=== PATIENT | male | born 1960 | race African-American/Black ===

== ENCOUNTER 2021-12-23 10:17 | Inpatient (IN) | payer OTHER ==
[2021-12-23 11:17] VITALS: BMI 23.9
[2021-12-23] MEDS ORDERED: LOPERAMIDE HCL 2 MG CAPSULE PO PRN (12:11)
[2021-12-23] MEDS ORDERED: MAG HYDROX/AL HYDROX/SIMETH 30 ML UNIT-DOSE CUP PO PRN (12:11)
[2021-12-23] MEDS ORDERED: P-EPHED 60MG/TRIPROLIDI 2.5MG TABLET PO PRN (12:11)
[2021-12-23] MEDS ORDERED: MAGNESIUM CITRATE 300 ML BOTTLE PO PRN (12:11)
[2021-12-23] MEDS ORDERED: guaiFENesin 200 MG/10 ML 10 ML UNIT-DOSE CUPS PO PRN (12:11)
[2021-12-23] MEDS ORDERED: MAGNESIUM HYDROX 2400MG/30ML ORAL SUSPENSION 30 ML CUP PO PRN (12:11)
[2021-12-23] MEDS ORDERED: IPRATROPIUM/ALBUTEROL (COMBIVENT) RESPIMAT 20-100 MCG IH PRN (12:47)
[2021-12-23 16:59] LABS: CALCIUM 8.9 mg/dL (8.5-10.1)
[2021-12-23 17:00] LABS: ALBUMIN 3.6 g/dl (3.4-5.0); BLOOD UREA NITROGEN 10.9 mg/dL (7-18)
[2021-12-23 17:03] LABS: CREATININE 0.9 mg/dL (0.55-1.3)
[2021-12-23 17:04] LABS: HEMATOCRIT 42.9 % (35.4-49); HEMOGLOBIN 14.6 GM/dL (11.7-16.9); MCH 30.7 pg (25.7-33.7); MEAN CELL VOLUME 90.3 fl (80-96); MEAN PLT VOLUME 7.2 fl (7.5-11.1); PLATELET COUNT 115 10^3/uL (134-434); RBC 4.75 M/mm3 (4.00-5.60); RDW 16.9 % (11.9-15.9); WHITE BLOOD COUNT 4.4 K/mm3 (4.0-10.0)
[2021-12-23 17:05] LABS: BILIRUBIN,TOTAL 0.7 mg/dL (0.2-1); TOT PROT 6.8 g/dl (6.4-8.2)
[2021-12-23] MEDS: hydrOXYzine PAMOATE 25 MG CAPSULE (FP) PO SCH ×3 (18:27→22:35)
[2021-12-23 20:05] LABS: SYPHILIS W/ RPR CONF NON-REACTIVE (NONREACTIVE)
[2021-12-23] MEDS: IBUPROFEN 400 MG TABLET (FP) PO PRN (20:29)
[2021-12-23] MEDS ORDERED: MELATONIN 5 MG TABLETS PO SCH (22:00)
[2021-12-23] MEDS: MONTELUKAST NA 10 MG TABLET PO SCH (22:32)
[2021-12-23] MEDS: THIAMINE HCL 100 MG TABLET (FP) PO SCH (22:32)
[2021-12-23] MEDS: TAMSULOSIN HCL 0.4 MG CAP PO SCH (22:35)
[2021-12-23] MEDS: BACITRACIN 0.9 GM PACKET TP SCH (22:38)
[2021-12-24] MEDS: hydrOXYzine PAMOATE 25 MG CAPSULE (FP) PO SCH ×2 (07:14→10:48)
[2021-12-24] MEDS: TAMSULOSIN HCL 0.4 MG CAP PO SCH ×2 (10:41→21:39)
[2021-12-24] MEDS: BACITRACIN 0.9 GM PACKET TP SCH (10:41)
[2021-12-24] MEDS: LISINOPRIL 20 MG TABLET PO SCH (10:41)
[2021-12-24] MEDS: amLODIPine BESYLATE 10 MG TABLET (FP) PO SCH (10:41)
[2021-12-24] MEDS: PRENATAL VITAMINS W/ FOLIC ACID TABLET (FP) PO SCH (10:41)
[2021-12-24] MEDS: NICOTINE 7 MG/24 HOURS TOPICAL PATCH TD SCH (10:42)
[2021-12-24] MEDS: ESCITALOPRAM OXALATE 20 MG TABLET PO SCH (10:42)
[2021-12-24] MEDS: IBUPROFEN 400 MG TABLET (FP) PO PRN ×2 (10:44→21:40)
[2021-12-24 12:49] LABS: URINE APPEARANCE CLEAR; URINE BILIRUBIN NEGATIVE (NEGATIVE); URINE COLOR YELLOW; URINE GLUCOSE (UA) NEGATIVE (NEGATIVE); URINE KETONE NEGATIVE (NEGATIVE); URINE LEUK ESTERASE NEGATIVE (NEGATIVE); URINE NITRITE NEGATIVE (NEGATIVE); URINE PROTEIN NEGATIVE (NEGATIVE); URINE UROBILINOGEN 0.2 mg/dL (0.2-1.0)
[2021-12-24] MEDS: SILVER SULFADIAZINE 1% TOP CREAM 50 GM JAR TP SCH (14:34)
[2021-12-24] MEDS: MONTELUKAST NA 10 MG TABLET PO SCH (21:39)
[2021-12-24] MEDS: MELATONIN 5 MG TABLETS PO SCH (21:39)
[2021-12-24] MEDS: THIAMINE HCL 100 MG TABLET (FP) PO SCH (21:39)
[2021-12-25] MEDS: TAMSULOSIN HCL 0.4 MG CAP PO SCH ×2 (10:31→21:51)
[2021-12-25] MEDS: PRENATAL VITAMINS W/ FOLIC ACID TABLET (FP) PO SCH (10:31)
[2021-12-25] MEDS: NICOTINE 7 MG/24 HOURS TOPICAL PATCH TD SCH (10:31)
[2021-12-25] MEDS: amLODIPine BESYLATE 10 MG TABLET (FP) PO SCH (10:31)
[2021-12-25] MEDS: LISINOPRIL 20 MG TABLET PO SCH (10:31)
[2021-12-25] MEDS: SILVER SULFADIAZINE 1% TOP CREAM 50 GM JAR TP SCH (10:31)
[2021-12-25] MEDS: ESCITALOPRAM OXALATE 20 MG TABLET PO SCH (10:31)
[2021-12-25] MEDS: IBUPROFEN 400 MG TABLET (FP) PO PRN ×2 (10:31→21:52)
[2021-12-25] MEDS: MELATONIN 5 MG TABLETS PO SCH (21:51)
[2021-12-25] MEDS: THIAMINE HCL 100 MG TABLET (FP) PO SCH (21:51)
[2021-12-25] MEDS: MONTELUKAST NA 10 MG TABLET PO SCH (21:52)
[2021-12-26] MEDS: LISINOPRIL 20 MG TABLET PO SCH (09:42)
[2021-12-26] MEDS: TAMSULOSIN HCL 0.4 MG CAP PO SCH ×2 (09:42→21:13)
[2021-12-26] MEDS: amLODIPine BESYLATE 10 MG TABLET (FP) PO SCH (09:42)
[2021-12-26] MEDS: PRENATAL VITAMINS W/ FOLIC ACID TABLET (FP) PO SCH (09:42)
[2021-12-26] MEDS: ESCITALOPRAM OXALATE 20 MG TABLET PO SCH (09:43)
[2021-12-26] MEDS: IBUPROFEN 400 MG TABLET (FP) PO PRN ×2 (09:44→21:13)
[2021-12-26] MEDS: NICOTINE 7 MG/24 HOURS TOPICAL PATCH TD SCH (10:00)
[2021-12-26] MEDS: SILVER SULFADIAZINE 1% TOP CREAM 50 GM JAR TP SCH (10:30)
[2021-12-26] MEDS: THIAMINE HCL 100 MG TABLET (FP) PO SCH (21:13)
[2021-12-26] MEDS: MELATONIN 5 MG TABLETS PO SCH (21:13)
[2021-12-26] MEDS: MONTELUKAST NA 10 MG TABLET PO SCH (21:14)
[2021-12-26] MEDS: hydrOXYzine PAMOATE 25 MG CAPSULE (FP) PO PRN (21:15)
[2021-12-27] MEDS: PRENATAL VITAMINS W/ FOLIC ACID TABLET (FP) PO SCH (10:27)
[2021-12-27] MEDS: LISINOPRIL 20 MG TABLET PO SCH (10:27)
[2021-12-27] MEDS: TAMSULOSIN HCL 0.4 MG CAP PO SCH ×2 (10:28→22:06)
[2021-12-27] MEDS: amLODIPine BESYLATE 10 MG TABLET (FP) PO SCH (10:28)
[2021-12-27] MEDS: NICOTINE 7 MG/24 HOURS TOPICAL PATCH TD SCH (10:28)
[2021-12-27] MEDS: ESCITALOPRAM OXALATE 20 MG TABLET PO SCH (10:28)
[2021-12-27] MEDS: SILVER SULFADIAZINE 1% TOP CREAM 50 GM JAR TP SCH (10:28)
[2021-12-27] MEDS: IBUPROFEN 400 MG TABLET (FP) PO PRN (10:29)
[2021-12-27] MEDS: MELATONIN 5 MG TABLETS PO SCH (22:06)
[2021-12-27] MEDS: THIAMINE HCL 100 MG TABLET (FP) PO SCH (22:06)
[2021-12-27] MEDS: MONTELUKAST NA 10 MG TABLET PO SCH (22:11)
[2021-12-28] MEDS: PRENATAL VITAMINS W/ FOLIC ACID TABLET (FP) PO SCH (10:29)
[2021-12-28] MEDS: LISINOPRIL 20 MG TABLET PO SCH (10:29)
[2021-12-28] MEDS: NICOTINE 7 MG/24 HOURS TOPICAL PATCH TD SCH (10:29)
[2021-12-28] MEDS: TAMSULOSIN HCL 0.4 MG CAP PO SCH ×2 (10:29→21:30)
[2021-12-28] MEDS: SILVER SULFADIAZINE 1% TOP CREAM 50 GM JAR TP SCH (10:29)
[2021-12-28] MEDS: amLODIPine BESYLATE 10 MG TABLET (FP) PO SCH (10:29)
[2021-12-28] MEDS: ESCITALOPRAM OXALATE 20 MG TABLET PO SCH (10:29)
[2021-12-28] MEDS: ACETAMINOPHEN 325 MG TABLET (FP) PO PRN (10:30)
[2021-12-28] MEDS: MONTELUKAST NA 10 MG TABLET PO SCH (21:30)
[2021-12-28] MEDS: MELATONIN 5 MG TABLETS PO SCH (21:30)
[2021-12-28] MEDS: THIAMINE HCL 100 MG TABLET (FP) PO SCH (21:30)
[2021-12-29] MEDS: ESCITALOPRAM OXALATE 20 MG TABLET PO SCH (10:41)
[2021-12-29] MEDS: LISINOPRIL 20 MG TABLET PO SCH (10:41)
[2021-12-29] MEDS: amLODIPine BESYLATE 10 MG TABLET (FP) PO SCH (10:41)
[2021-12-29] MEDS: SILVER SULFADIAZINE 1% TOP CREAM 50 GM JAR TP SCH (10:41)
[2021-12-29] MEDS: TAMSULOSIN HCL 0.4 MG CAP PO SCH ×2 (10:41→21:04)
[2021-12-29] MEDS: PRENATAL VITAMINS W/ FOLIC ACID TABLET (FP) PO SCH (10:41)
[2021-12-29] MEDS: NICOTINE 7 MG/24 HOURS TOPICAL PATCH TD SCH (10:42)
[2021-12-29] MEDS: THIAMINE HCL 100 MG TABLET (FP) PO SCH (21:04)
[2021-12-29] MEDS: MELATONIN 5 MG TABLETS PO SCH (21:04)
[2021-12-29] MEDS: hydrOXYzine PAMOATE 25 MG CAPSULE (FP) PO PRN (21:04)
[2021-12-29] MEDS: MONTELUKAST NA 10 MG TABLET PO SCH (21:04)
[2021-12-30] MEDS: PRENATAL VITAMINS W/ FOLIC ACID TABLET (FP) PO SCH (10:43)
[2021-12-30] MEDS: amLODIPine BESYLATE 10 MG TABLET (FP) PO SCH (10:44)
[2021-12-30] MEDS: LISINOPRIL 20 MG TABLET PO SCH (10:44)
[2021-12-30] MEDS: ESCITALOPRAM OXALATE 20 MG TABLET PO SCH (10:44)
[2021-12-30] MEDS: TAMSULOSIN HCL 0.4 MG CAP PO SCH ×2 (10:44→21:05)
[2021-12-30] MEDS: SILVER SULFADIAZINE 1% TOP CREAM 50 GM JAR TP SCH (10:44)
[2021-12-30] MEDS: NICOTINE 7 MG/24 HOURS TOPICAL PATCH TD SCH (10:45)
[2021-12-30] MEDS: MONTELUKAST NA 10 MG TABLET PO SCH (21:05)
[2021-12-30] MEDS: THIAMINE HCL 100 MG TABLET (FP) PO SCH (21:05)
[2021-12-30] MEDS: MELATONIN 5 MG TABLETS PO SCH (21:06)
[2021-12-30] MEDS: hydrOXYzine PAMOATE 25 MG CAPSULE (FP) PO PRN (21:06)
[2021-12-30] MEDS: COLLOIDAL OATMEAL 1 BAR EACH TP PRN (21:08)
[2021-12-30] MEDS: NICOTINE 10 MG CARTRIDGE (INHALER) IH PRN (21:08)
[2021-12-31] MEDS: PRENATAL VITAMINS W/ FOLIC ACID TABLET (FP) PO SCH (10:34)
[2021-12-31] MEDS: TAMSULOSIN HCL 0.4 MG CAP PO SCH ×2 (10:35→21:15)
[2021-12-31] MEDS: ESCITALOPRAM OXALATE 20 MG TABLET PO SCH (10:35)
[2021-12-31] MEDS: amLODIPine BESYLATE 10 MG TABLET (FP) PO SCH (10:35)
[2021-12-31] MEDS: LISINOPRIL 20 MG TABLET PO SCH (10:35)
[2021-12-31] MEDS: NICOTINE 7 MG/24 HOURS TOPICAL PATCH TD SCH (10:36)
[2021-12-31] MEDS: SILVER SULFADIAZINE 1% TOP CREAM 50 GM JAR TP SCH (10:36)
[2021-12-31] MEDS: hydrOXYzine PAMOATE 25 MG CAPSULE (FP) PO PRN (21:15)
[2021-12-31] MEDS: THIAMINE HCL 100 MG TABLET (FP) PO SCH (21:15)
[2021-12-31] MEDS: MELATONIN 5 MG TABLETS PO SCH (21:15)
[2021-12-31] MEDS: MONTELUKAST NA 10 MG TABLET PO SCH (21:15)
[2022-01-01] MEDS: LISINOPRIL 20 MG TABLET PO SCH (10:26)
[2022-01-01] MEDS: TAMSULOSIN HCL 0.4 MG CAP PO SCH ×2 (10:26→22:03)
[2022-01-01] MEDS: amLODIPine BESYLATE 10 MG TABLET (FP) PO SCH (10:26)
[2022-01-01] MEDS: PRENATAL VITAMINS W/ FOLIC ACID TABLET (FP) PO SCH (10:26)
[2022-01-01] MEDS: ESCITALOPRAM OXALATE 20 MG TABLET PO SCH (10:26)
[2022-01-01] MEDS: NICOTINE 7 MG/24 HOURS TOPICAL PATCH TD SCH (10:27)
[2022-01-01] MEDS: SILVER SULFADIAZINE 1% TOP CREAM 50 GM JAR TP SCH (10:27)
[2022-01-01] MEDS: MONTELUKAST NA 10 MG TABLET PO SCH (22:03)
[2022-01-01] MEDS: THIAMINE HCL 100 MG TABLET (FP) PO SCH (22:03)
[2022-01-01] MEDS: MELATONIN 5 MG TABLETS PO SCH (22:03)
[2022-01-02] MEDS: LISINOPRIL 20 MG TABLET PO SCH (10:28)
[2022-01-02] MEDS: PRENATAL VITAMINS W/ FOLIC ACID TABLET (FP) PO SCH (10:28)
[2022-01-02] MEDS: TAMSULOSIN HCL 0.4 MG CAP PO SCH ×2 (10:28→22:13)
[2022-01-02] MEDS: amLODIPine BESYLATE 10 MG TABLET (FP) PO SCH (10:28)
[2022-01-02] MEDS: ESCITALOPRAM OXALATE 20 MG TABLET PO SCH (10:28)
[2022-01-02] MEDS: NICOTINE 7 MG/24 HOURS TOPICAL PATCH TD SCH (10:28)
[2022-01-02] MEDS: SILVER SULFADIAZINE 1% TOP CREAM 50 GM JAR TP SCH (10:29)
[2022-01-02] MEDS: MELATONIN 5 MG TABLETS PO SCH (22:13)
[2022-01-02] MEDS: MONTELUKAST NA 10 MG TABLET PO SCH (22:13)
[2022-01-02] MEDS: THIAMINE HCL 100 MG TABLET (FP) PO SCH (22:13)
[2022-01-03] MEDS: ESCITALOPRAM OXALATE 20 MG TABLET PO SCH (10:35)
[2022-01-03] MEDS: amLODIPine BESYLATE 10 MG TABLET (FP) PO SCH (10:35)
[2022-01-03] MEDS: LISINOPRIL 20 MG TABLET PO SCH (10:35)
[2022-01-03] MEDS: TAMSULOSIN HCL 0.4 MG CAP PO SCH ×2 (10:35→22:19)
[2022-01-03] MEDS: PRENATAL VITAMINS W/ FOLIC ACID TABLET (FP) PO SCH (10:35)
[2022-01-03] MEDS: NICOTINE 7 MG/24 HOURS TOPICAL PATCH TD SCH (10:36)
[2022-01-03] MEDS: SILVER SULFADIAZINE 1% TOP CREAM 50 GM JAR TP SCH (10:36)
[2022-01-03] MEDS: NICOTINE 10 MG CARTRIDGE (INHALER) IH PRN (20:02)
[2022-01-03] MEDS: THIAMINE HCL 100 MG TABLET (FP) PO SCH (22:19)
[2022-01-03] MEDS: MELATONIN 5 MG TABLETS PO SCH (22:19)
[2022-01-03] MEDS: MONTELUKAST NA 10 MG TABLET PO SCH (22:19)
[2022-01-04] MEDS: amLODIPine BESYLATE 10 MG TABLET (FP) PO SCH (11:16)
[2022-01-04] MEDS: ESCITALOPRAM OXALATE 20 MG TABLET PO SCH (11:16)
[2022-01-04] MEDS: PRENATAL VITAMINS W/ FOLIC ACID TABLET (FP) PO SCH (11:16)
[2022-01-04] MEDS: TAMSULOSIN HCL 0.4 MG CAP PO SCH ×2 (11:17→21:11)
[2022-01-04] MEDS: NICOTINE 7 MG/24 HOURS TOPICAL PATCH TD SCH (11:17)
[2022-01-04] MEDS: SILVER SULFADIAZINE 1% TOP CREAM 50 GM JAR TP SCH (11:19)
[2022-01-04] MEDS: LISINOPRIL 20 MG TABLET PO SCH (12:07)
[2022-01-04] MEDS: THIAMINE HCL 100 MG TABLET (FP) PO SCH (21:11)
[2022-01-04] MEDS: MELATONIN 5 MG TABLETS PO SCH (21:12)
[2022-01-04] MEDS: MONTELUKAST NA 10 MG TABLET PO SCH (21:14)
[2022-01-05] MEDS: LISINOPRIL 20 MG TABLET PO SCH (10:28)
[2022-01-05] MEDS: ESCITALOPRAM OXALATE 20 MG TABLET PO SCH (10:28)
[2022-01-05] MEDS: TAMSULOSIN HCL 0.4 MG CAP PO SCH ×2 (10:28→21:11)
[2022-01-05] MEDS: amLODIPine BESYLATE 10 MG TABLET (FP) PO SCH (10:28)
[2022-01-05] MEDS: NICOTINE 7 MG/24 HOURS TOPICAL PATCH TD SCH (10:29)
[2022-01-05] MEDS: PRENATAL VITAMINS W/ FOLIC ACID TABLET (FP) PO SCH (10:29)
[2022-01-05] MEDS: METHYL SALICYLATE/MENTHOL OINT 30 GM TUBE TP SCH ×2 (10:29→21:55)
[2022-01-05] MEDS: SILVER SULFADIAZINE 1% TOP CREAM 50 GM JAR TP SCH (10:30)
[2022-01-05] MEDS: HYDROCORTISONE 0.5% TOPICAL CREAM 30 GM TUBE TP SCH ×2 (10:39→21:55)
[2022-01-05] MEDS: NICOTINE 10 MG CARTRIDGE (INHALER) IH PRN (18:56)
[2022-01-05] MEDS: THIAMINE HCL 100 MG TABLET (FP) PO SCH (21:11)
[2022-01-05] MEDS: MONTELUKAST NA 10 MG TABLET PO SCH (21:11)
[2022-01-05] MEDS: MELATONIN 5 MG TABLETS PO SCH (21:56)
[2022-01-06 07:34] VITALS: RESP 18
[2022-01-06] MEDS: amLODIPine BESYLATE 10 MG TABLET (FP) PO SCH (10:37)
[2022-01-06] MEDS: ESCITALOPRAM OXALATE 20 MG TABLET PO SCH (10:37)
[2022-01-06] MEDS: LISINOPRIL 20 MG TABLET PO SCH (10:37)
[2022-01-06] MEDS: PRENATAL VITAMINS W/ FOLIC ACID TABLET (FP) PO SCH (10:37)
[2022-01-06] MEDS: TAMSULOSIN HCL 0.4 MG CAP PO SCH ×2 (10:38→21:29)
[2022-01-06] MEDS: SILVER SULFADIAZINE 1% TOP CREAM 50 GM JAR TP SCH (10:39)
[2022-01-06] MEDS: METHYL SALICYLATE/MENTHOL OINT 30 GM TUBE TP SCH ×2 (10:39→21:30)
[2022-01-06] MEDS: HYDROCORTISONE 0.5% TOPICAL CREAM 30 GM TUBE TP SCH ×2 (10:39→21:30)
[2022-01-06] MEDS: NICOTINE 7 MG/24 HOURS TOPICAL PATCH TD SCH (10:39)
[2022-01-06] MEDS: MONTELUKAST NA 10 MG TABLET PO SCH (21:29)
[2022-01-06] MEDS: THIAMINE HCL 100 MG TABLET (FP) PO SCH (21:29)
[2022-01-06] MEDS: MELATONIN 5 MG TABLETS PO SCH (21:30)
[2022-01-07] MEDS: PRENATAL VITAMINS W/ FOLIC ACID TABLET (FP) PO SCH (10:39)
[2022-01-07] MEDS: METHYL SALICYLATE/MENTHOL OINT 30 GM TUBE TP SCH ×2 (10:40→22:15)
[2022-01-07] MEDS: TAMSULOSIN HCL 0.4 MG CAP PO SCH ×2 (10:40→21:32)
[2022-01-07] MEDS: ESCITALOPRAM OXALATE 20 MG TABLET PO SCH (10:40)
[2022-01-07] MEDS: LISINOPRIL 20 MG TABLET PO SCH (10:40)
[2022-01-07] MEDS: amLODIPine BESYLATE 10 MG TABLET (FP) PO SCH (10:40)
[2022-01-07] MEDS: HYDROCORTISONE 0.5% TOPICAL CREAM 30 GM TUBE TP SCH ×2 (10:41→22:16)
[2022-01-07] MEDS: NICOTINE 7 MG/24 HOURS TOPICAL PATCH TD SCH (10:41)
[2022-01-07] MEDS: MONTELUKAST NA 10 MG TABLET PO SCH (21:32)
[2022-01-07] MEDS: THIAMINE HCL 100 MG TABLET (FP) PO SCH (21:32)
[2022-01-07] MEDS: MELATONIN 5 MG TABLETS PO SCH (22:16)
[2022-01-08] MEDS: PRENATAL VITAMINS W/ FOLIC ACID TABLET (FP) PO SCH (10:41)
[2022-01-08] MEDS: TAMSULOSIN HCL 0.4 MG CAP PO SCH ×2 (10:43→21:03)
[2022-01-08] MEDS: LISINOPRIL 20 MG TABLET PO SCH (10:44)
[2022-01-08] MEDS: amLODIPine BESYLATE 10 MG TABLET (FP) PO SCH (10:44)
[2022-01-08] MEDS: NICOTINE 7 MG/24 HOURS TOPICAL PATCH TD SCH (10:44)
[2022-01-08] MEDS: ESCITALOPRAM OXALATE 20 MG TABLET PO SCH (10:44)
[2022-01-08] MEDS: HYDROCORTISONE 0.5% TOPICAL CREAM 30 GM TUBE TP SCH ×2 (10:44→21:04)
[2022-01-08] MEDS: METHYL SALICYLATE/MENTHOL OINT 30 GM TUBE TP SCH ×2 (10:47→21:04)
[2022-01-08] MEDS: THIAMINE HCL 100 MG TABLET (FP) PO SCH (21:03)
[2022-01-08] MEDS: MONTELUKAST NA 10 MG TABLET PO SCH (21:03)
[2022-01-08] MEDS: MELATONIN 5 MG TABLETS PO SCH (21:04)
[2022-01-09] MEDS: ESCITALOPRAM OXALATE 20 MG TABLET PO SCH (10:36)
[2022-01-09] MEDS: TAMSULOSIN HCL 0.4 MG CAP PO SCH ×2 (10:36→21:20)
[2022-01-09] MEDS: PRENATAL VITAMINS W/ FOLIC ACID TABLET (FP) PO SCH (10:36)
[2022-01-09] MEDS: amLODIPine BESYLATE 10 MG TABLET (FP) PO SCH (10:36)
[2022-01-09] MEDS: NICOTINE 7 MG/24 HOURS TOPICAL PATCH TD SCH (10:37)
[2022-01-09] MEDS: LISINOPRIL 20 MG TABLET PO SCH (10:37)
[2022-01-09] MEDS: HYDROCORTISONE 0.5% TOPICAL CREAM 30 GM TUBE TP SCH ×2 (10:37→21:21)
[2022-01-09] MEDS: METHYL SALICYLATE/MENTHOL OINT 30 GM TUBE TP SCH ×2 (10:37→22:37)
[2022-01-09] MEDS: NICOTINE 10 MG CARTRIDGE (INHALER) IH PRN (12:46)
[2022-01-09] MEDS: MONTELUKAST NA 10 MG TABLET PO SCH (21:20)
[2022-01-09] MEDS: THIAMINE HCL 100 MG TABLET (FP) PO SCH (21:20)
[2022-01-09] MEDS: MELATONIN 5 MG TABLETS PO SCH (21:21)
[2022-01-10] MEDS: hydrOXYzine PAMOATE 25 MG CAPSULE (FP) PO PRN (01:59)
[2022-01-10] MEDS: TAMSULOSIN HCL 0.4 MG CAP PO SCH ×2 (09:51→21:08)
[2022-01-10] MEDS: PRENATAL VITAMINS W/ FOLIC ACID TABLET (FP) PO SCH (09:51)
[2022-01-10] MEDS: amLODIPine BESYLATE 10 MG TABLET (FP) PO SCH (09:52)
[2022-01-10] MEDS: ESCITALOPRAM OXALATE 20 MG TABLET PO SCH (09:52)
[2022-01-10] MEDS: LISINOPRIL 20 MG TABLET PO SCH (09:52)
[2022-01-10] MEDS: HYDROCORTISONE 0.5% TOPICAL CREAM 30 GM TUBE TP SCH ×2 (09:53→21:09)
[2022-01-10] MEDS: NICOTINE 7 MG/24 HOURS TOPICAL PATCH TD SCH (09:54)
[2022-01-10] MEDS: METHYL SALICYLATE/MENTHOL OINT 30 GM TUBE TP SCH ×2 (11:49→21:09)
[2022-01-10] MEDS: THIAMINE HCL 100 MG TABLET (FP) PO SCH (21:08)
[2022-01-10] MEDS: MELATONIN 5 MG TABLETS PO SCH (21:09)
[2022-01-10] MEDS: MONTELUKAST NA 10 MG TABLET PO SCH (22:15)
[2022-01-11] MEDS: METHYL SALICYLATE/MENTHOL OINT 30 GM TUBE TP SCH ×2 (10:42→21:29)
[2022-01-11] MEDS: ACETAMINOPHEN 325 MG TABLET (FP) PO PRN (10:43)
[2022-01-11] MEDS: TAMSULOSIN HCL 0.4 MG CAP PO SCH ×2 (10:44→21:28)
[2022-01-11] MEDS: PRENATAL VITAMINS W/ FOLIC ACID TABLET (FP) PO SCH (10:44)
[2022-01-11] MEDS: LISINOPRIL 20 MG TABLET PO SCH (10:44)
[2022-01-11] MEDS: amLODIPine BESYLATE 10 MG TABLET (FP) PO SCH (10:44)
[2022-01-11] MEDS: ESCITALOPRAM OXALATE 20 MG TABLET PO SCH (10:44)
[2022-01-11] MEDS: NICOTINE 7 MG/24 HOURS TOPICAL PATCH TD SCH (10:44)
[2022-01-11] MEDS: HYDROCORTISONE 0.5% TOPICAL CREAM 30 GM TUBE TP SCH ×2 (11:17→21:29)
[2022-01-11] MEDS: NICOTINE 10 MG CARTRIDGE (INHALER) IH PRN (12:40)
[2022-01-11] MEDS: MONTELUKAST NA 10 MG TABLET PO SCH (21:28)
[2022-01-11] MEDS: MELATONIN 5 MG TABLETS PO SCH (21:28)
[2022-01-11] MEDS: THIAMINE HCL 100 MG TABLET (FP) PO SCH (21:28)
[2022-01-12] MEDS: hydrOXYzine PAMOATE 25 MG CAPSULE (FP) PO PRN ×2 (02:46→21:08)
[2022-01-12] MEDS: LISINOPRIL 20 MG TABLET PO SCH (10:42)
[2022-01-12] MEDS: amLODIPine BESYLATE 10 MG TABLET (FP) PO SCH (10:42)
[2022-01-12] MEDS: ESCITALOPRAM OXALATE 20 MG TABLET PO SCH (10:42)
[2022-01-12] MEDS: PRENATAL VITAMINS W/ FOLIC ACID TABLET (FP) PO SCH (10:42)
[2022-01-12] MEDS: TAMSULOSIN HCL 0.4 MG CAP PO SCH ×2 (10:43→21:08)
[2022-01-12] MEDS: NICOTINE 7 MG/24 HOURS TOPICAL PATCH TD SCH (10:43)
[2022-01-12] MEDS: METHYL SALICYLATE/MENTHOL OINT 30 GM TUBE TP SCH ×2 (10:44→21:38)
[2022-01-12] MEDS: COLLOIDAL OATMEAL 1 BAR EACH TP PRN (19:33)
[2022-01-12] MEDS: NICOTINE 10 MG CARTRIDGE (INHALER) IH PRN (19:34)
[2022-01-12] MEDS: MONTELUKAST NA 10 MG TABLET PO SCH (21:08)
[2022-01-12] MEDS: THIAMINE HCL 100 MG TABLET (FP) PO SCH (21:08)
[2022-01-12] MEDS: MELATONIN 5 MG TABLETS PO SCH (21:08)
[2022-01-13 07:37] VITALS: TEMP 97.6
[2022-01-13] MEDS: METHYL SALICYLATE/MENTHOL OINT 30 GM TUBE TP SCH (09:05)
[2022-01-13] MEDS: ESCITALOPRAM OXALATE 20 MG TABLET PO SCH (09:05)
[2022-01-13] MEDS: PRENATAL VITAMINS W/ FOLIC ACID TABLET (FP) PO SCH (09:05)
[2022-01-13] MEDS: LISINOPRIL 20 MG TABLET PO SCH (09:05)
[2022-01-13] MEDS: amLODIPine BESYLATE 10 MG TABLET (FP) PO SCH (09:05)
[2022-01-13] MEDS: NICOTINE 7 MG/24 HOURS TOPICAL PATCH TD SCH (09:05)
[2022-01-13] MEDS: TAMSULOSIN HCL 0.4 MG CAP PO SCH (09:05)
[2022-01-13 09:07] VITALS: BP 118/69; PULSE 92
== END 2022-01-13 09:10 | disposition home or self-care (01) | DRG 772 ==
LOC: YASAS 10:17 → Y5N 17:14
PROVIDERS: ADMIT Allergy & Immunology; ATTEND Psychiatry & Neurology Pain Medicine
PROC: HZ42ZZZ Group Counseling for Substance Abuse Treatment, Cognitive-Behavioral (ICD-10-PCS; principal; 2021-12-23)
DX: F10.20 Alcohol dependence, uncomplicated (principal); F14.20 Cocaine dependence, uncomplicated; F12.20 Cannabis dependence, uncomplicated; F17.210 Nicotine dependence, cigarettes, uncomplicated; F19.24 Other psychoactive substance dependence with psychoactive substance-induced mood disorder; I10 Essential (primary) hypertension; J44.9 Chronic obstructive pulmonary disease, unspecified; M25.561 Pain in right knee; M25.571 Pain in right ankle and joints of right foot; M54.50 Low back pain, unspecified; G89.29 Other chronic pain; N40.0 Benign prostatic hyperplasia without lower urinary tract symptoms; R21 Rash and other nonspecific skin eruption; Z62.810 Personal history of physical and sexual abuse in childhood; T21.24XD Burn of second degree of lower back, subsequent encounter; T21.23XD Burn of second degree of upper back, subsequent encounter; X97.XXXD Assault by smoke, fire and flames, subsequent encounter
CPT/HCPCS: 36415; 71046-TC-FY; 80053; 81003; 85027; 86780; 86803; 93005; 93010; C9803-CS; J3535; U0003; U0005

== ENCOUNTER 2022-02-22 11:08 | Inpatient (IN) | payer OTHER ==
[2022-02-22 11:52] VITALS: BMI 25.2
[2022-02-22] MEDS ORDERED: FLU VACC QS2022-23(6MOS UP)/PF 60 MCG/0.5 ML SYRINGE IM ONE (12:14)
[2022-02-22] MEDS ORDERED: LOPERAMIDE HCL 2 MG CAPSULE PO PRN (15:56)
[2022-02-22] MEDS ORDERED: MAG HYDROX/AL HYDROX/SIMETH 30 ML UNIT-DOSE CUP PO PRN (15:56)
[2022-02-22] MEDS ORDERED: MAGNESIUM HYDROX 2400MG/30ML ORAL SUSPENSION 30 ML CUP PO PRN (15:56)
[2022-02-22] MEDS ORDERED: NICOTINE 10 MG CARTRIDGE (INHALER) IH PRN (15:56)
[2022-02-22] MEDS ORDERED: MAGNESIUM CITRATE 300 ML BOTTLE PO PRN (15:56)
[2022-02-22] MEDS ORDERED: PATIENT'S OWN MEDICATION (NON-FORMULARY) (Lisinopril [Prinivil -] 40 MG Tablet) PO SCH (16:00)
[2022-02-22] MEDS: PRENATAL VITAMINS W/ FOLIC ACID TABLET (FP) PO SCH (16:47)
[2022-02-22] MEDS: HYDROCHLOROTHIAZIDE 25 MG TABLET (FP) PO SCH (16:48)
[2022-02-22] MEDS: amLODIPine BESYLATE 10 MG TABLET (FP) PO SCH (16:48)
[2022-02-22] MEDS: LISINOPRIL 20 MG TABLET PO SCH (16:48)
[2022-02-22] MEDS: TAMSULOSIN HCL 0.4 MG CAP PO SCH (16:48)
[2022-02-22] MEDS: NICOTINE 7 MG/24 HOURS TOPICAL PATCH TD SCH (16:52)
[2022-02-22] MEDS: MELATONIN 5 MG TABLETS PO SCH (21:33)
[2022-02-22] MEDS: THIAMINE HCL 100 MG TABLET (FP) PO SCH (21:33)
[2022-02-22] MEDS: MONTELUKAST NA 10 MG TABLET PO SCH (21:33)
[2022-02-23 07:11] VITALS: RESP 18
[2022-02-23] MEDS: PRENATAL VITAMINS W/ FOLIC ACID TABLET (FP) PO SCH (10:17)
[2022-02-23] MEDS: TAMSULOSIN HCL 0.4 MG CAP PO SCH (10:17)
[2022-02-23] MEDS: amLODIPine BESYLATE 10 MG TABLET (FP) PO SCH (10:18)
[2022-02-23] MEDS: NICOTINE 7 MG/24 HOURS TOPICAL PATCH TD SCH (10:18)
[2022-02-23] MEDS: HYDROCHLOROTHIAZIDE 25 MG TABLET (FP) PO SCH (10:18)
[2022-02-23] MEDS: LISINOPRIL 20 MG TABLET PO SCH (10:18)
[2022-02-23 10:53] LABS: HEMATOCRIT 40.7 % (35.4-49); HEMOGLOBIN 13.7 GM/dL (11.7-16.9); MCH 30.7 pg (25.7-33.7); MCHC 33.8 g/dl (32.0-35.9); MEAN CELL VOLUME 90.7 fl (80-96); MEAN PLT VOLUME 7.4 fl (7.5-11.1); PLATELET COUNT 142 10^3/uL (134-434); RBC 4.48 M/mm3 (4.00-5.60); RDW 16.9 % (11.9-15.9); URINE APPEARANCE CLEAR; URINE BILIRUBIN NEGATIVE (NEGATIVE); URINE COLOR YELLOW; URINE GLUCOSE (UA) NEGATIVE (NEGATIVE); URINE KETONE NEGATIVE (NEGATIVE); URINE LEUK ESTERASE NEGATIVE (NEGATIVE); URINE NITRITE NEGATIVE (NEGATIVE); URINE PROTEIN NEGATIVE (NEGATIVE); URINE UROBILINOGEN 0.2 mg/dL (0.2-1.0); WHITE BLOOD COUNT 3.1 K/mm3 (4.0-10.0)
[2022-02-23 11:29] LABS: CALCIUM 9.5 mg/dL (8.5-10.1)
[2022-02-23 11:30] LABS: ALBUMIN 3.4 g/dl (3.4-5.0); BLOOD UREA NITROGEN 16.6 mg/dL (7-18)
[2022-02-23 11:33] LABS: CREATININE 1.1 mg/dL (0.55-1.3)
[2022-02-23 11:36] LABS: BILIRUBIN,TOTAL 0.5 mg/dL (0.2-1)
[2022-02-23 11:49] LABS: SYPHILIS W/ RPR CONF NON-REACTIVE (NONREACTIVE)
[2022-02-23] MEDS ORDERED: ALBUTEROL SO4 HFA INHALER IH PRN (11:58)
[2022-02-23] MEDS ORDERED: FLU VACC QS2022-23(6MOS UP)/PF 60 MCG/0.5 ML SYRINGE IM ONE (12:00)
[2022-02-23] MEDS ORDERED: PNEUMOCOCCAL 23 VACCINE 0.5 ML VIAL IM ONE (12:06)
[2022-02-23] MEDS: IBUPROFEN 400 MG TABLET (FP) PO PRN (12:09)
[2022-02-23] MEDS ORDERED: PNEUMOC 20-VAL CONJ-DIP CRM/PF 0.5 ML SYRINGE IM ONE (13:15)
[2022-02-23] MEDS: guaiFENesin 200 MG/10 ML 10 ML UNIT-DOSE CUPS PO PRN (15:14)
[2022-02-23] MEDS: ACETAMINOPHEN 325 MG TABLET (FP) PO PRN (15:14)
[2022-02-23] MEDS: THIAMINE HCL 100 MG TABLET (FP) PO SCH (21:09)
[2022-02-23] MEDS: MELATONIN 5 MG TABLETS PO SCH (21:09)
[2022-02-23] MEDS: MONTELUKAST NA 10 MG TABLET PO SCH (21:09)
[2022-02-24] MEDS: ACETAMINOPHEN 325 MG TABLET (FP) PO PRN ×2 (02:17→18:21)
[2022-02-24] MEDS: P-EPHED 60MG/TRIPROLIDI 2.5MG TABLET PO PRN ×2 (06:05→21:26)
[2022-02-24] MEDS: guaiFENesin 200 MG/10 ML 10 ML UNIT-DOSE CUPS PO PRN (06:05)
[2022-02-24] MEDS: TAMSULOSIN HCL 0.4 MG CAP PO SCH (07:36)
[2022-02-24] MEDS: PRENATAL VITAMINS W/ FOLIC ACID TABLET (FP) PO SCH (09:06)
[2022-02-24] MEDS: IBUPROFEN 400 MG TABLET (FP) PO PRN (09:08)
[2022-02-24] MEDS: HYDROCHLOROTHIAZIDE 25 MG TABLET (FP) PO SCH (09:09)
[2022-02-24] MEDS: amLODIPine BESYLATE 10 MG TABLET (FP) PO SCH (09:09)
[2022-02-24] MEDS: NICOTINE 7 MG/24 HOURS TOPICAL PATCH TD SCH (09:09)
[2022-02-24] MEDS: LISINOPRIL 20 MG TABLET PO SCH (09:09)
[2022-02-24] MEDS: MONTELUKAST NA 10 MG TABLET PO SCH (21:26)
[2022-02-24] MEDS: MELATONIN 5 MG TABLETS PO SCH (21:26)
[2022-02-24] MEDS: THIAMINE HCL 100 MG TABLET (FP) PO SCH (21:26)
[2022-02-25] MEDS: TAMSULOSIN HCL 0.4 MG CAP PO SCH (07:56)
[2022-02-25] MEDS: PRENATAL VITAMINS W/ FOLIC ACID TABLET (FP) PO SCH (09:01)
[2022-02-25] MEDS: NICOTINE 7 MG/24 HOURS TOPICAL PATCH TD SCH (09:01)
[2022-02-25] MEDS: guaiFENesin 200 MG/10 ML 10 ML UNIT-DOSE CUPS PO PRN (09:04)
[2022-02-25] MEDS: P-EPHED 60MG/TRIPROLIDI 2.5MG TABLET PO PRN ×2 (09:04→21:09)
[2022-02-25] MEDS: hydrOXYzine PAMOATE 25 MG CAPSULE (FP) PO PRN (09:04)
[2022-02-25] MEDS: HYDROCHLOROTHIAZIDE 25 MG TABLET (FP) PO SCH (09:05)
[2022-02-25] MEDS: IBUPROFEN 400 MG TABLET (FP) PO PRN (09:05)
[2022-02-25] MEDS: amLODIPine BESYLATE 10 MG TABLET (FP) PO SCH (09:05)
[2022-02-25] MEDS: LISINOPRIL 20 MG TABLET PO SCH (09:05)
[2022-02-25] MEDS: ACETAMINOPHEN 325 MG TABLET (FP) PO PRN (17:02)
[2022-02-25] MEDS ORDERED: TAMSULOSIN HCL 0.4 MG CAP PO ONE (20:08)
[2022-02-25] MEDS: MELATONIN 5 MG TABLETS PO SCH (21:08)
[2022-02-25] MEDS: MONTELUKAST NA 10 MG TABLET PO SCH (21:08)
[2022-02-25] MEDS: THIAMINE HCL 100 MG TABLET (FP) PO SCH (21:08)
[2022-02-26] MEDS: IBUPROFEN 400 MG TABLET (FP) PO PRN (08:52)
[2022-02-26] MEDS: hydrOXYzine PAMOATE 25 MG CAPSULE (FP) PO PRN (08:53)
[2022-02-26] MEDS: guaiFENesin 200 MG/10 ML 10 ML UNIT-DOSE CUPS PO PRN (08:53)
[2022-02-26] MEDS: TAMSULOSIN HCL 0.4 MG CAP PO SCH (08:55)
[2022-02-26] MEDS: HYDROCHLOROTHIAZIDE 25 MG TABLET (FP) PO SCH (09:04)
[2022-02-26] MEDS: ESCITALOPRAM OXALATE 10 MG TABLET PO SCH (09:04)
[2022-02-26] MEDS: PRENATAL VITAMINS W/ FOLIC ACID TABLET (FP) PO SCH (09:04)
[2022-02-26] MEDS: amLODIPine BESYLATE 10 MG TABLET (FP) PO SCH (09:04)
[2022-02-26] MEDS: LISINOPRIL 20 MG TABLET PO SCH (09:06)
[2022-02-26] MEDS: NICOTINE 7 MG/24 HOURS TOPICAL PATCH TD SCH (09:07)
[2022-02-26] MEDS: MELATONIN 5 MG TABLETS PO SCH (21:40)
[2022-02-26] MEDS: MONTELUKAST NA 10 MG TABLET PO SCH (21:40)
[2022-02-26] MEDS: THIAMINE HCL 100 MG TABLET (FP) PO SCH (21:41)
[2022-02-27] MEDS: HYDROCHLOROTHIAZIDE 25 MG TABLET (FP) PO SCH (09:24)
[2022-02-27] MEDS: TAMSULOSIN HCL 0.4 MG CAP PO SCH (09:24)
[2022-02-27] MEDS: NICOTINE 7 MG/24 HOURS TOPICAL PATCH TD SCH (09:25)
[2022-02-27] MEDS: PRENATAL VITAMINS W/ FOLIC ACID TABLET (FP) PO SCH (09:25)
[2022-02-27] MEDS: amLODIPine BESYLATE 10 MG TABLET (FP) PO SCH (09:25)
[2022-02-27] MEDS: ESCITALOPRAM OXALATE 10 MG TABLET PO SCH (09:25)
[2022-02-27] MEDS: LISINOPRIL 20 MG TABLET PO SCH (09:25)
[2022-02-27] MEDS: THIAMINE HCL 100 MG TABLET (FP) PO SCH (21:30)
[2022-02-27] MEDS: MONTELUKAST NA 10 MG TABLET PO SCH (21:30)
[2022-02-27] MEDS: MELATONIN 5 MG TABLETS PO SCH (21:30)
[2022-02-27] MEDS: IBUPROFEN 400 MG TABLET (FP) PO PRN (21:30)
[2022-02-27] MEDS: P-EPHED 60MG/TRIPROLIDI 2.5MG TABLET PO PRN (21:31)
[2022-02-28] MEDS: amLODIPine BESYLATE 10 MG TABLET (FP) PO SCH (10:19)
[2022-02-28] MEDS: TAMSULOSIN HCL 0.4 MG CAP PO SCH (10:19)
[2022-02-28] MEDS: ESCITALOPRAM OXALATE 10 MG TABLET PO SCH (10:19)
[2022-02-28] MEDS: HYDROCHLOROTHIAZIDE 25 MG TABLET (FP) PO SCH (10:19)
[2022-02-28] MEDS: PRENATAL VITAMINS W/ FOLIC ACID TABLET (FP) PO SCH (10:19)
[2022-02-28] MEDS: LISINOPRIL 20 MG TABLET PO SCH (10:19)
[2022-02-28] MEDS: NICOTINE 7 MG/24 HOURS TOPICAL PATCH TD SCH (10:20)
[2022-02-28] MEDS: MELATONIN 5 MG TABLETS PO SCH (21:38)
[2022-02-28] MEDS: THIAMINE HCL 100 MG TABLET (FP) PO SCH (21:38)
[2022-02-28] MEDS: MONTELUKAST NA 10 MG TABLET PO SCH (21:38)
[2022-03-01] MEDS: ACETAMINOPHEN 325 MG TABLET (FP) PO PRN (00:48)
[2022-03-01] MEDS: TAMSULOSIN HCL 0.4 MG CAP PO SCH (07:32)
[2022-03-01] MEDS: PRENATAL VITAMINS W/ FOLIC ACID TABLET (FP) PO SCH (10:46)
[2022-03-01] MEDS: ESCITALOPRAM OXALATE 10 MG TABLET PO SCH (10:46)
[2022-03-01] MEDS: NICOTINE 7 MG/24 HOURS TOPICAL PATCH TD SCH (10:46)
[2022-03-01] MEDS: LISINOPRIL 20 MG TABLET PO SCH (10:46)
[2022-03-01] MEDS: amLODIPine BESYLATE 10 MG TABLET (FP) PO SCH (10:46)
[2022-03-01] MEDS: HYDROCHLOROTHIAZIDE 25 MG TABLET (FP) PO SCH (10:46)
[2022-03-01] MEDS: IBUPROFEN 400 MG TABLET (FP) PO PRN ×2 (10:48→21:08)
[2022-03-01] MEDS: MONTELUKAST NA 10 MG TABLET PO SCH (21:07)
[2022-03-01] MEDS: MELATONIN 5 MG TABLETS PO SCH (21:07)
[2022-03-01] MEDS: THIAMINE HCL 100 MG TABLET (FP) PO SCH (21:07)
[2022-03-02 06:42] VITALS: PULSE 75; TEMP 97.7
[2022-03-02] MEDS: LISINOPRIL 20 MG TABLET PO SCH (11:03)
[2022-03-02] MEDS: HYDROCHLOROTHIAZIDE 25 MG TABLET (FP) PO SCH (11:03)
[2022-03-02] MEDS: ESCITALOPRAM OXALATE 10 MG TABLET PO SCH (11:04)
[2022-03-02] MEDS: PRENATAL VITAMINS W/ FOLIC ACID TABLET (FP) PO SCH (11:04)
[2022-03-02] MEDS: amLODIPine BESYLATE 10 MG TABLET (FP) PO SCH (11:04)
[2022-03-02] MEDS: NICOTINE 7 MG/24 HOURS TOPICAL PATCH TD SCH (11:04)
[2022-03-02] MEDS: TAMSULOSIN HCL 0.4 MG CAP PO SCH (11:13)
[2022-03-02] MEDS: THIAMINE HCL 100 MG TABLET (FP) PO SCH (21:17)
[2022-03-02] MEDS: MONTELUKAST NA 10 MG TABLET PO SCH (21:17)
[2022-03-02] MEDS: MELATONIN 5 MG TABLETS PO SCH (21:17)
[2022-03-03] MEDS: PRENATAL VITAMINS W/ FOLIC ACID TABLET (FP) PO SCH (10:36)
[2022-03-03] MEDS: ESCITALOPRAM OXALATE 10 MG TABLET PO SCH (10:36)
[2022-03-03] MEDS: amLODIPine BESYLATE 10 MG TABLET (FP) PO SCH (10:36)
[2022-03-03] MEDS: LISINOPRIL 20 MG TABLET PO SCH (10:36)
[2022-03-03] MEDS: HYDROCHLOROTHIAZIDE 25 MG TABLET (FP) PO SCH (10:36)
[2022-03-03] MEDS: NICOTINE 7 MG/24 HOURS TOPICAL PATCH TD SCH (10:37)
[2022-03-03] MEDS: TAMSULOSIN HCL 0.4 MG CAP PO SCH (10:37)
[2022-03-03] MEDS ORDERED: METHYL SALICYLATE/MENTHOL OINT 30 GM TUBE TP PRN (15:08)
[2022-03-03] MEDS ORDERED: IBUPROFEN 600 MG TABLET (FP) PO PRN (15:08)
[2022-03-03] MEDS: MONTELUKAST NA 10 MG TABLET PO SCH (21:12)
[2022-03-03] MEDS: MELATONIN 5 MG TABLETS PO SCH (21:12)
[2022-03-03] MEDS: THIAMINE HCL 100 MG TABLET (FP) PO SCH (21:12)
[2022-03-04 07:12] VITALS: BP 140/87
[2022-03-04] MEDS: NICOTINE 7 MG/24 HOURS TOPICAL PATCH TD SCH (09:18)
[2022-03-04] MEDS: PRENATAL VITAMINS W/ FOLIC ACID TABLET (FP) PO SCH (09:18)
[2022-03-04] MEDS: ESCITALOPRAM OXALATE 10 MG TABLET PO SCH (09:19)
[2022-03-04] MEDS: TAMSULOSIN HCL 0.4 MG CAP PO SCH (09:19)
[2022-03-04] MEDS: amLODIPine BESYLATE 10 MG TABLET (FP) PO SCH (09:19)
[2022-03-04] MEDS: LISINOPRIL 20 MG TABLET PO SCH (09:19)
== END 2022-03-04 09:42 | disposition home or self-care (01) | DRG 772 ==
LOC: YASAS 11:08 → Y3W 15:36
PROVIDERS: ADMIT Allergy & Immunology; ATTEND Psychiatry & Neurology Pain Medicine
PROC: HZ42ZZZ Group Counseling for Substance Abuse Treatment, Cognitive-Behavioral (ICD-10-PCS; principal; 2022-02-22)
DX: F10.20 Alcohol dependence, uncomplicated (principal); F14.20 Cocaine dependence, uncomplicated; F17.210 Nicotine dependence, cigarettes, uncomplicated; F41.9 Anxiety disorder, unspecified; F32.A Depression, unspecified; I10 Essential (primary) hypertension; J44.9 Chronic obstructive pulmonary disease, unspecified; K21.9 Gastro-esophageal reflux disease without esophagitis; M15.9 Polyosteoarthritis, unspecified; M54.50 Low back pain, unspecified; G89.29 Other chronic pain; N40.0 Benign prostatic hyperplasia without lower urinary tract symptoms
CPT/HCPCS: 36415; 80053; 81003; 85027; 86780; 86803; 90677; C9803-CS; G0008; Q2036; U0003; U0005

== ENCOUNTER 2022-07-19 12:22 | Inpatient (IN) | payer OTHER ==
[2022-07-19 12:52] VITALS: BMI 25.0
[2022-07-19] MEDS ORDERED: hydrOXYzine PAMOATE 25 MG CAPSULE (FP) PO PRN (13:02)
[2022-07-19] MEDS ORDERED: MAG HYDROX/AL HYDROX/SIMETH 30 ML UNIT-DOSE CUP PO PRN (13:02)
[2022-07-19] MEDS ORDERED: IBUPROFEN 600 MG TABLET (FP) PO PRN (13:02)
[2022-07-19] MEDS ORDERED: NICOTINE 10 MG CARTRIDGE (INHALER) IH PRN (13:02)
[2022-07-19] MEDS ORDERED: ACETAMINOPHEN 325 MG TABLET (FP) PO PRN (13:02)
[2022-07-19] MEDS ORDERED: BENZONATATE 200 MG CAPSULE PO PRN (13:02)
[2022-07-19] MEDS ORDERED: MAGNESIUM HYDROX 2400MG/30ML ORAL SUSPENSION 30 ML CUP PO PRN (13:02)
[2022-07-19] MEDS ORDERED: guaiFENesin 600 MG TABLET.ER (FP) PO PRN (13:02)
[2022-07-19] MEDS ORDERED: BENZOCAINE/MENTHOL (CHLORASEPTIC ) LOZENGE MM PRN (13:02)
[2022-07-19] MEDS ORDERED: NICOTINE 7 MG/24 HOURS TOPICAL PATCH TD PRN (13:02)
[2022-07-19] MEDS ORDERED: IBUPROFEN 400 MG TABLET (FP) PO PRN (13:02)
[2022-07-19] MEDS ORDERED: LOPERAMIDE HCL 2 MG CAPSULE PO PRN (13:02)
[2022-07-19] MEDS ORDERED: POLYETHYLENE GLYCOL (HEALTHYLAX) 3350 17 GM PACKET PO PRN (13:02)
[2022-07-19 14:58] LABS: HEMATOCRIT 40.1 % (35.4-49); HEMOGLOBIN 13.7 GM/dL (11.7-16.9); MCH 29.9 pg (25.7-33.7); MEAN CELL VOLUME 87.9 fl (80-96); MEAN PLT VOLUME 6.8 fl (7.5-11.1); PLATELET COUNT 127 10^3/uL (134-434); RBC 4.57 M/mm3 (4.00-5.60); RDW 17.2 % (11.9-15.9); WHITE BLOOD COUNT 3.7 K/mm3 (4.0-10.0)
[2022-07-19 15:02] LABS: CALCIUM 8.8 mg/dL (8.5-10.1)
[2022-07-19 15:03] LABS: ALBUMIN 3.2 g/dl (3.4-5.0); BLOOD UREA NITROGEN 7.4 mg/dL (7-18)
[2022-07-19 15:08] LABS: BILIRUBIN,TOTAL 0.6 mg/dL (0.2-1); TOT PROT 6.1 g/dl (6.4-8.2)
[2022-07-19 15:33] LABS: SYPHILIS W/ RPR CONF NON-REACTIVE (NONREACTIVE)
[2022-07-19] MEDS: BUDESONIDE/FORMETEROL FUMARATE 160/4.5 mcg INHALER IH SCH (21:26)
[2022-07-19] MEDS: THIAMINE HCL 100 MG TABLET (FP) PO SCH (21:26)
[2022-07-19] MEDS: MELATONIN 5 MG TABLETS PO SCH (21:26)
[2022-07-19] MEDS: FAMOTIDINE 20 MG TABLET PO SCH (21:26)
[2022-07-20] MEDS: FAMOTIDINE 20 MG TABLET PO SCH ×2 (10:06→21:25)
[2022-07-20] MEDS: TAMSULOSIN HCL 0.4 MG CAP PO SCH (10:07)
[2022-07-20] MEDS: MONTELUKAST NA 10 MG TABLET PO SCH (10:07)
[2022-07-20] MEDS: PRENATAL VITAMINS W/ FOLIC ACID TABLET (FP) PO SCH (10:07)
[2022-07-20] MEDS: BUDESONIDE/FORMETEROL FUMARATE 160/4.5 mcg INHALER IH SCH ×2 (10:08→21:24)
[2022-07-20] MEDS: ESCITALOPRAM OXALATE 10 MG TABLET PO SCH (11:58)
[2022-07-20 15:19] LABS: PH,URINE 6.5 (5.0-8.0); URINE APPEARANCE CLEAR; URINE BILIRUBIN NEGATIVE (NEGATIVE); URINE COLOR YELLOW; URINE GLUCOSE (UA) NEGATIVE (NEGATIVE); URINE KETONE NEGATIVE (NEGATIVE); URINE LEUK ESTERASE NEGATIVE (NEGATIVE); URINE NITRITE NEGATIVE (NEGATIVE); URINE PROTEIN NEGATIVE (NEGATIVE); URINE UROBILINOGEN 0.2 mg/dL (0.2-1.0)
[2022-07-20] MEDS: MELATONIN 5 MG TABLETS PO SCH (21:25)
[2022-07-20] MEDS: THIAMINE HCL 100 MG TABLET (FP) PO SCH (21:25)
[2022-07-21] MEDS: MONTELUKAST NA 10 MG TABLET PO SCH (09:47)
[2022-07-21] MEDS: PRENATAL VITAMINS W/ FOLIC ACID TABLET (FP) PO SCH (09:47)
[2022-07-21] MEDS: TAMSULOSIN HCL 0.4 MG CAP PO SCH (09:47)
[2022-07-21] MEDS: BUDESONIDE/FORMETEROL FUMARATE 160/4.5 mcg INHALER IH SCH ×2 (09:47→21:43)
[2022-07-21] MEDS: ESCITALOPRAM OXALATE 10 MG TABLET PO SCH (09:48)
[2022-07-21] MEDS: FAMOTIDINE 20 MG TABLET PO SCH ×2 (09:48→21:43)
[2022-07-21 12:22] LABS: HIV INTERPRETATION NEGATIVE (NEGATIVE)
[2022-07-21] MEDS: THIAMINE HCL 100 MG TABLET (FP) PO SCH (21:43)
[2022-07-21] MEDS: MELATONIN 5 MG TABLETS PO SCH (21:44)
[2022-07-22] MEDS: BUDESONIDE/FORMETEROL FUMARATE 160/4.5 mcg INHALER IH SCH ×2 (10:01→21:41)
[2022-07-22] MEDS: FAMOTIDINE 20 MG TABLET PO SCH ×2 (10:01→21:41)
[2022-07-22] MEDS: ESCITALOPRAM OXALATE 10 MG TABLET PO SCH (10:01)
[2022-07-22] MEDS: MONTELUKAST NA 10 MG TABLET PO SCH (10:01)
[2022-07-22] MEDS: PRENATAL VITAMINS W/ FOLIC ACID TABLET (FP) PO SCH (10:01)
[2022-07-22] MEDS: TAMSULOSIN HCL 0.4 MG CAP PO SCH (10:01)
[2022-07-22] MEDS: LISINOPRIL 20 MG TABLET PO SCH (11:43)
[2022-07-22] MEDS: CHOLECALCIFEROL (VIT D3) 1,000 UNIT (25 MCG) TABLET PO SCH (11:45)
[2022-07-22] MEDS: amLODIPine BESYLATE 10 MG TABLET (FP) PO SCH (11:45)
[2022-07-22] MEDS: MELATONIN 5 MG TABLETS PO SCH (21:41)
[2022-07-22] MEDS: THIAMINE HCL 100 MG TABLET (FP) PO SCH (21:41)
[2022-07-23] MEDS: PRENATAL VITAMINS W/ FOLIC ACID TABLET (FP) PO SCH (09:52)
[2022-07-23] MEDS: amLODIPine BESYLATE 10 MG TABLET (FP) PO SCH (09:54)
[2022-07-23] MEDS: TAMSULOSIN HCL 0.4 MG CAP PO SCH (09:54)
[2022-07-23] MEDS: BUDESONIDE/FORMETEROL FUMARATE 160/4.5 mcg INHALER IH SCH ×2 (09:54→21:36)
[2022-07-23] MEDS: FAMOTIDINE 20 MG TABLET PO SCH ×2 (09:55→21:36)
[2022-07-23] MEDS: LISINOPRIL 20 MG TABLET PO SCH (09:55)
[2022-07-23] MEDS: CHOLECALCIFEROL (VIT D3) 1,000 UNIT (25 MCG) TABLET PO SCH (09:55)
[2022-07-23] MEDS: ESCITALOPRAM OXALATE 10 MG TABLET PO SCH (09:55)
[2022-07-23] MEDS: MONTELUKAST NA 10 MG TABLET PO SCH (09:55)
[2022-07-23] MEDS: MELATONIN 5 MG TABLETS PO SCH (21:36)
[2022-07-23] MEDS: THIAMINE HCL 100 MG TABLET (FP) PO SCH (21:36)
[2022-07-24] MEDS: TAMSULOSIN HCL 0.4 MG CAP PO SCH (10:03)
[2022-07-24] MEDS: PRENATAL VITAMINS W/ FOLIC ACID TABLET (FP) PO SCH (10:03)
[2022-07-24] MEDS: LISINOPRIL 20 MG TABLET PO SCH (10:03)
[2022-07-24] MEDS: ESCITALOPRAM OXALATE 10 MG TABLET PO SCH (10:03)
[2022-07-24] MEDS: CHOLECALCIFEROL (VIT D3) 1,000 UNIT (25 MCG) TABLET PO SCH (10:03)
[2022-07-24] MEDS: FAMOTIDINE 20 MG TABLET PO SCH ×2 (10:03→21:37)
[2022-07-24] MEDS: amLODIPine BESYLATE 10 MG TABLET (FP) PO SCH (10:03)
[2022-07-24] MEDS: MONTELUKAST NA 10 MG TABLET PO SCH (10:03)
[2022-07-24] MEDS: BUDESONIDE/FORMETEROL FUMARATE 160/4.5 mcg INHALER IH SCH ×2 (10:04→21:37)
[2022-07-24] MEDS: MELATONIN 5 MG TABLETS PO SCH (21:37)
[2022-07-24] MEDS: THIAMINE HCL 100 MG TABLET (FP) PO SCH (21:37)
[2022-07-25] MEDS: TAMSULOSIN HCL 0.4 MG CAP PO SCH (09:59)
[2022-07-25] MEDS: BUDESONIDE/FORMETEROL FUMARATE 160/4.5 mcg INHALER IH SCH ×2 (09:59→21:43)
[2022-07-25] MEDS: ESCITALOPRAM OXALATE 10 MG TABLET PO SCH (09:59)
[2022-07-25] MEDS: FAMOTIDINE 20 MG TABLET PO SCH ×2 (10:00→21:43)
[2022-07-25] MEDS: PRENATAL VITAMINS W/ FOLIC ACID TABLET (FP) PO SCH (10:00)
[2022-07-25] MEDS: MONTELUKAST NA 10 MG TABLET PO SCH (10:00)
[2022-07-25] MEDS: amLODIPine BESYLATE 10 MG TABLET (FP) PO SCH (10:00)
[2022-07-25] MEDS: LISINOPRIL 20 MG TABLET PO SCH (10:00)
[2022-07-25] MEDS: CHOLECALCIFEROL (VIT D3) 1,000 UNIT (25 MCG) TABLET PO SCH (10:40)
[2022-07-25] MEDS: THIAMINE HCL 100 MG TABLET (FP) PO SCH (21:43)
[2022-07-25] MEDS: MELATONIN 5 MG TABLETS PO SCH (21:43)
[2022-07-26] MEDS: TAMSULOSIN HCL 0.4 MG CAP PO SCH (07:56)
[2022-07-26] MEDS: LISINOPRIL 20 MG TABLET PO SCH (10:02)
[2022-07-26] MEDS: amLODIPine BESYLATE 10 MG TABLET (FP) PO SCH (10:02)
[2022-07-26] MEDS: FAMOTIDINE 20 MG TABLET PO SCH ×2 (10:02→21:18)
[2022-07-26] MEDS: ESCITALOPRAM OXALATE 10 MG TABLET PO SCH (10:03)
[2022-07-26] MEDS: PRENATAL VITAMINS W/ FOLIC ACID TABLET (FP) PO SCH (10:03)
[2022-07-26] MEDS: MONTELUKAST NA 10 MG TABLET PO SCH (10:04)
[2022-07-26] MEDS: BUDESONIDE/FORMETEROL FUMARATE 160/4.5 mcg INHALER IH SCH ×2 (10:04→21:18)
[2022-07-26] MEDS: CHOLECALCIFEROL (VIT D3) 1,000 UNIT (25 MCG) TABLET PO SCH (10:05)
[2022-07-26] MEDS: THIAMINE HCL 100 MG TABLET (FP) PO SCH (21:18)
[2022-07-26] MEDS: MELATONIN 5 MG TABLETS PO SCH (21:19)
[2022-07-27] MEDS: TAMSULOSIN HCL 0.4 MG CAP PO SCH (09:02)
[2022-07-27] MEDS: ALBUTEROL SO4 HFA INHALER IH PRN (09:02)
[2022-07-27] MEDS: PRENATAL VITAMINS W/ FOLIC ACID TABLET (FP) PO SCH (09:57)
[2022-07-27] MEDS: BUDESONIDE/FORMETEROL FUMARATE 160/4.5 mcg INHALER IH SCH ×2 (09:57→21:28)
[2022-07-27] MEDS: amLODIPine BESYLATE 10 MG TABLET (FP) PO SCH (09:58)
[2022-07-27] MEDS: CHOLECALCIFEROL (VIT D3) 1,000 UNIT (25 MCG) TABLET PO SCH (09:58)
[2022-07-27] MEDS: MONTELUKAST NA 10 MG TABLET PO SCH (09:58)
[2022-07-27] MEDS: LISINOPRIL 20 MG TABLET PO SCH (09:58)
[2022-07-27] MEDS: ESCITALOPRAM OXALATE 10 MG TABLET PO SCH (09:58)
[2022-07-27] MEDS: FAMOTIDINE 20 MG TABLET PO SCH ×2 (09:59→21:29)
[2022-07-27] MEDS: THIAMINE HCL 100 MG TABLET (FP) PO SCH (21:29)
[2022-07-27] MEDS: MELATONIN 5 MG TABLETS PO SCH (21:29)
[2022-07-28 07:33] VITALS: RESP 18
[2022-07-28] MEDS: BUDESONIDE/FORMETEROL FUMARATE 160/4.5 mcg INHALER IH SCH ×2 (10:11→21:18)
[2022-07-28] MEDS: ESCITALOPRAM OXALATE 10 MG TABLET PO SCH (10:11)
[2022-07-28] MEDS: MONTELUKAST NA 10 MG TABLET PO SCH (10:11)
[2022-07-28] MEDS: PRENATAL VITAMINS W/ FOLIC ACID TABLET (FP) PO SCH (10:11)
[2022-07-28] MEDS: TAMSULOSIN HCL 0.4 MG CAP PO SCH (10:12)
[2022-07-28] MEDS: FAMOTIDINE 20 MG TABLET PO SCH ×2 (10:12→21:18)
[2022-07-28] MEDS: LISINOPRIL 20 MG TABLET PO SCH (10:12)
[2022-07-28] MEDS: amLODIPine BESYLATE 10 MG TABLET (FP) PO SCH (10:12)
[2022-07-28] MEDS: CHOLECALCIFEROL (VIT D3) 1,000 UNIT (25 MCG) TABLET PO SCH (10:13)
[2022-07-28] MEDS: THIAMINE HCL 100 MG TABLET (FP) PO SCH (21:18)
[2022-07-28] MEDS: MELATONIN 5 MG TABLETS PO SCH (21:18)
[2022-07-29] MEDS: TAMSULOSIN HCL 0.4 MG CAP PO SCH (09:30)
[2022-07-29] MEDS: ESCITALOPRAM OXALATE 10 MG TABLET PO SCH (09:47)
[2022-07-29] MEDS: PRENATAL VITAMINS W/ FOLIC ACID TABLET (FP) PO SCH (09:47)
[2022-07-29] MEDS: FAMOTIDINE 20 MG TABLET PO SCH ×2 (09:47→21:19)
[2022-07-29] MEDS: amLODIPine BESYLATE 10 MG TABLET (FP) PO SCH (09:47)
[2022-07-29] MEDS: MONTELUKAST NA 10 MG TABLET PO SCH (09:48)
[2022-07-29] MEDS: BUDESONIDE/FORMETEROL FUMARATE 160/4.5 mcg INHALER IH SCH ×2 (09:48→21:19)
[2022-07-29] MEDS: CHOLECALCIFEROL (VIT D3) 1,000 UNIT (25 MCG) TABLET PO SCH (09:48)
[2022-07-29] MEDS: LISINOPRIL 20 MG TABLET PO SCH (09:48)
[2022-07-29] MEDS: THIAMINE HCL 100 MG TABLET (FP) PO SCH (21:19)
[2022-07-29] MEDS: MELATONIN 5 MG TABLETS PO SCH (21:19)
[2022-07-30] MEDS: PRENATAL VITAMINS W/ FOLIC ACID TABLET (FP) PO SCH (10:00)
[2022-07-30] MEDS: MONTELUKAST NA 10 MG TABLET PO SCH (10:01)
[2022-07-30] MEDS: BUDESONIDE/FORMETEROL FUMARATE 160/4.5 mcg INHALER IH SCH ×2 (10:01→21:25)
[2022-07-30] MEDS: LISINOPRIL 20 MG TABLET PO SCH (10:01)
[2022-07-30] MEDS: amLODIPine BESYLATE 10 MG TABLET (FP) PO SCH (10:01)
[2022-07-30] MEDS: FAMOTIDINE 20 MG TABLET PO SCH ×2 (10:01→21:24)
[2022-07-30] MEDS: ESCITALOPRAM OXALATE 10 MG TABLET PO SCH (10:01)
[2022-07-30] MEDS: TAMSULOSIN HCL 0.4 MG CAP PO SCH (10:01)
[2022-07-30] MEDS: CHOLECALCIFEROL (VIT D3) 1,000 UNIT (25 MCG) TABLET PO SCH (10:02)
[2022-07-30] MEDS: MELATONIN 5 MG TABLETS PO SCH (21:24)
[2022-07-30] MEDS: THIAMINE HCL 100 MG TABLET (FP) PO SCH (21:24)
[2022-07-30] MEDS: ALBUTEROL SO4 HFA INHALER IH PRN (21:24)
[2022-07-31] MEDS: BUDESONIDE/FORMETEROL FUMARATE 160/4.5 mcg INHALER IH SCH ×2 (10:10→21:16)
[2022-07-31] MEDS: TAMSULOSIN HCL 0.4 MG CAP PO SCH (10:11)
[2022-07-31] MEDS: amLODIPine BESYLATE 10 MG TABLET (FP) PO SCH (10:12)
[2022-07-31] MEDS: PRENATAL VITAMINS W/ FOLIC ACID TABLET (FP) PO SCH (10:12)
[2022-07-31] MEDS: LISINOPRIL 20 MG TABLET PO SCH (10:12)
[2022-07-31] MEDS: MONTELUKAST NA 10 MG TABLET PO SCH (10:12)
[2022-07-31] MEDS: FAMOTIDINE 20 MG TABLET PO SCH ×2 (10:12→21:15)
[2022-07-31] MEDS: ESCITALOPRAM OXALATE 10 MG TABLET PO SCH (10:12)
[2022-07-31] MEDS: CHOLECALCIFEROL (VIT D3) 1,000 UNIT (25 MCG) TABLET PO SCH (10:13)
[2022-07-31] MEDS: THIAMINE HCL 100 MG TABLET (FP) PO SCH (21:15)
[2022-07-31] MEDS: MELATONIN 5 MG TABLETS PO SCH (21:16)
[2022-08-01] MEDS: PRENATAL VITAMINS W/ FOLIC ACID TABLET (FP) PO SCH (09:58)
[2022-08-01] MEDS: ESCITALOPRAM OXALATE 10 MG TABLET PO SCH (09:59)
[2022-08-01] MEDS: MONTELUKAST NA 10 MG TABLET PO SCH (09:59)
[2022-08-01] MEDS: amLODIPine BESYLATE 10 MG TABLET (FP) PO SCH (09:59)
[2022-08-01] MEDS: TAMSULOSIN HCL 0.4 MG CAP PO SCH (09:59)
[2022-08-01] MEDS: BUDESONIDE/FORMETEROL FUMARATE 160/4.5 mcg INHALER IH SCH ×2 (09:59→21:16)
[2022-08-01] MEDS: FAMOTIDINE 20 MG TABLET PO SCH ×2 (09:59→21:15)
[2022-08-01] MEDS: LISINOPRIL 20 MG TABLET PO SCH (09:59)
[2022-08-01] MEDS: CHOLECALCIFEROL (VIT D3) 1,000 UNIT (25 MCG) TABLET PO SCH (10:02)
[2022-08-01] MEDS: MELATONIN 5 MG TABLETS PO SCH (21:15)
[2022-08-01] MEDS: THIAMINE HCL 100 MG TABLET (FP) PO SCH (21:16)
[2022-08-02] MEDS: TAMSULOSIN HCL 0.4 MG CAP PO SCH (09:25)
[2022-08-02] MEDS: ESCITALOPRAM OXALATE 10 MG TABLET PO SCH (09:25)
[2022-08-02] MEDS: amLODIPine BESYLATE 10 MG TABLET (FP) PO SCH (09:26)
[2022-08-02] MEDS: FAMOTIDINE 20 MG TABLET PO SCH ×2 (09:26→21:37)
[2022-08-02] MEDS: PRENATAL VITAMINS W/ FOLIC ACID TABLET (FP) PO SCH (09:26)
[2022-08-02] MEDS: LISINOPRIL 20 MG TABLET PO SCH (09:26)
[2022-08-02] MEDS: BUDESONIDE/FORMETEROL FUMARATE 160/4.5 mcg INHALER IH SCH ×2 (09:27→21:37)
[2022-08-02] MEDS: MONTELUKAST NA 10 MG TABLET PO SCH (09:27)
[2022-08-02] MEDS: CHOLECALCIFEROL (VIT D3) 1,000 UNIT (25 MCG) TABLET PO SCH (09:28)
[2022-08-02] MEDS: SALICYLIC ACID 1 APPLIC BOTTLE TP SCH ×2 (12:26→21:36)
[2022-08-02] MEDS: MELATONIN 5 MG TABLETS PO SCH (21:36)
[2022-08-02] MEDS: THIAMINE HCL 100 MG TABLET (FP) PO SCH (21:37)
[2022-08-03] MEDS: MONTELUKAST NA 10 MG TABLET PO SCH (10:05)
[2022-08-03] MEDS: amLODIPine BESYLATE 10 MG TABLET (FP) PO SCH (10:05)
[2022-08-03] MEDS: FAMOTIDINE 20 MG TABLET PO SCH ×2 (10:05→21:27)
[2022-08-03] MEDS: LISINOPRIL 20 MG TABLET PO SCH (10:05)
[2022-08-03] MEDS: BUDESONIDE/FORMETEROL FUMARATE 160/4.5 mcg INHALER IH SCH ×2 (10:05→21:28)
[2022-08-03] MEDS: ESCITALOPRAM OXALATE 10 MG TABLET PO SCH (10:05)
[2022-08-03] MEDS: TAMSULOSIN HCL 0.4 MG CAP PO SCH (10:05)
[2022-08-03] MEDS: PRENATAL VITAMINS W/ FOLIC ACID TABLET (FP) PO SCH (10:05)
[2022-08-03] MEDS: SALICYLIC ACID 1 APPLIC BOTTLE TP SCH ×2 (10:06→21:28)
[2022-08-03] MEDS: CHOLECALCIFEROL (VIT D3) 1,000 UNIT (25 MCG) TABLET PO SCH (10:07)
[2022-08-03] MEDS: NICOTINE POLACRILEX 2 MG GUM BC PRN ×2 (17:52→20:14)
[2022-08-03] MEDS: THIAMINE HCL 100 MG TABLET (FP) PO SCH (21:27)
[2022-08-03] MEDS: MELATONIN 5 MG TABLETS PO SCH (21:28)
[2022-08-04] MEDS: NICOTINE POLACRILEX 2 MG GUM BC PRN ×2 (08:05→10:11)
[2022-08-04] MEDS: amLODIPine BESYLATE 10 MG TABLET (FP) PO SCH (10:07)
[2022-08-04] MEDS: CHOLECALCIFEROL (VIT D3) 1,000 UNIT (25 MCG) TABLET PO SCH (10:07)
[2022-08-04] MEDS: LISINOPRIL 20 MG TABLET PO SCH (10:07)
[2022-08-04] MEDS: FAMOTIDINE 20 MG TABLET PO SCH ×2 (10:07→21:30)
[2022-08-04] MEDS: TAMSULOSIN HCL 0.4 MG CAP PO SCH (10:08)
[2022-08-04] MEDS: SALICYLIC ACID 1 APPLIC BOTTLE TP SCH ×2 (10:08→21:31)
[2022-08-04] MEDS: BUDESONIDE/FORMETEROL FUMARATE 160/4.5 mcg INHALER IH SCH ×2 (10:08→21:31)
[2022-08-04] MEDS: MONTELUKAST NA 10 MG TABLET PO SCH (10:08)
[2022-08-04] MEDS: PRENATAL VITAMINS W/ FOLIC ACID TABLET (FP) PO SCH (10:08)
[2022-08-04] MEDS: ESCITALOPRAM OXALATE 10 MG TABLET PO SCH (10:08)
[2022-08-04] MEDS: THIAMINE HCL 100 MG TABLET (FP) PO SCH (21:30)
[2022-08-04] MEDS: MELATONIN 5 MG TABLETS PO SCH (21:30)
[2022-08-05] MEDS: TAMSULOSIN HCL 0.4 MG CAP PO SCH (08:45)
[2022-08-05] MEDS: PRENATAL VITAMINS W/ FOLIC ACID TABLET (FP) PO SCH (10:00)
[2022-08-05] MEDS: SALICYLIC ACID 1 APPLIC BOTTLE TP SCH ×2 (10:01→21:20)
[2022-08-05] MEDS: FAMOTIDINE 20 MG TABLET PO SCH ×2 (10:01→21:19)
[2022-08-05] MEDS: ESCITALOPRAM OXALATE 10 MG TABLET PO SCH (10:01)
[2022-08-05] MEDS: MONTELUKAST NA 10 MG TABLET PO SCH (10:01)
[2022-08-05] MEDS: amLODIPine BESYLATE 10 MG TABLET (FP) PO SCH (10:01)
[2022-08-05] MEDS: BUDESONIDE/FORMETEROL FUMARATE 160/4.5 mcg INHALER IH SCH ×2 (10:01→21:47)
[2022-08-05] MEDS: LISINOPRIL 20 MG TABLET PO SCH (10:01)
[2022-08-05] MEDS: CHOLECALCIFEROL (VIT D3) 1,000 UNIT (25 MCG) TABLET PO SCH (10:02)
[2022-08-05] MEDS: THIAMINE HCL 100 MG TABLET (FP) PO SCH (21:19)
[2022-08-05] MEDS: MELATONIN 5 MG TABLETS PO SCH (21:19)
[2022-08-06] MEDS: TAMSULOSIN HCL 0.4 MG CAP PO SCH (09:05)
[2022-08-06] MEDS: LISINOPRIL 20 MG TABLET PO SCH (10:05)
[2022-08-06] MEDS: PRENATAL VITAMINS W/ FOLIC ACID TABLET (FP) PO SCH (10:05)
[2022-08-06] MEDS: BUDESONIDE/FORMETEROL FUMARATE 160/4.5 mcg INHALER IH SCH ×2 (10:05→21:35)
[2022-08-06] MEDS: SALICYLIC ACID 1 APPLIC BOTTLE TP SCH ×2 (10:06→23:20)
[2022-08-06] MEDS: FAMOTIDINE 20 MG TABLET PO SCH ×2 (10:06→21:35)
[2022-08-06] MEDS: MONTELUKAST NA 10 MG TABLET PO SCH (10:06)
[2022-08-06] MEDS: ESCITALOPRAM OXALATE 10 MG TABLET PO SCH (10:06)
[2022-08-06] MEDS: amLODIPine BESYLATE 10 MG TABLET (FP) PO SCH (10:06)
[2022-08-06] MEDS: CHOLECALCIFEROL (VIT D3) 1,000 UNIT (25 MCG) TABLET PO SCH (10:09)
[2022-08-06] MEDS ORDERED: COLLOIDAL OATMEAL 1 BAR EACH TP PRN (10:57)
[2022-08-06] MEDS ORDERED: diphenhydrAMINE HCL 25 MG CAPSULE (FP) PO ONE (10:57)
[2022-08-06] MEDS: MELATONIN 5 MG TABLETS PO SCH (21:35)
[2022-08-06] MEDS: THIAMINE HCL 100 MG TABLET (FP) PO SCH (21:35)
[2022-08-07] MEDS: PRENATAL VITAMINS W/ FOLIC ACID TABLET (FP) PO SCH (09:56)
[2022-08-07] MEDS: LISINOPRIL 20 MG TABLET PO SCH (09:57)
[2022-08-07] MEDS: TAMSULOSIN HCL 0.4 MG CAP PO SCH (09:57)
[2022-08-07] MEDS: BUDESONIDE/FORMETEROL FUMARATE 160/4.5 mcg INHALER IH SCH ×2 (09:57→21:36)
[2022-08-07] MEDS: FAMOTIDINE 20 MG TABLET PO SCH ×2 (09:58→21:36)
[2022-08-07] MEDS: ESCITALOPRAM OXALATE 10 MG TABLET PO SCH (09:58)
[2022-08-07] MEDS: MONTELUKAST NA 10 MG TABLET PO SCH (09:58)
[2022-08-07] MEDS: amLODIPine BESYLATE 10 MG TABLET (FP) PO SCH (09:58)
[2022-08-07] MEDS: SALICYLIC ACID 1 APPLIC BOTTLE TP SCH ×2 (09:59→21:37)
[2022-08-07] MEDS: CHOLECALCIFEROL (VIT D3) 1,000 UNIT (25 MCG) TABLET PO SCH (09:59)
[2022-08-07] MEDS: MELATONIN 5 MG TABLETS PO SCH (21:36)
[2022-08-07] MEDS: THIAMINE HCL 100 MG TABLET (FP) PO SCH (21:36)
[2022-08-08] MEDS ORDERED: diphenhydrAMINE HCL 25 MG CAPSULE (FP) PO ONE (08:59)
[2022-08-08] MEDS: PRENATAL VITAMINS W/ FOLIC ACID TABLET (FP) PO SCH (09:18)
[2022-08-08] MEDS: BUDESONIDE/FORMETEROL FUMARATE 160/4.5 mcg INHALER IH SCH ×2 (09:18→21:57)
[2022-08-08] MEDS: TAMSULOSIN HCL 0.4 MG CAP PO SCH (09:18)
[2022-08-08] MEDS: LISINOPRIL 20 MG TABLET PO SCH (09:19)
[2022-08-08] MEDS: amLODIPine BESYLATE 10 MG TABLET (FP) PO SCH (09:19)
[2022-08-08] MEDS: FAMOTIDINE 20 MG TABLET PO SCH ×2 (09:19→21:36)
[2022-08-08] MEDS: ESCITALOPRAM OXALATE 10 MG TABLET PO SCH (09:19)
[2022-08-08] MEDS: MONTELUKAST NA 10 MG TABLET PO SCH (09:19)
[2022-08-08] MEDS: CHOLECALCIFEROL (VIT D3) 1,000 UNIT (25 MCG) TABLET PO SCH (09:20)
[2022-08-08] MEDS: SALICYLIC ACID 1 APPLIC BOTTLE TP SCH ×2 (09:20→21:57)
[2022-08-08] MEDS ORDERED: HYDROCORTISONE 1% TOPICAL CREAM 30 GM TUBE TP PRN (20:10)
[2022-08-08] MEDS: MELATONIN 5 MG TABLETS PO SCH (21:36)
[2022-08-08] MEDS: THIAMINE HCL 100 MG TABLET (FP) PO SCH (21:36)
[2022-08-09 06:51] VITALS: TEMP 97.7
[2022-08-09] MEDS: amLODIPine BESYLATE 10 MG TABLET (FP) PO SCH (09:07)
[2022-08-09] MEDS: ESCITALOPRAM OXALATE 10 MG TABLET PO SCH (09:07)
[2022-08-09] MEDS: MONTELUKAST NA 10 MG TABLET PO SCH (09:07)
[2022-08-09] MEDS: TAMSULOSIN HCL 0.4 MG CAP PO SCH (09:07)
[2022-08-09] MEDS: LISINOPRIL 20 MG TABLET PO SCH (09:07)
[2022-08-09] MEDS: FAMOTIDINE 20 MG TABLET PO SCH (09:08)
[2022-08-09] MEDS: BUDESONIDE/FORMETEROL FUMARATE 160/4.5 mcg INHALER IH SCH (09:08)
[2022-08-09] MEDS: SALICYLIC ACID 1 APPLIC BOTTLE TP SCH (09:08)
[2022-08-09] MEDS: CHOLECALCIFEROL (VIT D3) 1,000 UNIT (25 MCG) TABLET PO SCH (09:09)
[2022-08-09] MEDS: PRENATAL VITAMINS W/ FOLIC ACID TABLET (FP) PO SCH (09:09)
[2022-08-09 10:53] VITALS: BP 115/74; PULSE 77
== END 2022-08-09 09:20 | disposition home or self-care (01) | DRG 772 ==
LOC: YASAS 12:22 → Y5N 16:45
PROVIDERS: ADMIT Allergy & Immunology; ATTEND Psychiatry & Neurology Pain Medicine
PROC: HZ42ZZZ Group Counseling for Substance Abuse Treatment, Cognitive-Behavioral (ICD-10-PCS; principal; 2022-07-19)
DX: F10.20 Alcohol dependence, uncomplicated (principal); F14.20 Cocaine dependence, uncomplicated; F17.213 Nicotine dependence, cigarettes, with withdrawal; F32.A Depression, unspecified; F41.9 Anxiety disorder, unspecified; I10 Essential (primary) hypertension; J43.0 Unilateral pulmonary emphysema [MacLeod's syndrome]; J30.9 Allergic rhinitis, unspecified; K21.9 Gastro-esophageal reflux disease without esophagitis; N40.0 Benign prostatic hyperplasia without lower urinary tract symptoms; Z86.59 Personal history of other mental and behavioral disorders
CPT/HCPCS: 36415; 80053; 81003; 85027; 86695; 86696; 86780; 86803; 87389; 87491; 87591; 87661; 87811; C9803-CS; U0003; U0005

== ENCOUNTER 2022-11-17 15:07 | Inpatient (IN) | payer OTHER ==
[2022-11-17 15:32] VITALS: BMI 25.0
[2022-11-17] MEDS ORDERED: ALBUTEROL SO4 HFA INHALER IH PRN (19:38)
[2022-11-17] MEDS ORDERED: ACETAMINOPHEN 325 MG TABLET (FP) PO PRN (19:39)
[2022-11-17] MEDS ORDERED: IBUPROFEN 400 MG TABLET (FP) PO PRN (19:39)
[2022-11-17] MEDS ORDERED: BENZOCAINE/MENTHOL (CHLORASEPTIC ) LOZENGE MM PRN (19:39)
[2022-11-17] MEDS ORDERED: LOPERAMIDE HCL 2 MG CAPSULE PO PRN (19:39)
[2022-11-17] MEDS ORDERED: AMMONIUM LACTATE 12% LOTION 225 GM BOTTLE TP PRN (19:39)
[2022-11-17] MEDS ORDERED: MAGNESIUM HYDROX 2400MG/30ML ORAL SUSPENSION 30 ML CUP PO PRN (19:39)
[2022-11-17] MEDS ORDERED: BENZONATATE 200 MG CAPSULE PO PRN (19:39)
[2022-11-17] MEDS ORDERED: IBUPROFEN 600 MG TABLET (FP) PO PRN (19:39)
[2022-11-17] MEDS ORDERED: guaiFENesin 600 MG TABLET.ER (FP) PO PRN (19:39)
[2022-11-17] MEDS ORDERED: NICOTINE POLACRILEX 2 MG GUM BUC PRN (19:39)
[2022-11-17] MEDS ORDERED: P-EPHED 60MG/TRIPROLIDI 2.5MG TABLET PO PRN (19:39)
[2022-11-17] MEDS ORDERED: POLYETHYLENE GLYCOL (HEALTHYLAX) 3350 17 GM PACKET PO PRN (19:39)
[2022-11-17] MEDS ORDERED: MAG HYDROX/AL HYDROX/SIMETH 30 ML UNIT-DOSE CUP PO PRN (19:39)
[2022-11-17] MEDS ORDERED: guaiFENesin 200 MG/10 ML 10 ML UNIT-DOSE CUPS PO PRN (19:41)
[2022-11-17] MEDS ORDERED: ALBUTEROL SO4 2.5/IPRATROPIUM 0.5 INH SOL 3 ML VIAL.NEB. NEB SCH (19:45)
[2022-11-17] MEDS: MONTELUKAST NA 10 MG TABLET PO SCH (22:29)
[2022-11-17] MEDS: amLODIPine BESYLATE 10 MG TABLET (FP) PO SCH (22:29)
[2022-11-17] MEDS: TAMSULOSIN HCL 0.4 MG CAP PO SCH (22:29)
[2022-11-17] MEDS: MELATONIN 5 MG TABLETS PO SCH (22:29)
[2022-11-17] MEDS: THIAMINE HCL 100 MG TABLET (FP) PO SCH (22:29)
[2022-11-17] MEDS: LIDOCAINE PATCH REMOVAL MC SCH (22:33)
[2022-11-18] MEDS ORDERED: ALBUTEROL SO4 2.5/IPRATROPIUM 0.5 INH SOL 3 ML VIAL.NEB. NEB PRN (08:51)
[2022-11-18] MEDS: TAMSULOSIN HCL 0.4 MG CAP PO SCH (10:04)
[2022-11-18] MEDS: PRENATAL VITAMINS W/ FOLIC ACID TABLET (FP) PO SCH (10:04)
[2022-11-18] MEDS: amLODIPine BESYLATE 10 MG TABLET (FP) PO SCH (10:04)
[2022-11-18] MEDS: CHOLECALCIFEROL (VIT D3) 1,000 UNIT (25 MCG) TABLET PO SCH (10:04)
[2022-11-18] MEDS: LIDOCAINE 5% TOPICAL PATCH TP SCH (10:05)
[2022-11-18 11:27] LABS: HEMATOCRIT 43.9 % (35.4-49); HEMOGLOBIN 14.2 GM/dL (11.7-16.9); MCH 29.8 pg (25.7-33.7); MCHC 32.3 g/dl (32.0-35.9); MEAN CELL VOLUME 92.4 fl (80-96); MEAN PLT VOLUME 7.3 fl (7.5-11.1); PLATELET COUNT 108 10^3/uL (134-434); RBC 4.76 M/mm3 (4.00-5.60); RDW 17.4 % (11.9-15.9); WHITE BLOOD COUNT 3.2 K/mm3 (4.0-10.0)
[2022-11-18 11:31] LABS: POTASSIUM 4.1 mmol/L (3.5-5.1)
[2022-11-18 11:37] LABS: PH,URINE 6.5 (5.0-8.0); URINE APPEARANCE CLEAR; URINE BILIRUBIN NEGATIVE (NEGATIVE); URINE COLOR YELLOW; URINE GLUCOSE (UA) NEGATIVE (NEGATIVE); URINE KETONE NEGATIVE (NEGATIVE); URINE LEUK ESTERASE NEGATIVE (NEGATIVE); URINE NITRITE NEGATIVE (NEGATIVE); URINE PROTEIN NEGATIVE (NEGATIVE)
[2022-11-18 11:41] LABS: ALBUMIN 2.8 g/dl (3.4-5.0); CALCIUM 8.8 mg/dL (8.5-10.1); CREATININE 0.9 mg/dL (0.55-1.3)
[2022-11-18 11:42] LABS: BLOOD UREA NITROGEN 8.2 mg/dL (7-18); TOT PROT 5.3 g/dl (6.4-8.2)
[2022-11-18 11:43] LABS: BILIRUBIN,TOTAL 0.6 mg/dL (0.2-1)
[2022-11-18] MEDS ORDERED: ESCITALOPRAM OXALATE 10 MG TABLET ONE (11:43)
[2022-11-18] MEDS: ESCITALOPRAM OXALATE 20 MG TABLET PO SCH (12:15)
[2022-11-18] MEDS: THIAMINE HCL 100 MG TABLET (FP) PO SCH (21:28)
[2022-11-18] MEDS: MONTELUKAST NA 10 MG TABLET PO SCH (21:28)
[2022-11-18] MEDS: MELATONIN 5 MG TABLETS PO SCH (21:28)
[2022-11-18] MEDS: LIDOCAINE PATCH REMOVAL MC SCH (21:29)
[2022-11-19] MEDS ORDERED: ESCITALOPRAM OXALATE 10 MG TABLET ONE (08:25)
[2022-11-19] MEDS: CHOLECALCIFEROL (VIT D3) 1,000 UNIT (25 MCG) TABLET PO SCH (09:03)
[2022-11-19] MEDS: TAMSULOSIN HCL 0.4 MG CAP PO SCH (09:03)
[2022-11-19] MEDS: LIDOCAINE 5% TOPICAL PATCH TP SCH (09:04)
[2022-11-19] MEDS: ESCITALOPRAM OXALATE 20 MG TABLET PO SCH (09:04)
[2022-11-19] MEDS: PRENATAL VITAMINS W/ FOLIC ACID TABLET (FP) PO SCH (09:04)
[2022-11-19] MEDS: amLODIPine BESYLATE 10 MG TABLET (FP) PO SCH (09:05)
[2022-11-19] MEDS: THIAMINE HCL 100 MG TABLET (FP) PO SCH (21:26)
[2022-11-19] MEDS: MELATONIN 5 MG TABLETS PO SCH (21:26)
[2022-11-19] MEDS: MONTELUKAST NA 10 MG TABLET PO SCH (21:26)
[2022-11-19] MEDS: LIDOCAINE PATCH REMOVAL MC SCH (21:27)
[2022-11-20] MEDS: PRENATAL VITAMINS W/ FOLIC ACID TABLET (FP) PO SCH (09:04)
[2022-11-20] MEDS: LIDOCAINE 5% TOPICAL PATCH TP SCH (09:04)
[2022-11-20] MEDS: ESCITALOPRAM OXALATE 20 MG TABLET PO SCH (09:04)
[2022-11-20] MEDS: TAMSULOSIN HCL 0.4 MG CAP PO SCH (09:04)
[2022-11-20] MEDS: amLODIPine BESYLATE 10 MG TABLET (FP) PO SCH (09:04)
[2022-11-20] MEDS: CHOLECALCIFEROL (VIT D3) 1,000 UNIT (25 MCG) TABLET PO SCH (09:04)
[2022-11-20] MEDS: COLLOIDAL OATMEAL 1 BAR EACH TP PRN (20:02)
[2022-11-20] MEDS: MONTELUKAST NA 10 MG TABLET PO SCH (21:11)
[2022-11-20] MEDS: THIAMINE HCL 100 MG TABLET (FP) PO SCH (21:11)
[2022-11-20] MEDS: MELATONIN 5 MG TABLETS PO SCH (21:11)
[2022-11-20] MEDS: LIDOCAINE PATCH REMOVAL MC SCH (21:12)
[2022-11-20] MEDS: hydrOXYzine PAMOATE 25 MG CAPSULE (FP) PO PRN (21:12)
[2022-11-21] MEDS: hydrOXYzine PAMOATE 25 MG CAPSULE (FP) PO PRN ×2 (05:52→21:28)
[2022-11-21] MEDS ORDERED: ESCITALOPRAM OXALATE 10 MG TABLET ONE (08:33)
[2022-11-21] MEDS: amLODIPine BESYLATE 10 MG TABLET (FP) PO SCH (09:13)
[2022-11-21] MEDS: ESCITALOPRAM OXALATE 20 MG TABLET PO SCH (09:13)
[2022-11-21] MEDS: CHOLECALCIFEROL (VIT D3) 1,000 UNIT (25 MCG) TABLET PO SCH (09:13)
[2022-11-21] MEDS: TAMSULOSIN HCL 0.4 MG CAP PO SCH (09:13)
[2022-11-21] MEDS: PRENATAL VITAMINS W/ FOLIC ACID TABLET (FP) PO SCH (09:14)
[2022-11-21] MEDS: LIDOCAINE 5% TOPICAL PATCH TP SCH (11:30)
[2022-11-21] MEDS: MELATONIN 5 MG TABLETS PO SCH (21:28)
[2022-11-21] MEDS: MONTELUKAST NA 10 MG TABLET PO SCH (21:28)
[2022-11-21] MEDS: LIDOCAINE PATCH REMOVAL MC SCH (21:28)
[2022-11-21] MEDS: THIAMINE HCL 100 MG TABLET (FP) PO SCH (21:28)
[2022-11-22] MEDS ORDERED: ESCITALOPRAM OXALATE 10 MG TABLET ONE (08:23)
[2022-11-22] MEDS: ESCITALOPRAM OXALATE 20 MG TABLET PO SCH (10:01)
[2022-11-22] MEDS: CHOLECALCIFEROL (VIT D3) 1,000 UNIT (25 MCG) TABLET PO SCH (10:01)
[2022-11-22] MEDS: PRENATAL VITAMINS W/ FOLIC ACID TABLET (FP) PO SCH (10:01)
[2022-11-22] MEDS: TAMSULOSIN HCL 0.4 MG CAP PO SCH (10:01)
[2022-11-22] MEDS: LIDOCAINE 5% TOPICAL PATCH TP SCH (10:02)
[2022-11-22] MEDS: amLODIPine BESYLATE 10 MG TABLET (FP) PO SCH (10:02)
[2022-11-22] MEDS: THIAMINE HCL 100 MG TABLET (FP) PO SCH (21:26)
[2022-11-22] MEDS: MELATONIN 5 MG TABLETS PO SCH (21:26)
[2022-11-22] MEDS: LIDOCAINE PATCH REMOVAL MC SCH (21:27)
[2022-11-22] MEDS: MONTELUKAST NA 10 MG TABLET PO SCH (21:27)
[2022-11-23] MEDS ORDERED: ESCITALOPRAM OXALATE 10 MG TABLET ONE (08:33)
[2022-11-23] MEDS: CHOLECALCIFEROL (VIT D3) 1,000 UNIT (25 MCG) TABLET PO SCH (09:14)
[2022-11-23] MEDS: amLODIPine BESYLATE 10 MG TABLET (FP) PO SCH (09:14)
[2022-11-23] MEDS: PRENATAL VITAMINS W/ FOLIC ACID TABLET (FP) PO SCH (09:14)
[2022-11-23] MEDS: TAMSULOSIN HCL 0.4 MG CAP PO SCH (09:14)
[2022-11-23] MEDS: ESCITALOPRAM OXALATE 20 MG TABLET PO SCH (09:15)
[2022-11-23] MEDS: LIDOCAINE 5% TOPICAL PATCH TP SCH (10:09)
[2022-11-23] MEDS: MELATONIN 5 MG TABLETS PO SCH (21:13)
[2022-11-23] MEDS: THIAMINE HCL 100 MG TABLET (FP) PO SCH (21:13)
[2022-11-23] MEDS: LIDOCAINE PATCH REMOVAL MC SCH (21:14)
[2022-11-23] MEDS: hydrOXYzine PAMOATE 25 MG CAPSULE (FP) PO PRN (21:14)
[2022-11-23] MEDS: MONTELUKAST NA 10 MG TABLET PO SCH (21:14)
[2022-11-24] MEDS ORDERED: ESCITALOPRAM OXALATE 10 MG TABLET ONE (08:24)
[2022-11-24] MEDS: LIDOCAINE 5% TOPICAL PATCH TP SCH (09:06)
[2022-11-24] MEDS: amLODIPine BESYLATE 10 MG TABLET (FP) PO SCH (09:06)
[2022-11-24] MEDS: TAMSULOSIN HCL 0.4 MG CAP PO SCH (09:06)
[2022-11-24] MEDS: PRENATAL VITAMINS W/ FOLIC ACID TABLET (FP) PO SCH (09:06)
[2022-11-24] MEDS: ESCITALOPRAM OXALATE 20 MG TABLET PO SCH (09:06)
[2022-11-24] MEDS: CHOLECALCIFEROL (VIT D3) 1,000 UNIT (25 MCG) TABLET PO SCH (09:06)
[2022-11-24] MEDS: MELATONIN 5 MG TABLETS PO SCH (21:30)
[2022-11-24] MEDS: MONTELUKAST NA 10 MG TABLET PO SCH (21:30)
[2022-11-24] MEDS: THIAMINE HCL 100 MG TABLET (FP) PO SCH (21:30)
[2022-11-24] MEDS: LIDOCAINE PATCH REMOVAL MC SCH (21:31)
[2022-11-24] MEDS: hydrOXYzine PAMOATE 25 MG CAPSULE (FP) PO PRN (21:31)
[2022-11-25] MEDS: ESCITALOPRAM OXALATE 20 MG TABLET PO SCH (09:08)
[2022-11-25] MEDS: LIDOCAINE 5% TOPICAL PATCH TP SCH (09:08)
[2022-11-25] MEDS: amLODIPine BESYLATE 10 MG TABLET (FP) PO SCH (09:08)
[2022-11-25] MEDS: PRENATAL VITAMINS W/ FOLIC ACID TABLET (FP) PO SCH (09:08)
[2022-11-25] MEDS: CHOLECALCIFEROL (VIT D3) 1,000 UNIT (25 MCG) TABLET PO SCH (09:08)
[2022-11-25] MEDS: TAMSULOSIN HCL 0.4 MG CAP PO SCH (09:08)
[2022-11-25] MEDS: MONTELUKAST NA 10 MG TABLET PO SCH (21:11)
[2022-11-25] MEDS: MELATONIN 5 MG TABLETS PO SCH (21:11)
[2022-11-25] MEDS: THIAMINE HCL 100 MG TABLET (FP) PO SCH (21:11)
[2022-11-25] MEDS: hydrOXYzine PAMOATE 25 MG CAPSULE (FP) PO PRN (21:11)
[2022-11-25] MEDS: LIDOCAINE PATCH REMOVAL MC SCH (21:12)
[2022-11-26] MEDS ORDERED: ESCITALOPRAM OXALATE 10 MG TABLET ONE (08:44)
[2022-11-26] MEDS: TAMSULOSIN HCL 0.4 MG CAP PO SCH (09:38)
[2022-11-26] MEDS: amLODIPine BESYLATE 10 MG TABLET (FP) PO SCH (09:39)
[2022-11-26] MEDS: CHOLECALCIFEROL (VIT D3) 1,000 UNIT (25 MCG) TABLET PO SCH (09:39)
[2022-11-26] MEDS: ESCITALOPRAM OXALATE 20 MG TABLET PO SCH (09:39)
[2022-11-26] MEDS: LIDOCAINE 5% TOPICAL PATCH TP SCH (09:39)
[2022-11-26] MEDS: PRENATAL VITAMINS W/ FOLIC ACID TABLET (FP) PO SCH (09:39)
[2022-11-26] MEDS: LISINOPRIL 20 MG TABLET PO SCH (09:39)
[2022-11-26] MEDS: THIAMINE HCL 100 MG TABLET (FP) PO SCH (21:32)
[2022-11-26] MEDS: hydrOXYzine PAMOATE 25 MG CAPSULE (FP) PO PRN (21:32)
[2022-11-26] MEDS: LIDOCAINE PATCH REMOVAL MC SCH (21:32)
[2022-11-26] MEDS: MONTELUKAST NA 10 MG TABLET PO SCH (21:32)
[2022-11-26] MEDS: MELATONIN 5 MG TABLETS PO SCH (21:32)
[2022-11-27] MEDS ORDERED: ESCITALOPRAM OXALATE 10 MG TABLET ONE (08:53)
[2022-11-27] MEDS: TAMSULOSIN HCL 0.4 MG CAP PO SCH (09:30)
[2022-11-27] MEDS: LISINOPRIL 20 MG TABLET PO SCH (10:21)
[2022-11-27] MEDS: PRENATAL VITAMINS W/ FOLIC ACID TABLET (FP) PO SCH (10:22)
[2022-11-27] MEDS: amLODIPine BESYLATE 10 MG TABLET (FP) PO SCH (10:22)
[2022-11-27] MEDS: ESCITALOPRAM OXALATE 20 MG TABLET PO SCH (10:22)
[2022-11-27] MEDS: CHOLECALCIFEROL (VIT D3) 1,000 UNIT (25 MCG) TABLET PO SCH (10:22)
[2022-11-27] MEDS: LIDOCAINE 5% TOPICAL PATCH TP SCH (10:24)
[2022-11-27] MEDS: IPRATROPIUM/ALBUTEROL (COMBIVENT) RESPIMAT 20-100 MCG IH PRN (10:27)
[2022-11-27] MEDS: MONTELUKAST NA 10 MG TABLET PO SCH (21:17)
[2022-11-27] MEDS: THIAMINE HCL 100 MG TABLET (FP) PO SCH (21:17)
[2022-11-27] MEDS: LIDOCAINE PATCH REMOVAL MC SCH (21:18)
[2022-11-27] MEDS: MELATONIN 5 MG TABLETS PO SCH (21:18)
[2022-11-28] MEDS ORDERED: ESCITALOPRAM OXALATE 10 MG TABLET ONE (08:23)
[2022-11-28] MEDS: TAMSULOSIN HCL 0.4 MG CAP PO SCH (08:56)
[2022-11-28] MEDS: PRENATAL VITAMINS W/ FOLIC ACID TABLET (FP) PO SCH (09:33)
[2022-11-28] MEDS: LIDOCAINE 5% TOPICAL PATCH TP SCH (09:33)
[2022-11-28] MEDS: LISINOPRIL 20 MG TABLET PO SCH (09:34)
[2022-11-28] MEDS: CHOLECALCIFEROL (VIT D3) 1,000 UNIT (25 MCG) TABLET PO SCH (09:34)
[2022-11-28] MEDS: amLODIPine BESYLATE 10 MG TABLET (FP) PO SCH (09:34)
[2022-11-28] MEDS: ESCITALOPRAM OXALATE 20 MG TABLET PO SCH (09:34)
[2022-11-28] MEDS: THIAMINE HCL 100 MG TABLET (FP) PO SCH (21:22)
[2022-11-28] MEDS: MONTELUKAST NA 10 MG TABLET PO SCH (21:22)
[2022-11-28] MEDS: LIDOCAINE PATCH REMOVAL MC SCH (21:22)
[2022-11-28] MEDS: MELATONIN 5 MG TABLETS PO SCH (21:22)
[2022-11-29] MEDS ORDERED: ESCITALOPRAM OXALATE 10 MG TABLET ONE (08:32)
[2022-11-29] MEDS: LISINOPRIL 20 MG TABLET PO SCH (09:16)
[2022-11-29] MEDS: CHOLECALCIFEROL (VIT D3) 1,000 UNIT (25 MCG) TABLET PO SCH (09:16)
[2022-11-29] MEDS: amLODIPine BESYLATE 10 MG TABLET (FP) PO SCH (09:16)
[2022-11-29] MEDS: TAMSULOSIN HCL 0.4 MG CAP PO SCH (09:16)
[2022-11-29] MEDS: ESCITALOPRAM OXALATE 20 MG TABLET PO SCH (09:17)
[2022-11-29] MEDS: LIDOCAINE 5% TOPICAL PATCH TP SCH (09:17)
[2022-11-29] MEDS: PRENATAL VITAMINS W/ FOLIC ACID TABLET (FP) PO SCH (09:17)
[2022-11-29] MEDS: IPRATROPIUM/ALBUTEROL (COMBIVENT) RESPIMAT 20-100 MCG IH PRN (09:18)
[2022-11-29] MEDS: THIAMINE HCL 100 MG TABLET (FP) PO SCH (21:08)
[2022-11-29] MEDS: MONTELUKAST NA 10 MG TABLET PO SCH (21:08)
[2022-11-29] MEDS: MELATONIN 5 MG TABLETS PO SCH (21:08)
[2022-11-29] MEDS: LIDOCAINE PATCH REMOVAL MC SCH (21:09)
[2022-11-29] MEDS: hydrOXYzine PAMOATE 25 MG CAPSULE (FP) PO PRN (21:09)
[2022-11-30] MEDS ORDERED: ESCITALOPRAM OXALATE 10 MG TABLET ONE (08:33)
[2022-11-30] MEDS: TAMSULOSIN HCL 0.4 MG CAP PO SCH (09:02)
[2022-11-30] MEDS: CHOLECALCIFEROL (VIT D3) 1,000 UNIT (25 MCG) TABLET PO SCH (09:02)
[2022-11-30] MEDS: LIDOCAINE 5% TOPICAL PATCH TP SCH (09:03)
[2022-11-30] MEDS: ESCITALOPRAM OXALATE 20 MG TABLET PO SCH (09:03)
[2022-11-30] MEDS: amLODIPine BESYLATE 10 MG TABLET (FP) PO SCH (09:03)
[2022-11-30] MEDS: LISINOPRIL 20 MG TABLET PO SCH (09:03)
[2022-11-30] MEDS: PRENATAL VITAMINS W/ FOLIC ACID TABLET (FP) PO SCH (09:04)
[2022-11-30] MEDS: MELATONIN 5 MG TABLETS PO SCH (21:12)
[2022-11-30] MEDS: THIAMINE HCL 100 MG TABLET (FP) PO SCH (21:12)
[2022-11-30] MEDS: MONTELUKAST NA 10 MG TABLET PO SCH (21:12)
[2022-11-30] MEDS: LIDOCAINE PATCH REMOVAL MC SCH (21:12)
[2022-11-30] MEDS: hydrOXYzine PAMOATE 25 MG CAPSULE (FP) PO PRN (21:12)
[2022-12-01] MEDS: ESCITALOPRAM OXALATE 20 MG TABLET PO SCH (09:11)
[2022-12-01] MEDS: CHOLECALCIFEROL (VIT D3) 1,000 UNIT (25 MCG) TABLET PO SCH (09:11)
[2022-12-01] MEDS: LISINOPRIL 20 MG TABLET PO SCH (09:11)
[2022-12-01] MEDS: TAMSULOSIN HCL 0.4 MG CAP PO SCH (09:11)
[2022-12-01] MEDS: LIDOCAINE 5% TOPICAL PATCH TP SCH (09:11)
[2022-12-01] MEDS: PRENATAL VITAMINS W/ FOLIC ACID TABLET (FP) PO SCH (09:11)
[2022-12-01] MEDS: amLODIPine BESYLATE 10 MG TABLET (FP) PO SCH (09:11)
[2022-12-01] MEDS: LIDOCAINE PATCH REMOVAL MC SCH (21:22)
[2022-12-01] MEDS: hydrOXYzine PAMOATE 25 MG CAPSULE (FP) PO PRN (21:22)
[2022-12-01] MEDS: MONTELUKAST NA 10 MG TABLET PO SCH (21:22)
[2022-12-01] MEDS: MELATONIN 5 MG TABLETS PO SCH (21:22)
[2022-12-01] MEDS: THIAMINE HCL 100 MG TABLET (FP) PO SCH (21:22)
[2022-12-02] MEDS: TAMSULOSIN HCL 0.4 MG CAP PO SCH (09:02)
[2022-12-02] MEDS: PRENATAL VITAMINS W/ FOLIC ACID TABLET (FP) PO SCH (09:02)
[2022-12-02] MEDS: LISINOPRIL 20 MG TABLET PO SCH (09:02)
[2022-12-02] MEDS: ESCITALOPRAM OXALATE 20 MG TABLET PO SCH (09:02)
[2022-12-02] MEDS: amLODIPine BESYLATE 10 MG TABLET (FP) PO SCH (09:03)
[2022-12-02] MEDS: CHOLECALCIFEROL (VIT D3) 1,000 UNIT (25 MCG) TABLET PO SCH (10:05)
[2022-12-02] MEDS: LIDOCAINE 5% TOPICAL PATCH TP SCH (10:05)
[2022-12-02] MEDS: MONTELUKAST NA 10 MG TABLET PO SCH (21:02)
[2022-12-02] MEDS: hydrOXYzine PAMOATE 25 MG CAPSULE (FP) PO PRN (21:02)
[2022-12-02] MEDS: MELATONIN 5 MG TABLETS PO SCH (21:03)
[2022-12-02] MEDS: LIDOCAINE PATCH REMOVAL MC SCH (21:03)
[2022-12-02] MEDS: THIAMINE HCL 100 MG TABLET (FP) PO SCH (21:03)
[2022-12-03] MEDS ORDERED: ESCITALOPRAM OXALATE 10 MG TABLET ONE (08:23)
[2022-12-03] MEDS: LISINOPRIL 20 MG TABLET PO SCH (09:09)
[2022-12-03] MEDS: PRENATAL VITAMINS W/ FOLIC ACID TABLET (FP) PO SCH (09:09)
[2022-12-03] MEDS: CHOLECALCIFEROL (VIT D3) 1,000 UNIT (25 MCG) TABLET PO SCH (09:09)
[2022-12-03] MEDS: TAMSULOSIN HCL 0.4 MG CAP PO SCH (09:09)
[2022-12-03] MEDS: amLODIPine BESYLATE 10 MG TABLET (FP) PO SCH (09:09)
[2022-12-03] MEDS: ESCITALOPRAM OXALATE 20 MG TABLET PO SCH (09:10)
[2022-12-03] MEDS: LIDOCAINE 5% TOPICAL PATCH TP SCH (09:10)
[2022-12-03] MEDS: COLLOIDAL OATMEAL 1 BAR EACH TP PRN (13:12)
[2022-12-03] MEDS: MONTELUKAST NA 10 MG TABLET PO SCH (21:40)
[2022-12-03] MEDS: MELATONIN 5 MG TABLETS PO SCH (21:40)
[2022-12-03] MEDS: hydrOXYzine PAMOATE 25 MG CAPSULE (FP) PO PRN (21:40)
[2022-12-03] MEDS: LIDOCAINE PATCH REMOVAL MC SCH (21:41)
[2022-12-03] MEDS: THIAMINE HCL 100 MG TABLET (FP) PO SCH (21:41)
[2022-12-04] MEDS ORDERED: ESCITALOPRAM OXALATE 10 MG TABLET ONE (08:33)
[2022-12-04] MEDS: LIDOCAINE 5% TOPICAL PATCH TP SCH (09:03)
[2022-12-04] MEDS: ESCITALOPRAM OXALATE 20 MG TABLET PO SCH (09:03)
[2022-12-04] MEDS: PRENATAL VITAMINS W/ FOLIC ACID TABLET (FP) PO SCH (09:03)
[2022-12-04] MEDS: TAMSULOSIN HCL 0.4 MG CAP PO SCH (09:03)
[2022-12-04] MEDS: amLODIPine BESYLATE 10 MG TABLET (FP) PO SCH (09:03)
[2022-12-04] MEDS: CHOLECALCIFEROL (VIT D3) 1,000 UNIT (25 MCG) TABLET PO SCH (09:03)
[2022-12-04] MEDS: LISINOPRIL 20 MG TABLET PO SCH (09:03)
[2022-12-04] MEDS: THIAMINE HCL 100 MG TABLET (FP) PO SCH (21:15)
[2022-12-04] MEDS: LIDOCAINE PATCH REMOVAL MC SCH (21:16)
[2022-12-04] MEDS: MONTELUKAST NA 10 MG TABLET PO SCH (21:16)
[2022-12-04] MEDS: hydrOXYzine PAMOATE 25 MG CAPSULE (FP) PO PRN (21:16)
[2022-12-04] MEDS: MELATONIN 5 MG TABLETS PO SCH (21:16)
[2022-12-05] MEDS: TAMSULOSIN HCL 0.4 MG CAP PO SCH (09:03)
[2022-12-05] MEDS: CHOLECALCIFEROL (VIT D3) 1,000 UNIT (25 MCG) TABLET PO SCH (09:03)
[2022-12-05] MEDS: LISINOPRIL 20 MG TABLET PO SCH (09:03)
[2022-12-05] MEDS: PRENATAL VITAMINS W/ FOLIC ACID TABLET (FP) PO SCH (09:04)
[2022-12-05] MEDS: ESCITALOPRAM OXALATE 20 MG TABLET PO SCH (09:04)
[2022-12-05] MEDS: amLODIPine BESYLATE 10 MG TABLET (FP) PO SCH (09:04)
[2022-12-05] MEDS: LIDOCAINE 5% TOPICAL PATCH TP SCH (09:04)
[2022-12-05] MEDS: MONTELUKAST NA 10 MG TABLET PO SCH (21:12)
[2022-12-05] MEDS: hydrOXYzine PAMOATE 25 MG CAPSULE (FP) PO PRN (21:12)
[2022-12-05] MEDS: THIAMINE HCL 100 MG TABLET (FP) PO SCH (21:12)
[2022-12-05] MEDS: MELATONIN 5 MG TABLETS PO SCH (21:12)
[2022-12-05] MEDS: LIDOCAINE PATCH REMOVAL MC SCH (21:13)
[2022-12-06] MEDS ORDERED: ESCITALOPRAM OXALATE 10 MG TABLET ONE (08:39)
[2022-12-06] MEDS: LISINOPRIL 20 MG TABLET PO SCH (09:15)
[2022-12-06] MEDS: ESCITALOPRAM OXALATE 20 MG TABLET PO SCH (09:16)
[2022-12-06] MEDS: PRENATAL VITAMINS W/ FOLIC ACID TABLET (FP) PO SCH (09:16)
[2022-12-06] MEDS: TAMSULOSIN HCL 0.4 MG CAP PO SCH (09:16)
[2022-12-06] MEDS: CHOLECALCIFEROL (VIT D3) 1,000 UNIT (25 MCG) TABLET PO SCH (09:16)
[2022-12-06] MEDS: amLODIPine BESYLATE 10 MG TABLET (FP) PO SCH (09:16)
[2022-12-06] MEDS: LIDOCAINE 5% TOPICAL PATCH TP SCH (09:17)
[2022-12-06] MEDS: MONTELUKAST NA 10 MG TABLET PO SCH (21:33)
[2022-12-06] MEDS: LIDOCAINE PATCH REMOVAL MC SCH (21:33)
[2022-12-06] MEDS: MELATONIN 5 MG TABLETS PO SCH (21:33)
[2022-12-06] MEDS: THIAMINE HCL 100 MG TABLET (FP) PO SCH (21:33)
[2022-12-06] MEDS: hydrOXYzine PAMOATE 25 MG CAPSULE (FP) PO PRN (21:33)
[2022-12-07 07:07] VITALS: TEMP 97.7
[2022-12-07] MEDS: PRENATAL VITAMINS W/ FOLIC ACID TABLET (FP) PO SCH (09:05)
[2022-12-07] MEDS: ESCITALOPRAM OXALATE 20 MG TABLET PO SCH (09:05)
[2022-12-07] MEDS: LISINOPRIL 20 MG TABLET PO SCH (09:05)
[2022-12-07] MEDS: TAMSULOSIN HCL 0.4 MG CAP PO SCH (09:05)
[2022-12-07] MEDS: CHOLECALCIFEROL (VIT D3) 1,000 UNIT (25 MCG) TABLET PO SCH (09:05)
[2022-12-07] MEDS: LIDOCAINE 5% TOPICAL PATCH TP SCH (09:05)
[2022-12-07] MEDS: amLODIPine BESYLATE 10 MG TABLET (FP) PO SCH (09:05)
[2022-12-07] MEDS: THIAMINE HCL 100 MG TABLET (FP) PO SCH (21:06)
[2022-12-07] MEDS: MELATONIN 5 MG TABLETS PO SCH (21:06)
[2022-12-07] MEDS: MONTELUKAST NA 10 MG TABLET PO SCH (21:06)
[2022-12-07] MEDS: hydrOXYzine PAMOATE 25 MG CAPSULE (FP) PO PRN (21:06)
[2022-12-07] MEDS: LIDOCAINE PATCH REMOVAL MC SCH (21:07)
[2022-12-07 23:35] VITALS: RESP 18
[2022-12-08] MEDS: LISINOPRIL 20 MG TABLET PO SCH (09:03)
[2022-12-08] MEDS: ESCITALOPRAM OXALATE 20 MG TABLET PO SCH (09:03)
[2022-12-08] MEDS: TAMSULOSIN HCL 0.4 MG CAP PO SCH (09:03)
[2022-12-08] MEDS: PRENATAL VITAMINS W/ FOLIC ACID TABLET (FP) PO SCH (09:03)
[2022-12-08] MEDS: amLODIPine BESYLATE 10 MG TABLET (FP) PO SCH (09:03)
[2022-12-08] MEDS: CHOLECALCIFEROL (VIT D3) 1,000 UNIT (25 MCG) TABLET PO SCH (09:04)
[2022-12-08] MEDS: LIDOCAINE 5% TOPICAL PATCH TP SCH (10:15)
[2022-12-08] MEDS: MELATONIN 5 MG TABLETS PO SCH (21:18)
[2022-12-08] MEDS: THIAMINE HCL 100 MG TABLET (FP) PO SCH (21:18)
[2022-12-08] MEDS: hydrOXYzine PAMOATE 25 MG CAPSULE (FP) PO PRN (21:18)
[2022-12-08] MEDS: MONTELUKAST NA 10 MG TABLET PO SCH (21:18)
[2022-12-08] MEDS: LIDOCAINE PATCH REMOVAL MC SCH (21:19)
[2022-12-09] MEDS: TAMSULOSIN HCL 0.4 MG CAP PO SCH (09:35)
[2022-12-09] MEDS: CHOLECALCIFEROL (VIT D3) 1,000 UNIT (25 MCG) TABLET PO SCH (09:35)
[2022-12-09] MEDS: LISINOPRIL 20 MG TABLET PO SCH (09:35)
[2022-12-09] MEDS: PRENATAL VITAMINS W/ FOLIC ACID TABLET (FP) PO SCH (09:35)
[2022-12-09] MEDS: amLODIPine BESYLATE 10 MG TABLET (FP) PO SCH (09:35)
[2022-12-09] MEDS: ESCITALOPRAM OXALATE 20 MG TABLET PO SCH (09:35)
[2022-12-09] MEDS: LIDOCAINE 5% TOPICAL PATCH TP SCH (09:36)
[2022-12-09] MEDS: THIAMINE HCL 100 MG TABLET (FP) PO SCH (21:14)
[2022-12-09] MEDS: LIDOCAINE PATCH REMOVAL MC SCH (21:15)
[2022-12-09] MEDS: MONTELUKAST NA 10 MG TABLET PO SCH (21:15)
[2022-12-09] MEDS: hydrOXYzine PAMOATE 25 MG CAPSULE (FP) PO PRN (21:15)
[2022-12-09] MEDS: MELATONIN 5 MG TABLETS PO SCH (21:15)
[2022-12-10] MEDS ORDERED: ESCITALOPRAM OXALATE 10 MG TABLET ONE (08:43)
[2022-12-10] MEDS: TAMSULOSIN HCL 0.4 MG CAP PO SCH (09:05)
[2022-12-10] MEDS: LISINOPRIL 20 MG TABLET PO SCH (09:05)
[2022-12-10] MEDS: amLODIPine BESYLATE 10 MG TABLET (FP) PO SCH (09:05)
[2022-12-10] MEDS: CHOLECALCIFEROL (VIT D3) 1,000 UNIT (25 MCG) TABLET PO SCH (09:05)
[2022-12-10] MEDS: PRENATAL VITAMINS W/ FOLIC ACID TABLET (FP) PO SCH (09:06)
[2022-12-10] MEDS: ESCITALOPRAM OXALATE 20 MG TABLET PO SCH (09:06)
[2022-12-10] MEDS: LIDOCAINE 5% TOPICAL PATCH TP SCH (09:06)
[2022-12-10 09:11] VITALS: BP 139/78; PULSE 93
== END 2022-12-10 11:50 | disposition home or self-care (01) | DRG 772 ==
LOC: YASAS 15:07 → Y3W 19:27
PROVIDERS: ADMIT Allergy & Immunology; ATTEND Psychiatry & Neurology Pain Medicine
PROC: HZ42ZZZ Group Counseling for Substance Abuse Treatment, Cognitive-Behavioral (ICD-10-PCS; principal; 2022-11-17)
DX: F14.20 Cocaine dependence, uncomplicated (principal); F10.20 Alcohol dependence, uncomplicated; F17.210 Nicotine dependence, cigarettes, uncomplicated; F41.9 Anxiety disorder, unspecified; F32.A Depression, unspecified; I10 Essential (primary) hypertension; J43.0 Unilateral pulmonary emphysema [MacLeod's syndrome]; K21.9 Gastro-esophageal reflux disease without esophagitis; M54.50 Low back pain, unspecified; G89.29 Other chronic pain; N40.0 Benign prostatic hyperplasia without lower urinary tract symptoms; R07.9 Chest pain, unspecified; M25.561 Pain in right knee
CPT/HCPCS: 36415; 71045-TC-FY; 80053; 80305; 81003; 85027; 86780; 87635; 93005; 93010; 94640; J3535

== ENCOUNTER 2023-02-22 11:09 | Inpatient (IN) | payer OTHER ==
[2023-02-22 11:29] VITALS: BMI 26.6
[2023-02-22] MEDS ORDERED: BENZONATATE 200 MG CAPSULE PO PRN (13:05)
[2023-02-22] MEDS ORDERED: IBUPROFEN 400 MG TABLET (FP) PO PRN (13:05)
[2023-02-22] MEDS ORDERED: MAGNESIUM HYDROX 2400MG/30ML ORAL SUSPENSION 30 ML CUP PO PRN (13:05)
[2023-02-22] MEDS ORDERED: POLYETHYLENE GLYCOL (HEALTHYLAX) 3350 17 GM PACKET PO PRN (13:05)
[2023-02-22] MEDS ORDERED: guaiFENesin 600 MG TABLET.ER (FP) PO PRN (13:05)
[2023-02-22] MEDS ORDERED: NALOXONE HCL (KLOXXADO) 8 MG SPRAY NS PRN (13:05)
[2023-02-22] MEDS ORDERED: IBUPROFEN 600 MG TABLET (FP) PO PRN (13:05)
[2023-02-22] MEDS ORDERED: LOPERAMIDE HCL 2 MG CAPSULE PO PRN (13:05)
[2023-02-22] MEDS ORDERED: ACETAMINOPHEN 325 MG TABLET (FP) PO PRN (13:05)
[2023-02-22] MEDS ORDERED: MAG HYDROX/AL HYDROX/SIMETH 30 ML UNIT-DOSE CUP PO PRN (13:05)
[2023-02-22] MEDS ORDERED: NICOTINE POLACRILEX 2 MG GUM BUC PRN (13:05)
[2023-02-22] MEDS ORDERED: NALOXONE HCL 0.4 MG/ML VIAL IM PRN (13:05)
[2023-02-22] MEDS: THIAMINE HCL 100 MG TABLET (FP) PO SCH (21:14)
[2023-02-22] MEDS: FAMOTIDINE 20 MG TABLET PO SCH (21:15)
[2023-02-22] MEDS: ALBUTEROL SO4 HFA INHALER IH PRN (21:15)
[2023-02-22] MEDS: MELATONIN 5 MG TABLETS PO SCH (21:15)
[2023-02-22] MEDS: MONTELUKAST NA 10 MG TABLET PO SCH (21:15)
[2023-02-22] MEDS: BENZOCAINE/MENTHOL (CHLORASEPTIC ) LOZENGE MM PRN (21:16)
[2023-02-23] MEDS: NICOTINE 21 MG/24 HOURS TOPICAL PATCH TD SCH (09:09)
[2023-02-23] MEDS: amLODIPine BESYLATE 10 MG TABLET (FP) PO SCH (09:09)
[2023-02-23] MEDS: LISINOPRIL 20 MG TABLET PO SCH (09:09)
[2023-02-23] MEDS: PRENATAL VITAMINS W/ FOLIC ACID TABLET (FP) PO SCH (09:09)
[2023-02-23] MEDS: CHOLECALCIFEROL (VIT D3) 1,000 UNIT (25 MCG) TABLET PO SCH (09:09)
[2023-02-23] MEDS: TAMSULOSIN HCL 0.4 MG CAP PO SCH (09:09)
[2023-02-23] MEDS: ALBUTEROL SO4 HFA INHALER IH PRN ×2 (09:22→21:11)
[2023-02-23 11:14] LABS: HEMATOCRIT 39.5 % (35.4-49); HEMOGLOBIN 12.9 GM/dL (11.7-16.9); MCH 29.9 pg (25.7-33.7); MCHC 32.8 g/dl (32.0-35.9); MEAN CELL VOLUME 91.3 fl (80-96); PLATELET COUNT 122 10^3/uL (134-434); RBC 4.32 M/mm3 (4.00-5.60); RDW 16.6 % (11.9-15.9)
[2023-02-23 11:32] LABS: URINE APPEARANCE CLEAR; URINE BILIRUBIN NEGATIVE (NEGATIVE); URINE COLOR YELLOW; URINE GLUCOSE (UA) NEGATIVE (NEGATIVE); URINE KETONE NEGATIVE (NEGATIVE); URINE LEUK ESTERASE NEGATIVE (NEGATIVE); URINE NITRITE NEGATIVE (NEGATIVE); URINE PROTEIN NEGATIVE (NEGATIVE); URINE UROBILINOGEN 0.2 mg/dL (0.2-1.0)
[2023-02-23 12:23] LABS: ALBUMIN 3.6 g/dl (3.4-5.0); BLOOD UREA NITROGEN 9.1 mg/dL (7-18)
[2023-02-23 12:26] LABS: CREATININE 0.8 mg/dL (0.55-1.3)
[2023-02-23 12:28] LABS: BILIRUBIN,TOTAL 0.7 mg/dL (0.2-1); TOT PROT 6.3 g/dl (6.4-8.2)
[2023-02-23] MEDS ORDERED: ALBUTEROL SO4 2.5/IPRATROPIUM 0.5 INH SOL 3 ML VIAL.NEB. NEB PRN (14:23)
[2023-02-23] MEDS ORDERED: cloNIDine HCL 0.1 MG TABLET PO PRN (14:31)
[2023-02-23] MEDS: MELATONIN 5 MG TABLETS PO SCH (21:10)
[2023-02-23] MEDS: FAMOTIDINE 20 MG TABLET PO SCH (21:10)
[2023-02-23] MEDS: MONTELUKAST NA 10 MG TABLET PO SCH (21:10)
[2023-02-23] MEDS: THIAMINE HCL 100 MG TABLET (FP) PO SCH (21:10)
[2023-02-23] MEDS: BENZOCAINE/MENTHOL (CHLORASEPTIC ) LOZENGE MM PRN (21:11)
[2023-02-24] MEDS: ALBUTEROL SO4 HFA INHALER IH PRN ×2 (09:04→21:10)
[2023-02-24] MEDS: NICOTINE 21 MG/24 HOURS TOPICAL PATCH TD SCH (09:04)
[2023-02-24] MEDS: TAMSULOSIN HCL 0.4 MG CAP PO SCH (09:04)
[2023-02-24] MEDS: amLODIPine BESYLATE 10 MG TABLET (FP) PO SCH (09:04)
[2023-02-24] MEDS: ESCITALOPRAM OXALATE 10 MG TABLET PO SCH (09:04)
[2023-02-24] MEDS: PRENATAL VITAMINS W/ FOLIC ACID TABLET (FP) PO SCH (09:04)
[2023-02-24] MEDS: CHOLECALCIFEROL (VIT D3) 1,000 UNIT (25 MCG) TABLET PO SCH (09:04)
[2023-02-24] MEDS: LISINOPRIL 20 MG TABLET PO SCH (09:04)
[2023-02-24] MEDS: BENZOCAINE/MENTHOL (CHLORASEPTIC ) LOZENGE MM PRN ×2 (09:50→21:11)
[2023-02-24] MEDS: FAMOTIDINE 20 MG TABLET PO SCH (21:09)
[2023-02-24] MEDS: MELATONIN 5 MG TABLETS PO SCH (21:09)
[2023-02-24] MEDS: THIAMINE HCL 100 MG TABLET (FP) PO SCH (21:09)
[2023-02-24] MEDS: MONTELUKAST NA 10 MG TABLET PO SCH (21:09)
[2023-02-25] MEDS: PRENATAL VITAMINS W/ FOLIC ACID TABLET (FP) PO SCH (09:03)
[2023-02-25] MEDS: LISINOPRIL 20 MG TABLET PO SCH (09:04)
[2023-02-25] MEDS: TAMSULOSIN HCL 0.4 MG CAP PO SCH (09:04)
[2023-02-25] MEDS: CHOLECALCIFEROL (VIT D3) 1,000 UNIT (25 MCG) TABLET PO SCH (09:04)
[2023-02-25] MEDS: amLODIPine BESYLATE 10 MG TABLET (FP) PO SCH (09:04)
[2023-02-25] MEDS: NICOTINE 21 MG/24 HOURS TOPICAL PATCH TD SCH (09:05)
[2023-02-25] MEDS: ESCITALOPRAM OXALATE 10 MG TABLET PO SCH (09:05)
[2023-02-25] MEDS: ALBUTEROL SO4 HFA INHALER IH PRN ×2 (09:06→21:05)
[2023-02-25] MEDS: BENZOCAINE/MENTHOL (CHLORASEPTIC ) LOZENGE MM PRN (09:07)
[2023-02-25] MEDS: MONTELUKAST NA 10 MG TABLET PO SCH (21:05)
[2023-02-25] MEDS: MELATONIN 5 MG TABLETS PO SCH (21:05)
[2023-02-25] MEDS: FAMOTIDINE 20 MG TABLET PO SCH (21:05)
[2023-02-25] MEDS: THIAMINE HCL 100 MG TABLET (FP) PO SCH (21:06)
[2023-02-26] MEDS: PRENATAL VITAMINS W/ FOLIC ACID TABLET (FP) PO SCH (09:04)
[2023-02-26] MEDS: TAMSULOSIN HCL 0.4 MG CAP PO SCH (09:04)
[2023-02-26] MEDS: NICOTINE 21 MG/24 HOURS TOPICAL PATCH TD SCH (09:05)
[2023-02-26] MEDS: LISINOPRIL 20 MG TABLET PO SCH (09:05)
[2023-02-26] MEDS: ESCITALOPRAM OXALATE 10 MG TABLET PO SCH (09:05)
[2023-02-26] MEDS: amLODIPine BESYLATE 10 MG TABLET (FP) PO SCH (09:05)
[2023-02-26] MEDS: CHOLECALCIFEROL (VIT D3) 1,000 UNIT (25 MCG) TABLET PO SCH (09:05)
[2023-02-26] MEDS: ALBUTEROL SO4 HFA INHALER IH PRN ×2 (09:07→21:16)
[2023-02-26] MEDS: BENZOCAINE/MENTHOL (CHLORASEPTIC ) LOZENGE MM PRN ×2 (09:07→21:16)
[2023-02-26] MEDS: MONTELUKAST NA 10 MG TABLET PO SCH (21:16)
[2023-02-26] MEDS: THIAMINE HCL 100 MG TABLET (FP) PO SCH (21:16)
[2023-02-26] MEDS: MELATONIN 5 MG TABLETS PO SCH (21:16)
[2023-02-26] MEDS: FAMOTIDINE 20 MG TABLET PO SCH (21:16)
[2023-02-27] MEDS: BENZOCAINE/MENTHOL (CHLORASEPTIC ) LOZENGE MM PRN ×2 (09:00→21:09)
[2023-02-27] MEDS: CHOLECALCIFEROL (VIT D3) 1,000 UNIT (25 MCG) TABLET PO SCH (09:00)
[2023-02-27] MEDS: TAMSULOSIN HCL 0.4 MG CAP PO SCH (09:00)
[2023-02-27] MEDS: ALBUTEROL SO4 HFA INHALER IH PRN (09:00)
[2023-02-27] MEDS: NICOTINE 21 MG/24 HOURS TOPICAL PATCH TD SCH (09:01)
[2023-02-27] MEDS: LISINOPRIL 20 MG TABLET PO SCH (09:01)
[2023-02-27] MEDS: amLODIPine BESYLATE 10 MG TABLET (FP) PO SCH (09:01)
[2023-02-27] MEDS: PRENATAL VITAMINS W/ FOLIC ACID TABLET (FP) PO SCH (09:01)
[2023-02-27] MEDS: ESCITALOPRAM OXALATE 10 MG TABLET PO SCH (09:01)
[2023-02-27] MEDS: MELATONIN 5 MG TABLETS PO SCH (21:09)
[2023-02-27] MEDS: FAMOTIDINE 20 MG TABLET PO SCH (21:09)
[2023-02-27] MEDS: MONTELUKAST NA 10 MG TABLET PO SCH (21:09)
[2023-02-27] MEDS: THIAMINE HCL 100 MG TABLET (FP) PO SCH (21:09)
[2023-02-28] MEDS: CHOLECALCIFEROL (VIT D3) 1,000 UNIT (25 MCG) TABLET PO SCH (09:08)
[2023-02-28] MEDS: TAMSULOSIN HCL 0.4 MG CAP PO SCH (09:08)
[2023-02-28] MEDS: LISINOPRIL 20 MG TABLET PO SCH (09:08)
[2023-02-28] MEDS: PRENATAL VITAMINS W/ FOLIC ACID TABLET (FP) PO SCH (09:08)
[2023-02-28] MEDS: amLODIPine BESYLATE 10 MG TABLET (FP) PO SCH (09:08)
[2023-02-28] MEDS: ESCITALOPRAM OXALATE 10 MG TABLET PO SCH (09:08)
[2023-02-28] MEDS: NICOTINE 21 MG/24 HOURS TOPICAL PATCH TD SCH (09:09)
[2023-02-28] MEDS: BENZOCAINE/MENTHOL (CHLORASEPTIC ) LOZENGE MM PRN ×2 (09:10→21:12)
[2023-02-28] MEDS: COLLOIDAL OATMEAL 1 BAR EACH TP PRN (16:57)
[2023-02-28] MEDS: FAMOTIDINE 20 MG TABLET PO SCH (21:11)
[2023-02-28] MEDS: MELATONIN 5 MG TABLETS PO SCH (21:11)
[2023-02-28] MEDS: BACITRACIN 0.9 GM PACKET TP SCH (21:11)
[2023-02-28] MEDS: THIAMINE HCL 100 MG TABLET (FP) PO SCH (21:11)
[2023-02-28] MEDS: MONTELUKAST NA 10 MG TABLET PO SCH (21:11)
[2023-03-01] MEDS: CHOLECALCIFEROL (VIT D3) 1,000 UNIT (25 MCG) TABLET PO SCH (09:00)
[2023-03-01] MEDS: PRENATAL VITAMINS W/ FOLIC ACID TABLET (FP) PO SCH (09:01)
[2023-03-01] MEDS: ESCITALOPRAM OXALATE 10 MG TABLET PO SCH (09:01)
[2023-03-01] MEDS: NICOTINE 21 MG/24 HOURS TOPICAL PATCH TD SCH (09:01)
[2023-03-01] MEDS: LISINOPRIL 20 MG TABLET PO SCH (09:01)
[2023-03-01] MEDS: amLODIPine BESYLATE 10 MG TABLET (FP) PO SCH (09:01)
[2023-03-01] MEDS: BACITRACIN 0.9 GM PACKET TP SCH ×2 (09:01→21:13)
[2023-03-01] MEDS: TAMSULOSIN HCL 0.4 MG CAP PO SCH (09:01)
[2023-03-01] MEDS: MONTELUKAST NA 10 MG TABLET PO SCH (21:13)
[2023-03-01] MEDS: FAMOTIDINE 20 MG TABLET PO SCH (21:13)
[2023-03-01] MEDS: THIAMINE HCL 100 MG TABLET (FP) PO SCH (21:13)
[2023-03-01] MEDS: MELATONIN 5 MG TABLETS PO SCH (21:13)
[2023-03-01] MEDS: BENZOCAINE/MENTHOL (CHLORASEPTIC ) LOZENGE MM PRN (21:14)
[2023-03-02] MEDS: NICOTINE 21 MG/24 HOURS TOPICAL PATCH TD SCH (09:17)
[2023-03-02] MEDS: CHOLECALCIFEROL (VIT D3) 1,000 UNIT (25 MCG) TABLET PO SCH (09:17)
[2023-03-02] MEDS: TAMSULOSIN HCL 0.4 MG CAP PO SCH (09:17)
[2023-03-02] MEDS: amLODIPine BESYLATE 10 MG TABLET (FP) PO SCH (09:17)
[2023-03-02] MEDS: ESCITALOPRAM OXALATE 10 MG TABLET PO SCH (09:17)
[2023-03-02] MEDS: LISINOPRIL 20 MG TABLET PO SCH (09:17)
[2023-03-02] MEDS: PRENATAL VITAMINS W/ FOLIC ACID TABLET (FP) PO SCH (09:17)
[2023-03-02] MEDS: BACITRACIN 0.9 GM PACKET TP SCH ×2 (09:17→21:10)
[2023-03-02] MEDS: BENZOCAINE/MENTHOL (CHLORASEPTIC ) LOZENGE MM PRN ×2 (09:20→21:10)
[2023-03-02] MEDS ORDERED: METHYL SALICYLATE/MENTHOL OINT 30 GM TUBE TP PRN (10:42)
[2023-03-02] MEDS: MELATONIN 5 MG TABLETS PO SCH (21:10)
[2023-03-02] MEDS: MONTELUKAST NA 10 MG TABLET PO SCH (21:10)
[2023-03-02] MEDS: FAMOTIDINE 20 MG TABLET PO SCH (21:10)
[2023-03-02] MEDS: THIAMINE HCL 100 MG TABLET (FP) PO SCH (21:10)
[2023-03-03] MEDS: PRENATAL VITAMINS W/ FOLIC ACID TABLET (FP) PO SCH (09:07)
[2023-03-03] MEDS: ESCITALOPRAM OXALATE 10 MG TABLET PO SCH (09:08)
[2023-03-03] MEDS: LISINOPRIL 20 MG TABLET PO SCH (09:08)
[2023-03-03] MEDS: CHOLECALCIFEROL (VIT D3) 1,000 UNIT (25 MCG) TABLET PO SCH (09:08)
[2023-03-03] MEDS: BACITRACIN 0.9 GM PACKET TP SCH ×2 (09:09→21:17)
[2023-03-03] MEDS: amLODIPine BESYLATE 10 MG TABLET (FP) PO SCH (09:09)
[2023-03-03] MEDS: TAMSULOSIN HCL 0.4 MG CAP PO SCH (09:09)
[2023-03-03] MEDS: NICOTINE 21 MG/24 HOURS TOPICAL PATCH TD SCH (09:10)
[2023-03-03] MEDS: MONTELUKAST NA 10 MG TABLET PO SCH (21:17)
[2023-03-03] MEDS: THIAMINE HCL 100 MG TABLET (FP) PO SCH (21:17)
[2023-03-03] MEDS: FAMOTIDINE 20 MG TABLET PO SCH (21:17)
[2023-03-03] MEDS: MELATONIN 5 MG TABLETS PO SCH (21:17)
[2023-03-04] MEDS: BACITRACIN 0.9 GM PACKET TP SCH ×2 (09:13→21:10)
[2023-03-04] MEDS: PRENATAL VITAMINS W/ FOLIC ACID TABLET (FP) PO SCH (09:14)
[2023-03-04] MEDS: amLODIPine BESYLATE 10 MG TABLET (FP) PO SCH (09:14)
[2023-03-04] MEDS: LISINOPRIL 20 MG TABLET PO SCH (09:14)
[2023-03-04] MEDS: NICOTINE 21 MG/24 HOURS TOPICAL PATCH TD SCH (09:14)
[2023-03-04] MEDS: CHOLECALCIFEROL (VIT D3) 1,000 UNIT (25 MCG) TABLET PO SCH (09:14)
[2023-03-04] MEDS: ESCITALOPRAM OXALATE 10 MG TABLET PO SCH (09:14)
[2023-03-04] MEDS: TAMSULOSIN HCL 0.4 MG CAP PO SCH (09:14)
[2023-03-04] MEDS: THIAMINE HCL 100 MG TABLET (FP) PO SCH (21:10)
[2023-03-04] MEDS: FAMOTIDINE 20 MG TABLET PO SCH (21:10)
[2023-03-04] MEDS: MELATONIN 5 MG TABLETS PO SCH (21:10)
[2023-03-04] MEDS: MONTELUKAST NA 10 MG TABLET PO SCH (21:10)
[2023-03-05] MEDS: PRENATAL VITAMINS W/ FOLIC ACID TABLET (FP) PO SCH (09:03)
[2023-03-05] MEDS: TAMSULOSIN HCL 0.4 MG CAP PO SCH (09:03)
[2023-03-05] MEDS: ESCITALOPRAM OXALATE 10 MG TABLET PO SCH (09:03)
[2023-03-05] MEDS: CHOLECALCIFEROL (VIT D3) 1,000 UNIT (25 MCG) TABLET PO SCH (09:03)
[2023-03-05] MEDS: NICOTINE 21 MG/24 HOURS TOPICAL PATCH TD SCH (09:04)
[2023-03-05] MEDS: amLODIPine BESYLATE 10 MG TABLET (FP) PO SCH (09:04)
[2023-03-05] MEDS: BACITRACIN 0.9 GM PACKET TP SCH ×2 (09:04→21:47)
[2023-03-05] MEDS: LISINOPRIL 20 MG TABLET PO SCH (09:04)
[2023-03-05] MEDS: FAMOTIDINE 20 MG TABLET PO SCH (21:00)
[2023-03-05] MEDS: MELATONIN 5 MG TABLETS PO SCH (21:00)
[2023-03-05] MEDS: THIAMINE HCL 100 MG TABLET (FP) PO SCH (21:00)
[2023-03-05] MEDS: MONTELUKAST NA 10 MG TABLET PO SCH (21:00)
[2023-03-06] MEDS: PRENATAL VITAMINS W/ FOLIC ACID TABLET (FP) PO SCH (09:01)
[2023-03-06] MEDS: TAMSULOSIN HCL 0.4 MG CAP PO SCH (09:02)
[2023-03-06] MEDS: BACITRACIN 0.9 GM PACKET TP SCH ×2 (09:02→21:27)
[2023-03-06] MEDS: CHOLECALCIFEROL (VIT D3) 1,000 UNIT (25 MCG) TABLET PO SCH (09:02)
[2023-03-06] MEDS: LISINOPRIL 20 MG TABLET PO SCH (09:02)
[2023-03-06] MEDS: ESCITALOPRAM OXALATE 10 MG TABLET PO SCH (09:03)
[2023-03-06] MEDS: amLODIPine BESYLATE 10 MG TABLET (FP) PO SCH (09:03)
[2023-03-06] MEDS: NICOTINE 21 MG/24 HOURS TOPICAL PATCH TD SCH (09:04)
[2023-03-06] MEDS: MELATONIN 5 MG TABLETS PO SCH (21:27)
[2023-03-06] MEDS: FAMOTIDINE 20 MG TABLET PO SCH (21:28)
[2023-03-06] MEDS: THIAMINE HCL 100 MG TABLET (FP) PO SCH (21:28)
[2023-03-06] MEDS: MONTELUKAST NA 10 MG TABLET PO SCH (21:28)
[2023-03-07] MEDS: BACITRACIN 0.9 GM PACKET TP SCH ×2 (09:08→21:21)
[2023-03-07] MEDS: ESCITALOPRAM OXALATE 10 MG TABLET PO SCH (09:09)
[2023-03-07] MEDS: PRENATAL VITAMINS W/ FOLIC ACID TABLET (FP) PO SCH (09:09)
[2023-03-07] MEDS: LISINOPRIL 20 MG TABLET PO SCH (09:09)
[2023-03-07] MEDS: TAMSULOSIN HCL 0.4 MG CAP PO SCH (09:09)
[2023-03-07] MEDS: CHOLECALCIFEROL (VIT D3) 1,000 UNIT (25 MCG) TABLET PO SCH (09:09)
[2023-03-07] MEDS: amLODIPine BESYLATE 10 MG TABLET (FP) PO SCH (09:09)
[2023-03-07] MEDS: NICOTINE 21 MG/24 HOURS TOPICAL PATCH TD SCH (09:10)
[2023-03-07] MEDS: MELATONIN 5 MG TABLETS PO SCH (21:21)
[2023-03-07] MEDS: FAMOTIDINE 20 MG TABLET PO SCH (21:21)
[2023-03-07] MEDS: MONTELUKAST NA 10 MG TABLET PO SCH (21:21)
[2023-03-07] MEDS: THIAMINE HCL 100 MG TABLET (FP) PO SCH (21:21)
[2023-03-08] MEDS: amLODIPine BESYLATE 10 MG TABLET (FP) PO SCH (09:09)
[2023-03-08] MEDS: ESCITALOPRAM OXALATE 10 MG TABLET PO SCH (09:09)
[2023-03-08] MEDS: PRENATAL VITAMINS W/ FOLIC ACID TABLET (FP) PO SCH (09:09)
[2023-03-08] MEDS: LISINOPRIL 20 MG TABLET PO SCH (09:09)
[2023-03-08] MEDS: TAMSULOSIN HCL 0.4 MG CAP PO SCH (09:09)
[2023-03-08] MEDS: CHOLECALCIFEROL (VIT D3) 1,000 UNIT (25 MCG) TABLET PO SCH (09:09)
[2023-03-08] MEDS: BACITRACIN 0.9 GM PACKET TP SCH ×2 (09:09→21:03)
[2023-03-08] MEDS: NICOTINE 21 MG/24 HOURS TOPICAL PATCH TD SCH (09:10)
[2023-03-08] MEDS: FAMOTIDINE 20 MG TABLET PO SCH (21:03)
[2023-03-08] MEDS: MELATONIN 5 MG TABLETS PO SCH (21:03)
[2023-03-08] MEDS: THIAMINE HCL 100 MG TABLET (FP) PO SCH (21:03)
[2023-03-08] MEDS: MONTELUKAST NA 10 MG TABLET PO SCH (21:03)
[2023-03-09] MEDS: TAMSULOSIN HCL 0.4 MG CAP PO SCH (09:24)
[2023-03-09] MEDS: BACITRACIN 0.9 GM PACKET TP SCH ×2 (09:27→21:25)
[2023-03-09] MEDS: CHOLECALCIFEROL (VIT D3) 1,000 UNIT (25 MCG) TABLET PO SCH (09:27)
[2023-03-09] MEDS: PRENATAL VITAMINS W/ FOLIC ACID TABLET (FP) PO SCH (09:28)
[2023-03-09] MEDS: ESCITALOPRAM OXALATE 10 MG TABLET PO SCH (09:28)
[2023-03-09] MEDS: LISINOPRIL 20 MG TABLET PO SCH (09:28)
[2023-03-09] MEDS: amLODIPine BESYLATE 10 MG TABLET (FP) PO SCH (09:31)
[2023-03-09] MEDS: NICOTINE 21 MG/24 HOURS TOPICAL PATCH TD SCH (09:32)
[2023-03-09] MEDS: THIAMINE HCL 100 MG TABLET (FP) PO SCH (21:25)
[2023-03-09] MEDS: MELATONIN 5 MG TABLETS PO SCH (21:25)
[2023-03-09] MEDS: FAMOTIDINE 20 MG TABLET PO SCH (21:25)
[2023-03-09] MEDS: MONTELUKAST NA 10 MG TABLET PO SCH (21:25)
[2023-03-10] MEDS: BACITRACIN 0.9 GM PACKET TP SCH ×2 (09:03→21:02)
[2023-03-10] MEDS: PRENATAL VITAMINS W/ FOLIC ACID TABLET (FP) PO SCH (09:03)
[2023-03-10] MEDS: ESCITALOPRAM OXALATE 10 MG TABLET PO SCH (09:03)
[2023-03-10] MEDS: TAMSULOSIN HCL 0.4 MG CAP PO SCH (09:03)
[2023-03-10] MEDS: LISINOPRIL 20 MG TABLET PO SCH (09:03)
[2023-03-10] MEDS: CHOLECALCIFEROL (VIT D3) 1,000 UNIT (25 MCG) TABLET PO SCH (09:04)
[2023-03-10] MEDS: NICOTINE 21 MG/24 HOURS TOPICAL PATCH TD SCH (09:04)
[2023-03-10] MEDS: amLODIPine BESYLATE 10 MG TABLET (FP) PO SCH (09:04)
[2023-03-10] MEDS: FAMOTIDINE 20 MG TABLET PO SCH (21:02)
[2023-03-10] MEDS: THIAMINE HCL 100 MG TABLET (FP) PO SCH (21:02)
[2023-03-10] MEDS: MELATONIN 5 MG TABLETS PO SCH (21:02)
[2023-03-10] MEDS: MONTELUKAST NA 10 MG TABLET PO SCH (21:02)
[2023-03-11] MEDS: CHOLECALCIFEROL (VIT D3) 1,000 UNIT (25 MCG) TABLET PO SCH (09:01)
[2023-03-11] MEDS: NICOTINE 21 MG/24 HOURS TOPICAL PATCH TD SCH (09:01)
[2023-03-11] MEDS: PRENATAL VITAMINS W/ FOLIC ACID TABLET (FP) PO SCH (09:01)
[2023-03-11] MEDS: TAMSULOSIN HCL 0.4 MG CAP PO SCH (09:01)
[2023-03-11] MEDS: ESCITALOPRAM OXALATE 10 MG TABLET PO SCH (09:01)
[2023-03-11] MEDS: LISINOPRIL 20 MG TABLET PO SCH (09:01)
[2023-03-11] MEDS: BACITRACIN 0.9 GM PACKET TP SCH ×2 (09:01→21:02)
[2023-03-11] MEDS: amLODIPine BESYLATE 10 MG TABLET (FP) PO SCH (09:01)
[2023-03-11] MEDS: MONTELUKAST NA 10 MG TABLET PO SCH (21:02)
[2023-03-11] MEDS: FAMOTIDINE 20 MG TABLET PO SCH (21:02)
[2023-03-11] MEDS: MELATONIN 5 MG TABLETS PO SCH (21:03)
[2023-03-11] MEDS: THIAMINE HCL 100 MG TABLET (FP) PO SCH (21:03)
[2023-03-12] MEDS: BACITRACIN 0.9 GM PACKET TP SCH ×2 (09:07→21:22)
[2023-03-12] MEDS: TAMSULOSIN HCL 0.4 MG CAP PO SCH (09:07)
[2023-03-12] MEDS: LISINOPRIL 20 MG TABLET PO SCH (09:07)
[2023-03-12] MEDS: amLODIPine BESYLATE 10 MG TABLET (FP) PO SCH (09:07)
[2023-03-12] MEDS: CHOLECALCIFEROL (VIT D3) 1,000 UNIT (25 MCG) TABLET PO SCH (09:07)
[2023-03-12] MEDS: NICOTINE 21 MG/24 HOURS TOPICAL PATCH TD SCH (09:08)
[2023-03-12] MEDS: PRENATAL VITAMINS W/ FOLIC ACID TABLET (FP) PO SCH (09:08)
[2023-03-12] MEDS: ESCITALOPRAM OXALATE 10 MG TABLET PO SCH (09:08)
[2023-03-12] MEDS: THIAMINE HCL 100 MG TABLET (FP) PO SCH (21:22)
[2023-03-12] MEDS: MONTELUKAST NA 10 MG TABLET PO SCH (21:22)
[2023-03-12] MEDS: FAMOTIDINE 20 MG TABLET PO SCH (21:22)
[2023-03-12] MEDS: MELATONIN 5 MG TABLETS PO SCH (21:22)
[2023-03-13] MEDS: NICOTINE 21 MG/24 HOURS TOPICAL PATCH TD SCH (09:47)
[2023-03-13] MEDS: PRENATAL VITAMINS W/ FOLIC ACID TABLET (FP) PO SCH (09:48)
[2023-03-13] MEDS: CHOLECALCIFEROL (VIT D3) 1,000 UNIT (25 MCG) TABLET PO SCH (09:48)
[2023-03-13] MEDS: TAMSULOSIN HCL 0.4 MG CAP PO SCH (09:48)
[2023-03-13] MEDS: ESCITALOPRAM OXALATE 10 MG TABLET PO SCH (09:48)
[2023-03-13] MEDS: LISINOPRIL 20 MG TABLET PO SCH (09:48)
[2023-03-13] MEDS: amLODIPine BESYLATE 10 MG TABLET (FP) PO SCH (09:48)
[2023-03-13] MEDS: BACITRACIN 0.9 GM PACKET TP SCH ×2 (09:50→21:01)
[2023-03-13] MEDS: MELATONIN 5 MG TABLETS PO SCH (21:01)
[2023-03-13] MEDS: MONTELUKAST NA 10 MG TABLET PO SCH (21:01)
[2023-03-13] MEDS: THIAMINE HCL 100 MG TABLET (FP) PO SCH (21:01)
[2023-03-13] MEDS: FAMOTIDINE 20 MG TABLET PO SCH (21:01)
[2023-03-14] MEDS: CHOLECALCIFEROL (VIT D3) 1,000 UNIT (25 MCG) TABLET PO SCH (09:07)
[2023-03-14] MEDS: amLODIPine BESYLATE 10 MG TABLET (FP) PO SCH (09:07)
[2023-03-14] MEDS: TAMSULOSIN HCL 0.4 MG CAP PO SCH (09:07)
[2023-03-14] MEDS: PRENATAL VITAMINS W/ FOLIC ACID TABLET (FP) PO SCH (09:07)
[2023-03-14] MEDS: ESCITALOPRAM OXALATE 10 MG TABLET PO SCH (09:07)
[2023-03-14] MEDS: BACITRACIN 0.9 GM PACKET TP SCH ×2 (09:08→21:33)
[2023-03-14] MEDS: LISINOPRIL 20 MG TABLET PO SCH (09:08)
[2023-03-14] MEDS: NICOTINE 21 MG/24 HOURS TOPICAL PATCH TD SCH (09:09)
[2023-03-14] MEDS: COLLOIDAL OATMEAL 1 BAR EACH TP PRN (09:10)
[2023-03-14] MEDS: IPRATROPIUM/ALBUTEROL (COMBIVENT) RESPIMAT 20-100 MCG IH PRN (10:41)
[2023-03-14] MEDS: LIDOCAINE 4% PATCH TP SCH (12:49)
[2023-03-14] MEDS: MONTELUKAST NA 10 MG TABLET PO SCH (21:33)
[2023-03-14] MEDS: MELATONIN 5 MG TABLETS PO SCH (21:33)
[2023-03-14] MEDS: FAMOTIDINE 20 MG TABLET PO SCH (21:33)
[2023-03-14] MEDS: THIAMINE HCL 100 MG TABLET (FP) PO SCH (21:33)
[2023-03-14] MEDS: LIDOCAINE PATCH REMOVAL MC SCH (21:34)
[2023-03-15] MEDS: PRENATAL VITAMINS W/ FOLIC ACID TABLET (FP) PO SCH (09:04)
[2023-03-15] MEDS: LIDOCAINE 4% PATCH TP SCH (09:04)
[2023-03-15] MEDS: TAMSULOSIN HCL 0.4 MG CAP PO SCH (09:04)
[2023-03-15] MEDS: ESCITALOPRAM OXALATE 10 MG TABLET PO SCH (09:04)
[2023-03-15] MEDS: LISINOPRIL 20 MG TABLET PO SCH (09:05)
[2023-03-15] MEDS: CHOLECALCIFEROL (VIT D3) 1,000 UNIT (25 MCG) TABLET PO SCH (09:05)
[2023-03-15] MEDS: NICOTINE 21 MG/24 HOURS TOPICAL PATCH TD SCH (09:05)
[2023-03-15] MEDS: BACITRACIN 0.9 GM PACKET TP SCH ×2 (09:05→21:03)
[2023-03-15] MEDS: amLODIPine BESYLATE 10 MG TABLET (FP) PO SCH (09:05)
[2023-03-15] MEDS: THIAMINE HCL 100 MG TABLET (FP) PO SCH (21:03)
[2023-03-15] MEDS: MELATONIN 5 MG TABLETS PO SCH (21:03)
[2023-03-15] MEDS: FAMOTIDINE 20 MG TABLET PO SCH (21:03)
[2023-03-15] MEDS: MONTELUKAST NA 10 MG TABLET PO SCH (21:03)
[2023-03-15] MEDS: BENZOCAINE/MENTHOL (CHLORASEPTIC ) LOZENGE MM PRN (21:04)
[2023-03-15] MEDS: LIDOCAINE PATCH REMOVAL MC SCH (21:04)
[2023-03-16] MEDS: LIDOCAINE 4% PATCH TP SCH (09:05)
[2023-03-16] MEDS: LISINOPRIL 20 MG TABLET PO SCH (09:05)
[2023-03-16] MEDS: TAMSULOSIN HCL 0.4 MG CAP PO SCH (09:05)
[2023-03-16] MEDS: amLODIPine BESYLATE 10 MG TABLET (FP) PO SCH (09:05)
[2023-03-16] MEDS: BACITRACIN 0.9 GM PACKET TP SCH ×2 (09:05→21:09)
[2023-03-16] MEDS: ESCITALOPRAM OXALATE 10 MG TABLET PO SCH (09:05)
[2023-03-16] MEDS: CHOLECALCIFEROL (VIT D3) 1,000 UNIT (25 MCG) TABLET PO SCH (09:05)
[2023-03-16] MEDS: NICOTINE 21 MG/24 HOURS TOPICAL PATCH TD SCH (09:06)
[2023-03-16] MEDS: PRENATAL VITAMINS W/ FOLIC ACID TABLET (FP) PO SCH (09:06)
[2023-03-16] MEDS: BENZOCAINE/MENTHOL (CHLORASEPTIC ) LOZENGE MM PRN ×2 (09:06→21:09)
[2023-03-16] MEDS: BACLOFEN 10 MG TABLET (FP) PO PRN (12:41)
[2023-03-16] MEDS: MELATONIN 5 MG TABLETS PO SCH (21:09)
[2023-03-16] MEDS: THIAMINE HCL 100 MG TABLET (FP) PO SCH (21:09)
[2023-03-16] MEDS: FAMOTIDINE 20 MG TABLET PO SCH (21:09)
[2023-03-16] MEDS: MONTELUKAST NA 10 MG TABLET PO SCH (21:09)
[2023-03-16] MEDS: LIDOCAINE PATCH REMOVAL MC SCH (21:10)
[2023-03-17 07:26] VITALS: RESP 18; TEMP 97.5
[2023-03-17 09:29] VITALS: BP 130/66; PULSE 79
[2023-03-17] MEDS: TAMSULOSIN HCL 0.4 MG CAP PO SCH (09:36)
[2023-03-17] MEDS: ESCITALOPRAM OXALATE 10 MG TABLET PO SCH (09:37)
[2023-03-17] MEDS: CHOLECALCIFEROL (VIT D3) 1,000 UNIT (25 MCG) TABLET PO SCH (09:37)
[2023-03-17] MEDS: amLODIPine BESYLATE 10 MG TABLET (FP) PO SCH (09:37)
[2023-03-17] MEDS: LISINOPRIL 20 MG TABLET PO SCH (09:37)
[2023-03-17] MEDS: LIDOCAINE 4% PATCH TP SCH (09:37)
[2023-03-17] MEDS: BACITRACIN 0.9 GM PACKET TP SCH (09:37)
[2023-03-17] MEDS: PRENATAL VITAMINS W/ FOLIC ACID TABLET (FP) PO SCH (09:37)
[2023-03-17] MEDS: NICOTINE 21 MG/24 HOURS TOPICAL PATCH TD SCH (09:38)
[2023-03-17] MEDS: BACLOFEN 10 MG TABLET (FP) PO PRN (09:39)
[2023-03-17] MEDS: IPRATROPIUM/ALBUTEROL (COMBIVENT) RESPIMAT 20-100 MCG IH PRN (09:43)
[2023-03-17] MEDS: BENZOCAINE/MENTHOL (CHLORASEPTIC ) LOZENGE MM PRN (09:44)
== END 2023-03-17 13:43 | disposition home or self-care (01) | DRG 772 ==
LOC: YASAS 11:09 → Y3W 16:01
PROVIDERS: ADMIT Allergy & Immunology; ATTEND Psychiatry & Neurology Pain Medicine
PROC: HZ42ZZZ Group Counseling for Substance Abuse Treatment, Cognitive-Behavioral (ICD-10-PCS; principal; 2023-02-22)
DX: F14.20 Cocaine dependence, uncomplicated (principal); F10.20 Alcohol dependence, uncomplicated; F17.210 Nicotine dependence, cigarettes, uncomplicated; F32.A Depression, unspecified; F41.9 Anxiety disorder, unspecified; I10 Essential (primary) hypertension; J43.0 Unilateral pulmonary emphysema [MacLeod's syndrome]; K21.9 Gastro-esophageal reflux disease without esophagitis; M62.838 Other muscle spasm; N40.0 Benign prostatic hyperplasia without lower urinary tract symptoms; Z86.11 Personal history of tuberculosis; Z99.89 Dependence on other enabling machines and devices
CPT/HCPCS: 36415; 71045-TC-FY; 80053; 80307; 81003; 83036; 85027; 86780; 87635; J0475; J3535

== ENCOUNTER 2023-04-25 13:17 | Inpatient (IN) | payer OTHER ==
[2023-04-25 15:11] VITALS: BMI 26.6
[2023-04-25] MEDS ORDERED: COLLOIDAL OATMEAL 1 BAR EACH TP PRN (19:30)
[2023-04-25] MEDS ORDERED: MAGNESIUM HYDROX 2400MG/30ML ORAL SUSPENSION 30 ML CUP PO PRN (19:30)
[2023-04-25] MEDS ORDERED: IBUPROFEN 400 MG TABLET (FP) PO PRN (19:30)
[2023-04-25] MEDS ORDERED: P-EPHED 60MG/TRIPROLIDI 2.5MG TABLET PO PRN (19:30)
[2023-04-25] MEDS ORDERED: LOPERAMIDE HCL 2 MG CAPSULE PO PRN (19:30)
[2023-04-25] MEDS ORDERED: NICOTINE POLACRILEX 2 MG LOZENGE BC PRN (19:30)
[2023-04-25] MEDS ORDERED: BENZONATATE 200 MG CAPSULE PO PRN (19:30)
[2023-04-25] MEDS ORDERED: MAG HYDROX/AL HYDROX/SIMETH 30 ML UNIT-DOSE CUP PO PRN (19:30)
[2023-04-25] MEDS ORDERED: DOCUSATE SODIUM 100 MG CAPSULE (FP) PO PRN (19:30)
[2023-04-25] MEDS ORDERED: POLYETHYLENE GLYCOL (HEALTHYLAX) 3350 17 GM PACKET PO PRN (19:30)
[2023-04-25] MEDS ORDERED: BENZOCAINE/MENTHOL (CHLORASEPTIC ) LOZENGE MM PRN (19:30)
[2023-04-25] MEDS ORDERED: ACETAMINOPHEN 325 MG TABLET (FP) PO PRN (19:30)
[2023-04-25] MEDS: FAMOTIDINE 20 MG TABLET PO SCH (21:04)
[2023-04-25] MEDS: THIAMINE HCL 100 MG TABLET (FP) PO SCH (21:04)
[2023-04-25] MEDS: MONTELUKAST NA 10 MG TABLET PO SCH (21:04)
[2023-04-25] MEDS: MELATONIN 5 MG TABLETS PO SCH (21:05)
[2023-04-25] MEDS: LIDOCAINE PATCH REMOVAL MC SCH (22:43)
[2023-04-26] MEDS: NICOTINE 7 MG/24 HOURS TOPICAL PATCH TD SCH (10:04)
[2023-04-26] MEDS: LIDOCAINE 5% TOPICAL PATCH TP SCH (10:04)
[2023-04-26] MEDS: amLODIPine BESYLATE 10 MG TABLET (FP) PO SCH (10:04)
[2023-04-26] MEDS: TAMSULOSIN HCL 0.4 MG CAP PO SCH (10:04)
[2023-04-26] MEDS: PRENATAL VITAMINS W/ FOLIC ACID TABLET (FP) PO SCH (10:04)
[2023-04-26 10:56] LABS: HEMATOCRIT 42.8 % (35.4-49); HEMOGLOBIN 14.1 GM/dL (11.7-16.9); MCH 29.7 pg (25.7-33.7); MEAN CELL VOLUME 89.9 fl (80-96); MEAN PLT VOLUME 7.7 fl (7.5-11.1); PLATELET COUNT 146 10^3/uL (134-434); RBC 4.76 M/mm3 (4.00-5.60); RDW 17.5 % (11.9-15.9); WHITE BLOOD COUNT 3.8 K/mm3 (4.0-10.0)
[2023-04-26 11:05] LABS: POTASSIUM 4.1 mmol/L (3.5-5.1)
[2023-04-26 11:24] LABS: ALBUMIN 3.4 g/dl (3.4-5.0); BLOOD UREA NITROGEN 10.8 mg/dL (7-18); CALCIUM 8.7 mg/dL (8.5-10.1)
[2023-04-26 11:28] LABS: BILIRUBIN,TOTAL 0.5 mg/dL (0.2-1); TOT PROT 6.3 g/dl (6.4-8.2)
[2023-04-26 15:36] LABS: PH,URINE 5.5 (5.0-8.0); URINE APPEARANCE CLEAR; URINE BILIRUBIN NEGATIVE (NEGATIVE); URINE COLOR YELLOW; URINE GLUCOSE (UA) NEGATIVE (NEGATIVE); URINE KETONE NEGATIVE (NEGATIVE); URINE LEUK ESTERASE NEGATIVE (NEGATIVE); URINE NITRITE NEGATIVE (NEGATIVE); URINE PROTEIN NEGATIVE (NEGATIVE); URINE UROBILINOGEN 0.2 mg/dL (0.2-1.0)
[2023-04-26] MEDS: ALBUTEROL SO4 HFA INHALER IH PRN (21:05)
[2023-04-26] MEDS: MONTELUKAST NA 10 MG TABLET PO SCH (21:06)
[2023-04-26] MEDS: FAMOTIDINE 20 MG TABLET PO SCH (21:06)
[2023-04-26] MEDS: MELATONIN 5 MG TABLETS PO SCH (21:06)
[2023-04-26] MEDS: LIDOCAINE PATCH REMOVAL MC SCH (21:07)
[2023-04-26] MEDS: THIAMINE HCL 100 MG TABLET (FP) PO SCH (21:07)
[2023-04-27] MEDS: guaiFENesin 600 MG TABLET.ER (FP) PO PRN ×2 (06:36→21:11)
[2023-04-27] MEDS: amLODIPine BESYLATE 10 MG TABLET (FP) PO SCH (09:52)
[2023-04-27] MEDS: PRENATAL VITAMINS W/ FOLIC ACID TABLET (FP) PO SCH (09:52)
[2023-04-27] MEDS: ESCITALOPRAM OXALATE 20 MG TABLET PO SCH (09:52)
[2023-04-27] MEDS: NICOTINE 7 MG/24 HOURS TOPICAL PATCH TD SCH (09:53)
[2023-04-27] MEDS: LIDOCAINE 5% TOPICAL PATCH TP SCH (09:53)
[2023-04-27] MEDS: TAMSULOSIN HCL 0.4 MG CAP PO SCH (09:53)
[2023-04-27] MEDS ORDERED: amLODIPine BESYLATE 10 MG TABLET (FP) PO SCH (10:15)
[2023-04-27] MEDS: LISINOPRIL 20 MG TABLET PO SCH (12:05)
[2023-04-27] MEDS: SALICYLIC ACID (WART REMOVER) 9 ML LIQUID TP SCH (12:05)
[2023-04-27] MEDS: ALBUTEROL SO4 HFA INHALER IH PRN (12:07)
[2023-04-27] MEDS: FAMOTIDINE 20 MG TABLET PO SCH (21:11)
[2023-04-27] MEDS: THIAMINE HCL 100 MG TABLET (FP) PO SCH (21:11)
[2023-04-27] MEDS: MONTELUKAST NA 10 MG TABLET PO SCH (21:11)
[2023-04-27] MEDS: MELATONIN 5 MG TABLETS PO SCH (21:11)
[2023-04-27] MEDS: LIDOCAINE PATCH REMOVAL MC SCH (21:11)
[2023-04-28] MEDS: amLODIPine BESYLATE 10 MG TABLET (FP) PO SCH (06:28)
[2023-04-28] MEDS: PRENATAL VITAMINS W/ FOLIC ACID TABLET (FP) PO SCH (10:11)
[2023-04-28] MEDS: LISINOPRIL 20 MG TABLET PO SCH (10:12)
[2023-04-28] MEDS: LIDOCAINE 5% TOPICAL PATCH TP SCH (10:12)
[2023-04-28] MEDS: NICOTINE 7 MG/24 HOURS TOPICAL PATCH TD SCH (10:12)
[2023-04-28] MEDS: ESCITALOPRAM OXALATE 20 MG TABLET PO SCH (10:12)
[2023-04-28] MEDS: TAMSULOSIN HCL 0.4 MG CAP PO SCH (10:12)
[2023-04-28] MEDS: SALICYLIC ACID (WART REMOVER) 9 ML LIQUID TP SCH (10:12)
[2023-04-28] MEDS: guaiFENesin 600 MG TABLET.ER (FP) PO PRN (10:14)
[2023-04-28] MEDS: THIAMINE HCL 100 MG TABLET (FP) PO SCH (21:02)
[2023-04-28] MEDS: MELATONIN 5 MG TABLETS PO SCH (21:02)
[2023-04-28] MEDS: MONTELUKAST NA 10 MG TABLET PO SCH (21:02)
[2023-04-28] MEDS: FAMOTIDINE 20 MG TABLET PO SCH (21:02)
[2023-04-28] MEDS: LIDOCAINE PATCH REMOVAL MC SCH (21:03)
[2023-04-29] MEDS: amLODIPine BESYLATE 10 MG TABLET (FP) PO SCH (06:24)
[2023-04-29] MEDS: guaiFENesin 600 MG TABLET.ER (FP) PO PRN ×2 (06:25→21:05)
[2023-04-29] MEDS: PRENATAL VITAMINS W/ FOLIC ACID TABLET (FP) PO SCH (10:02)
[2023-04-29] MEDS: LIDOCAINE 5% TOPICAL PATCH TP SCH (10:03)
[2023-04-29] MEDS: NICOTINE 7 MG/24 HOURS TOPICAL PATCH TD SCH (10:03)
[2023-04-29] MEDS: SALICYLIC ACID (WART REMOVER) 9 ML LIQUID TP SCH (10:03)
[2023-04-29] MEDS: LISINOPRIL 20 MG TABLET PO SCH (10:03)
[2023-04-29] MEDS: ESCITALOPRAM OXALATE 20 MG TABLET PO SCH (10:03)
[2023-04-29] MEDS: TAMSULOSIN HCL 0.4 MG CAP PO SCH (10:03)
[2023-04-29] MEDS: FAMOTIDINE 20 MG TABLET PO SCH (21:05)
[2023-04-29] MEDS: MELATONIN 5 MG TABLETS PO SCH (21:05)
[2023-04-29] MEDS: THIAMINE HCL 100 MG TABLET (FP) PO SCH (21:05)
[2023-04-29] MEDS: LIDOCAINE PATCH REMOVAL MC SCH (21:06)
[2023-04-29] MEDS: MONTELUKAST NA 10 MG TABLET PO SCH (21:40)
[2023-04-30] MEDS: amLODIPine BESYLATE 10 MG TABLET (FP) PO SCH (06:38)
[2023-04-30] MEDS: guaiFENesin 600 MG TABLET.ER (FP) PO PRN ×2 (06:39→21:08)
[2023-04-30 07:10] VITALS: RESP 18
[2023-04-30] MEDS: PRENATAL VITAMINS W/ FOLIC ACID TABLET (FP) PO SCH (09:53)
[2023-04-30] MEDS: TAMSULOSIN HCL 0.4 MG CAP PO SCH (09:53)
[2023-04-30] MEDS: LISINOPRIL 20 MG TABLET PO SCH (09:53)
[2023-04-30] MEDS: ESCITALOPRAM OXALATE 20 MG TABLET PO SCH (09:53)
[2023-04-30] MEDS: LIDOCAINE 5% TOPICAL PATCH TP SCH (09:54)
[2023-04-30] MEDS: NICOTINE 7 MG/24 HOURS TOPICAL PATCH TD SCH (09:54)
[2023-04-30] MEDS: SALICYLIC ACID (WART REMOVER) 9 ML LIQUID TP SCH (09:55)
[2023-04-30] MEDS: FAMOTIDINE 20 MG TABLET PO SCH (21:06)
[2023-04-30] MEDS: THIAMINE HCL 100 MG TABLET (FP) PO SCH (21:06)
[2023-04-30] MEDS: MONTELUKAST NA 10 MG TABLET PO SCH (21:06)
[2023-04-30] MEDS: LIDOCAINE PATCH REMOVAL MC SCH (21:06)
[2023-04-30] MEDS: MELATONIN 5 MG TABLETS PO SCH (21:07)
[2023-05-01] MEDS: amLODIPine BESYLATE 10 MG TABLET (FP) PO SCH (06:11)
[2023-05-01] MEDS: TAMSULOSIN HCL 0.4 MG CAP PO SCH (09:15)
[2023-05-01] MEDS: PRENATAL VITAMINS W/ FOLIC ACID TABLET (FP) PO SCH (09:56)
[2023-05-01] MEDS: ESCITALOPRAM OXALATE 20 MG TABLET PO SCH (09:56)
[2023-05-01] MEDS: LISINOPRIL 20 MG TABLET PO SCH (09:56)
[2023-05-01] MEDS: IBUPROFEN 600 MG TABLET (FP) PO PRN (09:58)
[2023-05-01] MEDS: LIDOCAINE 5% TOPICAL PATCH TP SCH (10:01)
[2023-05-01] MEDS: NICOTINE 7 MG/24 HOURS TOPICAL PATCH TD SCH (10:01)
[2023-05-01] MEDS: SALICYLIC ACID (WART REMOVER) 9 ML LIQUID TP SCH (10:02)
[2023-05-01] MEDS: FAMOTIDINE 20 MG TABLET PO SCH (21:04)
[2023-05-01] MEDS: MELATONIN 5 MG TABLETS PO SCH (21:04)
[2023-05-01] MEDS: THIAMINE HCL 100 MG TABLET (FP) PO SCH (21:04)
[2023-05-01] MEDS: MONTELUKAST NA 10 MG TABLET PO SCH (21:04)
[2023-05-01] MEDS: LIDOCAINE PATCH REMOVAL MC SCH (21:32)
[2023-05-02] MEDS: amLODIPine BESYLATE 10 MG TABLET (FP) PO SCH (06:14)
[2023-05-02] MEDS ORDERED: ESCITALOPRAM OXALATE 10 MG TABLET ONE (08:30)
[2023-05-02] MEDS: TAMSULOSIN HCL 0.4 MG CAP PO SCH (09:57)
[2023-05-02] MEDS: LISINOPRIL 20 MG TABLET PO SCH (09:57)
[2023-05-02] MEDS: PRENATAL VITAMINS W/ FOLIC ACID TABLET (FP) PO SCH (09:58)
[2023-05-02] MEDS: SALICYLIC ACID (WART REMOVER) 9 ML LIQUID TP SCH (09:58)
[2023-05-02] MEDS: ESCITALOPRAM OXALATE 20 MG TABLET PO SCH (09:58)
[2023-05-02] MEDS: NICOTINE 7 MG/24 HOURS TOPICAL PATCH TD SCH (09:58)
[2023-05-02] MEDS: LIDOCAINE 5% TOPICAL PATCH TP SCH (09:58)
[2023-05-02] MEDS: THIAMINE HCL 100 MG TABLET (FP) PO SCH (21:08)
[2023-05-02] MEDS: FAMOTIDINE 20 MG TABLET PO SCH (21:08)
[2023-05-02] MEDS: MONTELUKAST NA 10 MG TABLET PO SCH (21:08)
[2023-05-02] MEDS: MELATONIN 5 MG TABLETS PO SCH (21:08)
[2023-05-02] MEDS: LIDOCAINE PATCH REMOVAL MC SCH (21:37)
[2023-05-03] MEDS: amLODIPine BESYLATE 10 MG TABLET (FP) PO SCH (06:00)
[2023-05-03] MEDS: PRENATAL VITAMINS W/ FOLIC ACID TABLET (FP) PO SCH (10:03)
[2023-05-03] MEDS: ESCITALOPRAM OXALATE 20 MG TABLET PO SCH (10:03)
[2023-05-03] MEDS: LISINOPRIL 20 MG TABLET PO SCH (10:03)
[2023-05-03] MEDS: BACLOFEN 10 MG TABLET (FP) PO PRN (10:03)
[2023-05-03] MEDS: TAMSULOSIN HCL 0.4 MG CAP PO SCH (10:03)
[2023-05-03] MEDS: SALICYLIC ACID (WART REMOVER) 9 ML LIQUID TP SCH (10:04)
[2023-05-03] MEDS: ALBUTEROL SO4 HFA INHALER IH PRN (10:04)
[2023-05-03] MEDS: NICOTINE 7 MG/24 HOURS TOPICAL PATCH TD SCH (10:04)
[2023-05-03] MEDS: LIDOCAINE 5% TOPICAL PATCH TP SCH (10:05)
[2023-05-03] MEDS: guaiFENesin 600 MG TABLET.ER (FP) PO PRN (10:06)
[2023-05-03] MEDS: MONTELUKAST NA 10 MG TABLET PO SCH (21:07)
[2023-05-03] MEDS: LIDOCAINE PATCH REMOVAL MC SCH (21:10)
[2023-05-03] MEDS: MELATONIN 5 MG TABLETS PO SCH (21:11)
[2023-05-03] MEDS: FAMOTIDINE 20 MG TABLET PO SCH (21:11)
[2023-05-03] MEDS: THIAMINE HCL 100 MG TABLET (FP) PO SCH (21:11)
[2023-05-04] MEDS: amLODIPine BESYLATE 10 MG TABLET (FP) PO SCH (05:59)
[2023-05-04] MEDS: LISINOPRIL 20 MG TABLET PO SCH (10:13)
[2023-05-04] MEDS: TAMSULOSIN HCL 0.4 MG CAP PO SCH (10:13)
[2023-05-04] MEDS: NICOTINE 7 MG/24 HOURS TOPICAL PATCH TD SCH (10:14)
[2023-05-04] MEDS: LIDOCAINE 5% TOPICAL PATCH TP SCH (10:14)
[2023-05-04] MEDS: ESCITALOPRAM OXALATE 20 MG TABLET PO SCH (10:14)
[2023-05-04] MEDS: PRENATAL VITAMINS W/ FOLIC ACID TABLET (FP) PO SCH (10:14)
[2023-05-04] MEDS: SALICYLIC ACID (WART REMOVER) 9 ML LIQUID TP SCH (10:18)
[2023-05-04] MEDS: MELATONIN 5 MG TABLETS PO SCH (21:14)
[2023-05-04] MEDS: LIDOCAINE PATCH REMOVAL MC SCH (21:14)
[2023-05-04] MEDS: THIAMINE HCL 100 MG TABLET (FP) PO SCH (21:15)
[2023-05-04] MEDS: MONTELUKAST NA 10 MG TABLET PO SCH (21:15)
[2023-05-04] MEDS: FAMOTIDINE 20 MG TABLET PO SCH (21:15)
[2023-05-05] MEDS: amLODIPine BESYLATE 10 MG TABLET (FP) PO SCH (06:16)
[2023-05-05] MEDS: BACLOFEN 10 MG TABLET (FP) PO PRN ×2 (10:18→21:13)
[2023-05-05] MEDS: PRENATAL VITAMINS W/ FOLIC ACID TABLET (FP) PO SCH (10:18)
[2023-05-05] MEDS: TAMSULOSIN HCL 0.4 MG CAP PO SCH (10:18)
[2023-05-05] MEDS: ESCITALOPRAM OXALATE 20 MG TABLET PO SCH (10:18)
[2023-05-05] MEDS: LISINOPRIL 20 MG TABLET PO SCH (10:18)
[2023-05-05] MEDS: NICOTINE 7 MG/24 HOURS TOPICAL PATCH TD SCH (10:20)
[2023-05-05] MEDS: LIDOCAINE 5% TOPICAL PATCH TP SCH (10:20)
[2023-05-05] MEDS: guaiFENesin 600 MG TABLET.ER (FP) PO PRN (10:21)
[2023-05-05] MEDS: LIDOCAINE PATCH REMOVAL MC SCH (21:09)
[2023-05-05] MEDS: MONTELUKAST NA 10 MG TABLET PO SCH (21:09)
[2023-05-05] MEDS: MELATONIN 5 MG TABLETS PO SCH (21:09)
[2023-05-05] MEDS: THIAMINE HCL 100 MG TABLET (FP) PO SCH (21:10)
[2023-05-05] MEDS: FAMOTIDINE 20 MG TABLET PO SCH (21:10)
[2023-05-05] MEDS: IBUPROFEN 600 MG TABLET (FP) PO PRN (21:13)
[2023-05-06] MEDS: amLODIPine BESYLATE 10 MG TABLET (FP) PO SCH (06:08)
[2023-05-06 07:30] VITALS: TEMP 97.6
[2023-05-06] MEDS: LISINOPRIL 20 MG TABLET PO SCH (10:00)
[2023-05-06] MEDS: TAMSULOSIN HCL 0.4 MG CAP PO SCH (10:00)
[2023-05-06] MEDS: ESCITALOPRAM OXALATE 20 MG TABLET PO SCH (10:00)
[2023-05-06] MEDS: PRENATAL VITAMINS W/ FOLIC ACID TABLET (FP) PO SCH (10:01)
[2023-05-06] MEDS: LIDOCAINE 5% TOPICAL PATCH TP SCH (10:01)
[2023-05-06] MEDS: NICOTINE 7 MG/24 HOURS TOPICAL PATCH TD SCH (10:01)
[2023-05-06 11:02] VITALS: BP 126/67; PULSE 82
== END 2023-05-06 11:22 | disposition home or self-care (01) | DRG 772 ==
LOC: YASAS 13:17 → Y5N 20:11
PROVIDERS: ADMIT Allergy & Immunology; ATTEND Psychiatry & Neurology Pain Medicine
PROC: HZ42ZZZ Group Counseling for Substance Abuse Treatment, Cognitive-Behavioral (ICD-10-PCS; principal; 2023-04-25)
DX: F10.20 Alcohol dependence, uncomplicated (principal); F14.120 Cocaine abuse with intoxication, uncomplicated; F17.210 Nicotine dependence, cigarettes, uncomplicated; F19.24 Other psychoactive substance dependence with psychoactive substance-induced mood disorder; F41.9 Anxiety disorder, unspecified; F32.A Depression, unspecified; I10 Essential (primary) hypertension; J43.0 Unilateral pulmonary emphysema [MacLeod's syndrome]; K21.9 Gastro-esophageal reflux disease without esophagitis; L84 Corns and callosities; M54.50 Low back pain, unspecified; G89.29 Other chronic pain; N40.0 Benign prostatic hyperplasia without lower urinary tract symptoms; R05.9 Cough, unspecified; Z62.810 Personal history of physical and sexual abuse in childhood
CPT/HCPCS: 0241U-QW; 36415; 80053; 81003; 85027; 86780; 87635; J0475

== ENCOUNTER 2023-07-15 13:49 | Inpatient (IN) | payer OTHER ==
[2023-07-15 14:39] VITALS: BMI 26.6
[2023-07-15] MEDS ORDERED: LOPERAMIDE HCL 2 MG CAPSULE PO PRN (16:32)
[2023-07-15] MEDS ORDERED: POLYETHYLENE GLYCOL (HEALTHYLAX) 3350 17 GM PACKET PO PRN (16:32)
[2023-07-15] MEDS ORDERED: IBUPROFEN 600 MG TABLET (FP) PO PRN (16:32)
[2023-07-15] MEDS ORDERED: ACETAMINOPHEN 325 MG TABLET (FP) PO PRN (16:32)
[2023-07-15] MEDS ORDERED: BENZONATATE 200 MG CAPSULE PO PRN (16:32)
[2023-07-15] MEDS ORDERED: IBUPROFEN 400 MG TABLET (FP) PO PRN (16:32)
[2023-07-15] MEDS ORDERED: DOCUSATE SODIUM 100 MG CAPSULE (FP) PO PRN (16:32)
[2023-07-15] MEDS ORDERED: NICOTINE POLACRILEX 2 MG GUM BUC PRN (16:32)
[2023-07-15] MEDS ORDERED: MAG HYDROX/AL HYDROX/SIMETH 30 ML UNIT-DOSE CUP PO PRN (16:32)
[2023-07-15] MEDS ORDERED: MAGNESIUM HYDROX 2400MG/30ML ORAL SUSPENSION 30 ML CUP PO PRN (16:32)
[2023-07-15] MEDS: LISINOPRIL 20 MG TABLET PO ONE (18:50)
[2023-07-15 19:15] LABS: PH,URINE 5.5 (5.0-8.0); URINE APPEARANCE CLEAR; URINE BILIRUBIN NEGATIVE (NEGATIVE); URINE COLOR YELLOW; URINE GLUCOSE (UA) NEGATIVE (NEGATIVE); URINE KETONE NEGATIVE (NEGATIVE); URINE LEUK ESTERASE NEGATIVE (NEGATIVE); URINE NITRITE NEGATIVE (NEGATIVE); URINE PROTEIN NEGATIVE (NEGATIVE)
[2023-07-15] MEDS: ALBUTEROL SO4 HFA INHALER IH PRN (22:33)
[2023-07-15] MEDS: hydrOXYzine PAMOATE 25 MG CAPSULE (FP) PO PRN (22:35)
[2023-07-15] MEDS: guaiFENesin 600 MG TABLET.ER (FP) PO PRN (22:35)
[2023-07-15] MEDS: FAMOTIDINE 20 MG TABLET PO SCH (22:35)
[2023-07-15] MEDS: THIAMINE HCL 100 MG TABLET (FP) PO SCH (22:35)
[2023-07-15] MEDS: MONTELUKAST NA 10 MG TABLET PO SCH (22:35)
[2023-07-15] MEDS: MELATONIN 5 MG TABLETS PO SCH (22:35)
[2023-07-15] MEDS: LIDOCAINE PATCH REMOVAL MC SCH (22:36)
[2023-07-16] MEDS: amLODIPine BESYLATE 10 MG TABLET (FP) PO SCH (06:36)
[2023-07-16] MEDS: BENZOCAINE/MENTHOL (CHLORASEPTIC ) LOZENGE MM PRN (06:38)
[2023-07-16] MEDS: PRENATAL VITAMINS W/ FOLIC ACID TABLET (FP) PO SCH (09:15)
[2023-07-16] MEDS: TAMSULOSIN HCL 0.4 MG CAP PO SCH (09:16)
[2023-07-16] MEDS: LISINOPRIL 20 MG TABLET PO SCH (10:32)
[2023-07-16] MEDS: LIDOCAINE 5% TOPICAL PATCH TP SCH (10:32)
[2023-07-16 15:00] LABS: POTASSIUM 4.1 mmol/L (3.5-5.1)
[2023-07-16 15:03] LABS: BLOOD UREA NITROGEN 14.4 mg/dL (7-18); CALCIUM 9.1 mg/dL (8.5-10.1)
[2023-07-16 15:04] LABS: ALBUMIN 3.3 g/dl (3.4-5.0)
[2023-07-16 15:06] LABS: HEMATOCRIT 39.6 % (35.4-49); HEMOGLOBIN 13.4 GM/dL (11.7-16.9); MCH 30.3 pg (25.7-33.7); MCHC 33.8 g/dl (32.0-35.9); MEAN CELL VOLUME 89.9 fl (80-96); MEAN PLT VOLUME 8.8 fl (7.5-11.1); RDW 17.5 % (11.9-15.9); WHITE BLOOD COUNT 6.2 K/mm3 (4.0-10.0)
[2023-07-16 15:08] LABS: BILIRUBIN,TOTAL 0.5 mg/dL (0.2-1); TOT PROT 6.3 g/dl (6.4-8.2)
[2023-07-16 15:45] LABS: PLATELET COUNT 157 10^3/uL (134-434)
[2023-07-17] MEDS: ESCITALOPRAM OXALATE 10 MG TABLET PO SCH (10:24)
[2023-07-19] MEDS ORDERED: cloNIDine HCL 0.1 MG TABLET PO PRN (15:16)
[2023-07-19] MEDS: P-EPHED 60MG/TRIPROLIDI 2.5MG TABLET PO PRN (21:15)
[2023-07-20] MEDS: LISINOPRIL 20 MG TABLET PO SCH (06:40)
[2023-07-25] MEDS: diphenhydrAMINE HCL 25 MG CAPSULE (FP) PO PRN (21:07)
[2023-07-27] MEDS: LIDOCAINE 5% TOPICAL PATCH TP PRN (09:47)
[2023-07-28 06:41] VITALS: RESP 20; TEMP 98
[2023-07-28 09:37] VITALS: BP 133/69; PULSE 83
== END 2023-07-28 09:08 | disposition home or self-care (01) | DRG 772 ==
LOC: YASAS 13:49 → Y3NR 17:33 → Y3E 07-17 11:12
PROVIDERS: ADMIT Allergy & Immunology; ATTEND Psychiatry & Neurology Pain Medicine
PROC: HZ42ZZZ Group Counseling for Substance Abuse Treatment, Cognitive-Behavioral (ICD-10-PCS; principal; 2023-07-15)
DX: F10.20 Alcohol dependence, uncomplicated (principal); F14.20 Cocaine dependence, uncomplicated; F17.210 Nicotine dependence, cigarettes, uncomplicated; F19.24 Other psychoactive substance dependence with psychoactive substance-induced mood disorder; F41.9 Anxiety disorder, unspecified; F32.A Depression, unspecified; G47.00 Insomnia, unspecified; I10 Essential (primary) hypertension; J43.0 Unilateral pulmonary emphysema [MacLeod's syndrome]; J41.0 Simple chronic bronchitis; K21.9 Gastro-esophageal reflux disease without esophagitis; M54.50 Low back pain, unspecified; G89.29 Other chronic pain; N40.0 Benign prostatic hyperplasia without lower urinary tract symptoms; R76.11 Nonspecific reaction to tuberculin skin test without active tuberculosis; Z86.59 Personal history of other mental and behavioral disorders; Z62.810 Personal history of physical and sexual abuse in childhood
CPT/HCPCS: 36415; 71045-TC-FY; 80053; 80305; 80307; 81003; 83036; 85027; 86780

== ENCOUNTER 2023-10-17 11:17 | Inpatient (IN) | payer OTHER ==
[2023-10-17 11:41] VITALS: BMI 24.4
[2023-10-17] MEDS ORDERED: NICOTINE POLACRILEX 2 MG GUM BUC PRN (12:01)
[2023-10-17] MEDS ORDERED: IBUPROFEN 600 MG TABLET (FP) PO PRN (12:01)
[2023-10-17] MEDS ORDERED: POLYETHYLENE GLYCOL (HEALTHYLAX) 3350 17 GM PACKET PO PRN (12:01)
[2023-10-17] MEDS ORDERED: NICOTINE POLACRILEX 2 MG LOZENGE BC PRN (12:01)
[2023-10-17] MEDS ORDERED: ACETAMINOPHEN 325 MG TABLET (FP) PO PRN (12:01)
[2023-10-17] MEDS ORDERED: IBUPROFEN 400 MG TABLET (FP) PO PRN (12:01)
[2023-10-17] MEDS ORDERED: hydrOXYzine PAMOATE 25 MG CAPSULE (FP) PO PRN (12:01)
[2023-10-17] MEDS ORDERED: MAG HYDROX/AL HYDROX/SIMETH 30 ML UNIT-DOSE CUP PO PRN (12:01)
[2023-10-17] MEDS ORDERED: guaiFENesin 600 MG TABLET.ER (FP) PO PRN (12:01)
[2023-10-17] MEDS ORDERED: LOPERAMIDE HCL 2 MG CAPSULE PO PRN (12:01)
[2023-10-17] MEDS ORDERED: P-EPHED 60MG/TRIPROLIDI 2.5MG TABLET PO PRN (12:01)
[2023-10-17] MEDS ORDERED: MAGNESIUM HYDROX 2400MG/30ML ORAL SUSPENSION 30 ML CUP PO PRN (12:01)
[2023-10-17] MEDS: THIAMINE 100 MG TABLET PO SCH (21:10)
[2023-10-17] MEDS: MELATONIN 5 MG TABLETS PO SCH (21:10)
[2023-10-17] MEDS: MONTELUKAST NA 10 MG TABLET PO SCH (21:10)
[2023-10-18] MEDS: TAMSULOSIN HCL 0.4 MG CAP PO SCH (07:32)
[2023-10-18] MEDS: PRENATAL VITAMINS W/ FOLIC ACID TABLET (FP) PO SCH (10:32)
[2023-10-18] MEDS ORDERED: ESCITALOPRAM OXALATE 10 MG TABLET ONE (11:57)
[2023-10-18] MEDS: ESCITALOPRAM OXALATE 20 MG TABLET PO SCH (11:58)
[2023-10-18] MEDS: BENZOCAINE/MENTHOL (CHLORASEPTIC ) LOZENGE MM PRN (12:00)
[2023-10-18] MEDS: BENZONATATE 200 MG CAPSULE PO PRN (12:00)
[2023-10-18] MEDS ORDERED: LIDOCAINE 5% TOPICAL PATCH TP PRN (12:30)
[2023-10-18] MEDS: amLODIPine BESYLATE 10 MG TABLET (FP) PO SCH (13:24)
[2023-10-18] MEDS: LISINOPRIL 20 MG TABLET PO SCH (13:24)
[2023-10-18 14:49] LABS: POTASSIUM 3.9 mmol/L (3.5-5.1)
[2023-10-18 14:53] LABS: CALCIUM 8.5 mg/dL (8.5-10.1)
[2023-10-18 14:54] LABS: BLOOD UREA NITROGEN 10.9 mg/dL (7-18)
[2023-10-18 14:57] LABS: CREATININE 0.9 mg/dL (0.55-1.3); HEMATOCRIT 36.3 % (35.4-49); HEMOGLOBIN 12.5 GM/dL (11.7-16.9); MCH 30.2 pg (25.7-33.7); MCHC 34.6 g/dl (32.0-35.9); MEAN CELL VOLUME 87.5 fl (80-96); MEAN PLT VOLUME 6.9 fl (7.5-11.1); PLATELET COUNT 160 10^3/uL (134-434); RBC 4.14 M/mm3 (4.00-5.60); WHITE BLOOD COUNT 3.5 K/mm3 (4.0-10.0)
[2023-10-18 14:59] LABS: BILIRUBIN,TOTAL 0.5 mg/dL (0.2-1); TOT PROT 5.7 g/dl (6.4-8.2)
[2023-10-18 17:24] LABS: URINE APPEARANCE CLEAR; URINE BILIRUBIN NEGATIVE (NEGATIVE); URINE COLOR YELLOW; URINE GLUCOSE (UA) NEGATIVE (NEGATIVE); URINE KETONE NEGATIVE (NEGATIVE); URINE LEUK ESTERASE NEGATIVE (NEGATIVE); URINE NITRITE NEGATIVE (NEGATIVE); URINE PROTEIN NEGATIVE (NEGATIVE)
[2023-10-18] MEDS: LIDOCAINE PATCH REMOVAL MC SCH (21:40)
[2023-10-18] MEDS: FAMOTIDINE 20 MG TABLET PO SCH (21:40)
[2023-10-21] MEDS: ALBUTEROL SO4 HFA INHALER IH PRN (17:51)
[2023-10-21] MEDS: LISINOPRIL 20 MG TABLET PO SCH (21:35)
[2023-10-22] MEDS ORDERED: ESCITALOPRAM OXALATE 10 MG TABLET ONE (08:11)
[2023-10-23] MEDS ORDERED: ESCITALOPRAM OXALATE 10 MG TABLET ONE (08:20)
[2023-10-25] MEDS ORDERED: ESCITALOPRAM OXALATE 10 MG TABLET ONE (10:14)
[2023-10-26] MEDS ORDERED: ESCITALOPRAM OXALATE 10 MG TABLET ONE (09:45)
[2023-10-29] MEDS ORDERED: ESCITALOPRAM OXALATE 10 MG TABLET ONE (09:31)
[2023-10-30] MEDS ORDERED: ESCITALOPRAM OXALATE 10 MG TABLET ONE (09:04)
[2023-10-31] MEDS: BACITRACIN 0.9 GM PACKET TP SCH (21:05)
[2023-11-01] MEDS ORDERED: ESCITALOPRAM OXALATE 10 MG TABLET ONE (09:12)
[2023-11-05] MEDS ORDERED: ESCITALOPRAM OXALATE 10 MG TABLET ONE (09:56)
[2023-11-06] MEDS ORDERED: ESCITALOPRAM OXALATE 10 MG TABLET ONE (08:15)
[2023-11-07] MEDS ORDERED: ESCITALOPRAM OXALATE 10 MG TABLET ONE (09:19)
[2023-11-08] MEDS ORDERED: ESCITALOPRAM OXALATE 10 MG TABLET ONE (10:16)
[2023-11-09] MEDS ORDERED: ESCITALOPRAM OXALATE 10 MG TABLET ONE (09:36)
[2023-11-09] MEDS: ALBUTEROL SO4 2.5/IPRATROPIUM 0.5 INH SOL 3 ML VIAL.NEB. NEB SCH (21:19)
[2023-11-10] MEDS ORDERED: ESCITALOPRAM OXALATE 10 MG TABLET ONE (08:32)
[2023-11-11] MEDS ORDERED: ESCITALOPRAM OXALATE 10 MG TABLET ONE (08:41)
[2023-11-12] MEDS ORDERED: ESCITALOPRAM OXALATE 10 MG TABLET ONE (08:51)
[2023-11-13] MEDS ORDERED: ESCITALOPRAM OXALATE 10 MG TABLET ONE (09:34)
[2023-11-14 06:10] VITALS: RESP 18; TEMP 97.7
[2023-11-14] MEDS ORDERED: ESCITALOPRAM OXALATE 10 MG TABLET ONE (08:56)
[2023-11-14 09:10] VITALS: BP 109/69; PULSE 88
== END 2023-11-14 09:24 | disposition home or self-care (01) | DRG 772 ==
LOC: YASAS 11:17 → Y3W 13:43
PROVIDERS: ADMIT Allergy & Immunology; ATTEND Psychiatry & Neurology Pain Medicine
PROC: HZ42ZZZ Group Counseling for Substance Abuse Treatment, Cognitive-Behavioral (ICD-10-PCS; principal; 2023-10-17)
DX: F10.20 Alcohol dependence, uncomplicated (principal); F14.20 Cocaine dependence, uncomplicated; F17.210 Nicotine dependence, cigarettes, uncomplicated; F41.9 Anxiety disorder, unspecified; F32.A Depression, unspecified; I10 Essential (primary) hypertension; J44.9 Chronic obstructive pulmonary disease, unspecified; J41.0 Simple chronic bronchitis; K21.9 Gastro-esophageal reflux disease without esophagitis; J30.9 Allergic rhinitis, unspecified; M54.50 Low back pain, unspecified; G89.29 Other chronic pain; N40.0 Benign prostatic hyperplasia without lower urinary tract symptoms
CPT/HCPCS: 0241U-QW; 36415; 80053; 80305; 80307; 81003; 85027; 87811; 94640

== ENCOUNTER 2024-02-01 13:27 | Inpatient (IN) | payer OTHER ==
[2024-02-01 14:18] VITALS: BMI 26.8
[2024-02-01] MEDS ORDERED: IBUPROFEN 400 MG TABLET (FP) PO PRN (14:40)
[2024-02-01] MEDS ORDERED: MAG HYDROX/AL HYDROX/SIMETH 30 ML UNIT-DOSE CUP PO PRN (14:40)
[2024-02-01] MEDS ORDERED: POLYETHYLENE GLYCOL (HEALTHYLAX) 3350 17 GM PACKET PO PRN (14:40)
[2024-02-01] MEDS ORDERED: MAGNESIUM HYDROX 2400MG/30ML ORAL SUSPENSION 30 ML CUP PO PRN (14:40)
[2024-02-01] MEDS ORDERED: LOPERAMIDE HCL 2 MG CAPSULE PO PRN (14:40)
[2024-02-01] MEDS ORDERED: NICOTINE POLACRILEX 2 MG LOZENGE BC PRN (14:40)
[2024-02-01] MEDS ORDERED: NICOTINE POLACRILEX 2 MG GUM BUC PRN (14:40)
[2024-02-01] MEDS ORDERED: ALBUTEROL SO4 2.5/IPRATROPIUM 0.5 INH SOL 3 ML VIAL.NEB. NEB ONE (16:32)
[2024-02-01] MEDS: ALBUTEROL SO4 2.5/IPRATROPIUM 0.5 INH SOL 3 ML VIAL.NEB. NEB SCH (16:33)
[2024-02-01 18:54] LABS: PH,URINE 6.5 (5.0-8.0); URINE APPEARANCE CLEAR; URINE BILIRUBIN NEGATIVE (NEGATIVE); URINE COLOR YELLOW; URINE GLUCOSE (UA) NEGATIVE (NEGATIVE); URINE KETONE NEGATIVE (NEGATIVE); URINE LEUK ESTERASE NEGATIVE (NEGATIVE); URINE NITRITE NEGATIVE (NEGATIVE); URINE PROTEIN NEGATIVE (NEGATIVE)
[2024-02-01] MEDS: THIAMINE 100 MG TABLET PO SCH (21:28)
[2024-02-01] MEDS: MONTELUKAST NA 10 MG TABLET PO SCH (21:28)
[2024-02-01] MEDS: MELATONIN 5 MG TABLETS PO SCH (21:28)
[2024-02-01] MEDS: P-EPHED 60MG/TRIPROLIDI 2.5MG TABLET PO PRN (21:29)
[2024-02-01] MEDS: guaiFENesin 600 MG TABLET.ER (FP) PO PRN (21:29)
[2024-02-02] MEDS: ALBUTEROL SO4 HFA INHALER IH PRN (00:48)
[2024-02-02] MEDS: ACETAMINOPHEN 325 MG TABLET (FP) PO PRN (00:49)
[2024-02-02] MEDS: BENZOCAINE/MENTHOL (CHLORASEPTIC ) LOZENGE MM PRN (00:52)
[2024-02-02] MEDS: BENZONATATE 200 MG CAPSULE PO PRN (02:28)
[2024-02-02] MEDS: PRENATAL VITAMINS W/ FOLIC ACID TABLET (FP) PO SCH (09:17)
[2024-02-02] MEDS: ESCITALOPRAM OXALATE 10 MG TABLET PO SCH (09:17)
[2024-02-02] MEDS ORDERED: ALBUTEROL SO4 2.5/IPRATROPIUM 0.5 INH SOL 3 ML VIAL.NEB. NEB ONE ×2 (11:01→11:06)
[2024-02-02] MEDS: ALBUTEROL SO4 2.5/IPRATROPIUM 0.5 INH SOL 3 ML VIAL.NEB. NEB PRN (11:32)
[2024-02-02] MEDS: LISINOPRIL 20 MG TABLET PO SCH (11:33)
[2024-02-02] MEDS: predniSONE 20 MG TABLET (UD) PO SCH (11:33)
[2024-02-02 15:17] LABS: HEMATOCRIT 37.7 % (35.4-49); HEMOGLOBIN 12.5 GM/dL (11.7-16.9); MCH 29.3 pg (25.7-33.7); MCHC 33.2 g/dl (32.0-35.9); MEAN PLT VOLUME 6.7 fl (7.5-11.1); PLATELET COUNT 195 10^3/uL (134-434); RBC 4.28 M/mm3 (4.00-5.60); RDW 17.8 % (11.9-15.9); WHITE BLOOD COUNT 3.9 K/mm3 (4.0-10.0)
[2024-02-02 16:23] LABS: POTASSIUM 4.1 mmol/L (3.5-5.1)
[2024-02-02 16:30] LABS: CALCIUM 9.2 mg/dL (8.5-10.1)
[2024-02-02 16:31] LABS: ALBUMIN 3.4 g/dl (3.4-5.0); BLOOD UREA NITROGEN 12.4 mg/dL (7-18)
[2024-02-02 16:34] LABS: CREATININE 0.9 mg/dL (0.55-1.3)
[2024-02-02 16:36] LABS: BILIRUBIN,TOTAL 0.3 mg/dL (0.2-1); TOT PROT 6.4 g/dl (6.4-8.2)
[2024-02-02] MEDS: ALBUTEROL SO4 2.5/IPRATROPIUM 0.5 INH SOL 3 ML VIAL.NEB. NEB ONE (20:03)
[2024-02-02] MEDS: FAMOTIDINE 20 MG TABLET PO SCH (21:33)
[2024-02-02] MEDS: TAMSULOSIN HCL 0.4 MG CAP PO SCH (21:33)
[2024-02-02] MEDS ORDERED: ALBUTEROL SO4 2.5/IPRATROPIUM 0.5 INH SOL 3 ML VIAL.NEB. NEB PRN (22:00)
[2024-02-02] MEDS: IBUPROFEN 600 MG TABLET (FP) PO PRN (22:30)
[2024-02-02] MEDS: hydrOXYzine PAMOATE 25 MG CAPSULE (FP) PO PRN (22:32)
[2024-02-03] MEDS: ALBUTEROL SO4 2.5/IPRATROPIUM 0.5 INH SOL 3 ML VIAL.NEB. NEB PRN (07:18)
[2024-02-03] MEDS: amLODIPine BESYLATE 10 MG TABLET (FP) PO SCH (07:34)
[2024-02-04] MEDS ORDERED: BENZONATATE 200 MG CAPSULE PO PRN (11:30)
[2024-02-04] MEDS: guaiFENesin 600 MG TABLET.ER (FP) PO SCH (12:03)
[2024-02-06] MEDS ORDERED: ALBUTEROL SO4 2.5/IPRATROPIUM 0.5 INH SOL 3 ML VIAL.NEB. NEB PRN (16:11)
[2024-02-06] MEDS: LIDOCAINE 5% TOPICAL PATCH TP SCH (17:35)
[2024-02-06] MEDS ORDERED: ALBUTEROL SO4 2.5/IPRATROPIUM 0.5 INH SOL 3 ML VIAL.NEB. NEB SCH (20:00)
[2024-02-06] MEDS: LIDOCAINE PATCH REMOVAL MC SCH (21:44)
[2024-02-06] MEDS: BACLOFEN 10 MG TABLET (FP) PO SCH (21:47)
[2024-02-07] MEDS ORDERED: PATIENT'S OWN MEDICATION (NON-FORMULARY) (Ipratropium/Albuterol Sulfate 1 PUFF Inhaler) IH SCH (10:00)
[2024-02-07] MEDS ORDERED: ALBUTEROL SO4 0.083% IH SOL 2.5 MG/3 ML VIAL.NEB. NEB PRN (12:54)
[2024-02-07] MEDS: PATIENT'S OWN MEDICATION (NON-FORMULARY) (Ipratropium/Albuterol Sulfate 4 GM) IH SCH (13:36)
[2024-02-07] MEDS: OXYMETAZOLINE 0.05% NASAL SOLUTION 15 ML BOTTLE NS PRN (21:36)
[2024-02-13] MEDS: AZITHROMYCIN 250 MG TABLET PO ONE (17:49)
[2024-02-14] MEDS: AZITHROMYCIN 250 MG TABLET PO SCH (10:04)
[2024-02-16 06:52] VITALS: PULSE 72; TEMP 97.4
[2024-02-16] MEDS: NALOXONE (NYS OPIOID OVERDOSE PROGRAM) 4 MG/0.1 ML SPRAY NS PRN (09:15)
[2024-02-16] MEDS: NALOXONE (NARCAN) HCL 4 MG/0.1 ML SPRAY NS ONE (09:15)
[2024-02-16 15:05] VITALS: BP 112/65; RESP 18
== END 2024-02-16 09:15 | disposition home or self-care (01) | DRG 772 ==
LOC: YASAS 13:27 → Y3NR 15:37 → Y5N 02-03 15:12
PROVIDERS: ADMIT Psychiatry & Neurology Pain Medicine; ATTEND Psychiatry & Neurology Pain Medicine
PROC: HZ42ZZZ Group Counseling for Substance Abuse Treatment, Cognitive-Behavioral (ICD-10-PCS; principal; 2024-02-01)
DX: F14.20 Cocaine dependence, uncomplicated (principal); F17.210 Nicotine dependence, cigarettes, uncomplicated; F19.24 Other psychoactive substance dependence with psychoactive substance-induced mood disorder; F41.9 Anxiety disorder, unspecified; F32.A Depression, unspecified; I10 Essential (primary) hypertension; J44.9 Chronic obstructive pulmonary disease, unspecified; J41.0 Simple chronic bronchitis; K21.9 Gastro-esophageal reflux disease without esophagitis; M54.50 Low back pain, unspecified; G89.29 Other chronic pain; N40.0 Benign prostatic hyperplasia without lower urinary tract symptoms; R09.81 Nasal congestion
CPT/HCPCS: 0241U-QW; 36415; 71046-TC-FY; 80053; 80305; 80307; 81003; 85027; 86780; 87811; 93005; 93010; 94640; J0475